=== PATIENT | female | born 1955 | race Caucasian/White ===

== ENCOUNTER 2020-12-10 08:30 | Outpatient (CLI) | payer MEDICARE, SELFPAY ==
--- NOTE | ~2020-12-10 | CT_ITS ---
. EXAMINATION: CT knee RT w con DATE: 12/10/2020 09:21 INDICATION: Right knee pain TECHNIQUE: High resolution computed tomography (CT) arthrogram of the right knee was performed follow ing intra-articular administration of 42 mL of 2:1:3 mixture of Omnipaque-240:1% lidocaine:sterile sa line but without intravenous contrast. Details of the joint injection have been dictated separately. Additional sagittal and coronal reconstructions were performed. Automated exposure control and iterat zeynep reconstruction technique were employed. The dose-length product was 447.50 mGy-cm. COMPARISON: None FINDINGS: Bone alignment is normal. No fracture. Contrast extends into a large Angulo's cyst measuring 6.8 cm cr aniocaudally and 4.3 x 1.8 cm in maximal transaxial dimensions. The muscles, ligaments and tendons ap pear unremarkable although sensitivity is significantly more limited than with MRI. Medial compartment: Complex tear along the inner third of the posterior horn of the medial meniscus with subtle truncatio n of the inner free edge at the medial side of the posterior horn resulting from lateral displacement of a small meniscal flap which extends short distance anteriorly from the lateral side of the concrete pipe maker ior horn along the shoulder the intercondylar eminence. There is shallow chondral ulceration and fiss uring involving less than 50% the cartilage thickness at the anterior weightbearing medial femoral co ndyle. Deeper fissuring and ulceration involving greater than 50% the cartilage thickness at the cent ral weightbearing medial femoral condyle. Mild partial thickness cartilage loss with smooth chondral surface along the anterior medial aspect of the medial tibial plateau. Lateral compartment: Lateral meniscus appears normal. Partial-thickness cartilage loss with smooth chondral surface along the lateral third of the of the central to posterior weightbearing lateral femoral condyle. Tiny part ial-thickness chondral fissure involving up to 50% the cartilage thickness at the medial side of the lateral tibial plateau along the shoulder the intercondylar eminence. Patellofemoral compartment: Partial-thickness chondral fissuring involving less than 50% the cartilage thickness at the patellar apical ridge and medial facet. Small central subchondral osteophyte at the junction of the inferior m edial trochlea and the anteriormost margin of the weightbearing medial femoral condyle. IMPRESSION: 1. Complex tear of the posterior horn of the medial meniscus which remains restricted to the inner fr ee edge with small displaced meniscal flap. 2. 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 3. Large Angulo's cyst. Reviewed, dictated and finalized at location A. IMPRESSION: 1. Complex tear of the posterior horn of the medial meniscus which remains rest ricted to the inner free edge with small displaced meniscal flap. 2. Mild tricompartmental osteoarthritis with moderate grade chondromalacia in t he lateral and patellofemoral compartments and at the medial tibial plateau and with moderate to high-grade chondromalacia at the central weightbearing medial femoral condyle. 3. Large Angulo's cyst.
--- NOTE | ~2020-12-10 | XR_ITS ---
EXAMINATION: XR fl inj knee RT for MR/CT DATE: 12/10/2020 09:19 INDICATION: Right knee pain TECHNIQUE: A time-out was performed to verify the patient's name, date of , and procedure to b e performed. The procedure including the risks, benefits, and alternatives was discussed with the pat ient. Risks discussed included bleeding and infection. The patient understood the risks and agreed to proceed. The skin overlying the lateral aspect of the right knee joint was prepped and draped in us ua sterile fashion. Anesthetic was administered with 1% lidocaine subcutaneously. A 22 G needle wa s advanced under fluoroscopic guidance into the joint. 42 mL of an injectate consisting of 2:1:3 of O mnipaque-240:1% lidocaine:sterile saline was instilled with intermittent fluoroscopy confirming intra -articular administration. The needle was removed and the entry site was cleaned and dressed. There were no immediate complications. Fluoroscopy exposure time was 0.1 minutes. The total number of image s was 4. FINDINGS: Real-time fluoroscopy demonstrates the needle and contrast in the right knee joint. IMPRESSION: 1. Right knee joint injection of iodinated contrast for subsequent CT arthrogram which will be dictat ed separately. Reviewed, dictated and finalized at location A. IMPRESSION: 1. Right knee joint injection of iodinated contrast for subsequent CT arthrogra m which will be dictated separately.
== END 2020-12-10 08:31 | disposition home or self-care (01) ==
PROVIDERS: PCP Internal Medicine; Visit Provider Orthopaedic Surgery
DX: S83.231A Complex tear of medial meniscus, current injury, right knee, initial encounter (principal); X58.XXXA Exposure to other specified factors, initial encounter; M71.21 Synovial cyst of popliteal space [Baker], right knee; M17.11 Unilateral primary osteoarthritis, right knee
CPT/HCPCS: 20610; 73701; 77002; Q9966

== ENCOUNTER 2021-06-15 07:14 | Outpatient (CLI) | payer MEDICARE, SELFPAY ==
--- NOTE | 2021-06-15 | ECG_ITS ---
Measurements Intervals [place] Rate: 69 P: 42 IN: 173 QRS: 4 QRSD: 95 T: 11 QT: 388 QTc: 417 Interpretive Statements SINUS RHYTHM BORDERLINE R WAVE PROGRESSION, ANTERIOR LEADS BASELINE ARTIFACT- I, II, AVR, AVL, AVF BORDERLINE ECG Electronically Signed On 06-15-2021 15:31:24 CDT by Lupillo Collazo D.O.
[2021-06-15 08:16] LABS: Anion Gap 5 mmol/L (8-16); Blood Urea Nitrogen 16 mg/dL (7-17); Calcium 9.4 mg/dL (8.4-10.2); Carbon Dioxide 32 mmol/L (22-30); Chloride 103 mmol/L (98-107); Estimated Glomerular Filt Rate > 60; Glucose 96 mg/dL (65-110); Potassium 4.2 mmol/L (3.4-5.0); Sodium 140 mmol/L (137-145)
== END 2021-06-15 07:15 | disposition home or self-care (01) ==
PROVIDERS: PCP Internal Medicine
DX: Z01.818 Encounter for other preprocedural examination (principal); I10 Essential (primary) hypertension
CPT/HCPCS: 36415; 80048; 93005

== ENCOUNTER 2021-07-17 08:50 | Emergency (ER) | payer MEDICARE, SELFPAY ==
[2021-07-17 09:04] VITALS: BP 148/86; PULSE 97; RESP 18; TEMP 37.6; O2SAT 97
--- NOTE | 2021-07-17 10:02 | ED.URI ---
HPI - URI/Sore Throat General Chief Complaint: Upper Respiratory Infection Stated Complaint: fever/cough Source: patient and RN notes reviewed Limitations: no limitations History of Present Illness HPI Narrative: The unvaccinated patient, ex-smoker/nondrinker, presents with cough. Patient states she has a couple day history of fever to 100 p.o., associated with persistent dry cough. No loss of taste/smell, sneezing, wheezing, CP, sore throat, vomiting/diarrhea, S OB. Symptoms are mild to moderate and worse supine/sleeping. [id number] testing for Covid is early/strongly positive . Related Data Allergies Allergy/AdvReac Type Severity Reaction Status Date / Time azithromycin Allergy Unknown Blister Verified 07/17/21 09:13 erythromycin base Allergy Unknown Blister Verified 07/17/21 09:13 Review of Systems Review of Systems: General/Constitutional: No weight loss, REPORTS possible fever Eyes: N0: Redness,discharge Ears/Nose/Throat: No: Epistaxis,ear discharge Respiratory: Denies: Hemoptysis Gastrointestinal: No Vomiting, Bleeding-rectal Skin: No Lumps, eruption Neurologic: No Focal Weakness,Sz Hematologic: Denies: Petechiae/Purpura Psychiatric: No: Suicida ideationl All Other Systems: Reviewed and Negative FOR[facility]LY [facility] Family History Family History Father Family history of malignant neoplasm Family history of diabetes mellitus in first degree relative Other Carcinoma of colon Social History Social History Smoking status: Former smoker Alcohol intake: never Comments At time of signature, agree with nursing past medical, surgical, social and family history. There is no relevant family history pertinent to the presenting complaint Exam Narrative: General Appearance: Well nourished EYE: PERRLA, Conjunctiva clear Ears: Auditory canal normal, TM normal Nose: Rhinorrhea, Mucousal erythema Mouth/Throat: MM moist, Uvula midline, Pharyngeal erythema Neck: Supple, No adenopathy Respiratory: No respiratory distress, distant/decreased BS at bases otherwise Clear to auscultation Cardiovascular: RRR, No JVD Musculoskeletal: Non tender, Normal strength Skin: Warm, Dry Neurological: A&O x3, CN II-XII intact Psychiatric: Normal mood, Normal affect Course Vital Signs Vital signs: Vital Signs Temperature 99.6 F 07/17/21 09:04 Pulse Rate 97 07/17/21 09:04 Respiratory Rate 18 07/17/21 09:04 Blood Pressure 148/86 H 07/17/21 09:04 Pulse Oximetry 97 07/17/21 09:04 Temperature 99.6 F 07/17/21 09:04 Pulse Rate 97 07/17/21 09:04 Respiratory Rate 18 07/17/21 09:04 Blood Pressure 148/86 H 07/17/21 09:04 Pulse Oximetry 97 07/17/21 09:04 MDM - URI/Sore Throat Lab Data Labs: Lab Results 07/17/21 Range/Units 09:43 POC SARS CoV-2 Ag Positive (Negative) Influenza A Screen Negative Reference Range: Negative Influenza B Screen Negative Reference Range: Negative Discharge Plan Discharge Clinical Impression: COVID-19 Patient Disposition: Home, Self-Care Condition: Stable Instructions: Antibiotic Form, COVID-19 (Coronavirus Disease 2019) (ED) Additional Instructions: Isolate for 10 days; inform and quarantine close contacts Get and take supplements vitamins D, C, B, and zinc; consider baby aspirin the next month Return for walking pulse ox less than 93%; considering discussing promptly this week with your PMD monoclonal antibodies Consider reviewing You tube: Dr Arce- If you get covid Prescriptions: New benzonatate 100 mg capsule 100 mg PO TID PRN (Reason: cough) Qty: 20 RF: 2 codeine-guaifenesin 10-100 mg/5 mL liquid 7.5 ml PO Q6H PRN (Reason: cough) Qty: 118 RF: 0 ivermectin 3 mg tablet 15,
== END 2021-07-17 10:00 | disposition home or self-care (01) ==
PROVIDERS: Emergency Provider Emergency Medicine; PCP Internal Medicine
DX: U07.1 COVID-19 (principal)
CPT/HCPCS: 87426; 87804; 99213; C9803; G0463

== ENCOUNTER 2021-07-22 06:37 | Outpatient (RCR) | payer MEDICARE, SELFPAY ==
[2021-07-22] MEDS: FAMOTIDINE 20 MG TABLET PO (08:13)
[2021-07-22] MEDS: ACETAMINOPHEN 325 MG TABLET 650 MG PO (08:13)
[2021-07-22] MEDS: diphenhydrAMINE HCl CAP 25 MG CAPSULE PO (08:13)
[2021-07-22 08:15] VITALS: BP 139/71; PULSE 90; RESP 18; TEMP 36.9; O2SAT 92
[2021-07-22 09:39] VITALS: BP 132/62
--- NOTE | 2021-07-22 10:12 | PDRADONCCN ---
Impression Probably Stage I RUL cancer in somewhat with compromised respiratory function from smoking and prior NAYAN lobectomy. I would recommend SBRT in 5 fractions over two weeks. I reviewed the logistics and rationale of therapy, including the need for simulation session. I also reviewed the acute and chronic risks of therapy, including fatigue, cough, trouble swallowing, SOB, rib fractrure, chestwall pain, esophageal stenosis, and very rare--but possible fatal--bleeding events. The patient voiced understanding and wishes to move forward. We will work on getting approval and schedule her for simulation before the end of the year. [facility] - Date/Time Seen 07/22/21 10:12 - Identifying Data 66 y/o female with history of T1 N0 MIKIE of left upper lung s/p left upper lobectomy. She presents now for a new lesion in the right upper lung. - History of Present Illness Nidia had a lobectomy for what proved to be a pT1N0 left upper lobe adenocarcinoma in 2018. She tolerated the lobectomy well, but did have a serious pneumothorax from biopsy prior to this that required a chest tube. She receive no adjuvant therapy for this cancer. She has been under radiological surveillance since then. A new lesion has been identified in the right upper lobe. This has enlarged on recent scans and is now about 9 mm. Staging PET/CT shows hypermetabolism in the nodule, but no signs of regional or distant disease spread. She is refusing repeat biopsy. The patient has some baseline SOB and cough. She denies chest pain. She continues to smoke 1 ppd. - Family History Family History (Last Reviewed 09/11/20 @ 07:14 by Ivania Leon [facility]) Father Family history of malignant neoplasm Family history of diabetes mellitus in first degree relative Other Carcinoma of colon - Social History Social History (Last Reviewed 03/18/21 @ 08:02 by Salud Lora [facility]) Alcohol Use: Alcohol intake: never Others: Spiritual care concerns: No Smoking Status: Smoking status: Former smoker Tobacco type: cigarettes Approximate Smoking End Date: 2005 Smoking Pack-years: Smoking packs per day: 1 Smoking cigarettes per day: 20.0 Years smoked: 35 Smoking pack-years: 35.00 - Medications Active Medications Generic Name Dose Route Start Last Admin Trade Name Freq PRN Reason Stop Dose Admin Acetaminophen 650 mg 07/22/21 00:00 07/22/21 08:13 Acetaminophen 325 Mg Tablet PO 07/22/21 23:59 650 mg PREMED YUNIOR Administration Albuterol 4 - 8 puff 07/22/21 00:00 Albuterol Sulfate (*Sp) Inhaler INHALATION 07/22/21 23:59 Q20M PRN Drug Reaction Alteplase, Recombinant 2 mg 07/22/21 00:00 Alteplase 2 Mg Vial (Cathflo) IV PUSH 07/22/21 23:59 DIRECTED PRN Line Occlusion Diphenhydramine HCl 25 mg 07/22/21 00:00 07/22/21 08:13 Diphenhydramine Hcl Cap 25 Mg Capsule PO 07/22/21 23:59 25 mg PREMED YUNIOR Administration Diphenhydramine HCl 50 mg 07/22/21 00:00 Diphenhydramine Hcl Inj 50 Mg/Ml Vial IV PUSH 07/22/21 23:59 ONCE PRN Drug Reaction Epinephrine HCl 0.3 mg 07/22/21 00:00 Epinephrine Hcl Inj 1 Mg/Ml Ampul IM 07/22/21 23:59 ONCE PRN Drug Reaction Famotidine 20 mg 07/22/21 00:00 07/22/21 08:13 Famotidine 20 Mg Tablet PO 07/22/21 23:59 20 mg PREMED YUNIOR Administration Famotidine 20 mg 07/22/21 00:00 Famotidine 20 Mg/2 Ml Vial IV PUSH 07/22/21 23:59 ONCE PRN Drug Reaction Heparin Sodium (Porcine) 500 units 07/22/21 00:00 Heparin Sodium Lock Flush 500 Units/5 Ml Syringe IV PUSH 07/22/21 23:59 DIRECTED PRN Flush Hydrocortisone Sodium Succinate 100 mg 07/22/21 00:00 Hydrocortisone Sodium Succinate 100 Mg/2 Ml Vial IV PUSH 07/22/21 23:59 ONCE PRN Drug Reaction Casirivimab 600 mg/ Imdevimab 110 mls @ 220 mls/hr 07/22/21 00:00 07/22/21 09:00 600 mg/ Sodium Chlori
--- NOTE | 2021-07-22 10:24 | P.RADPN_ITS ---
Radiation Narrative Note - Date/Time Date/Time: 07/22/21 10:24 - Narrative Narrative: SPECIAL MEDICAL RADIATION PHYSICS CONSULT REQUEST MEDICAL NECESSITY: I am requesting a special medical radiation physics consultation due to the complexity of this patient?s case. Additional medical physics work will be required above and beyond what is typically performed for standard radiation therapy treatment planning to ensure accurate and safe delivery of the radiation treatment. SPECIAL TREATMENT PROCEDURE: Stereotactic radiosurgery/radiotherapy will be utilized to treat the patient's tumor with extremely high accuracy in a single fraction or limited number of fractions (< 5). Due to the large fraction size and close proximity of critical normal tissues there is increased risk of late toxicity. Therefore, special calibration of the treatment machine is necessary to ensure extremely precise positioning of the treatment isocenter. Please perform all necessary calculations and measurements associated with assistant manager quality management and dosimetric planning involved in planning and delivering stereotactic radiosurgery to this patient. Antonio Tejeda MD, PhD
--- NOTE | 2021-07-22 10:25 | WPDRADIATNAR ---
Radiation Narrative Note - Date/Time Date/Time: 07/22/21 10:25 - Narrative Narrative: SPECIAL TREATMENT MANAGEMENT MEDICAL NECESSITY: A special treatment management code (93968) has been charged for this patient due to the additional time and effort required of myself and the department staff while performing and/or managing a special treatment situation. This procedure has been charged only once during the entire course of treatment. SPECIAL TREATMENT PROCEDURE: Stereotactic radiosurgery/radiotherapy will be utilized to treat the patient's tumor with extremely high accuracy in a single fraction or limited number of fractions (< 5). Fabrication of a unique custom rigid immobilization device, sophisticated computerized treatment planning, special consideration of the tolerance of adjacent critical normal tissues to large dose fractions, and complex delivery techniques required for this special treatment procedure exceed that typically involved in a usual course of radiation therapy. PAIN SCORE: 0/10 Intervention planned: N/a Antonio Tejeda MD
--- NOTE | 2021-07-22 10:26 | WPDONCRADTXP ---
Radiation Treatment Plan - Date/Time Date/Time: 07/22/21 10:26 - Diagnosis Diagnosis: Stage I NAYAN NSCLC - Summary Summary: TREATMENT INTENT: Cure SPECIAL TEST(S) INTERPRETED FOR TUMOR DELINEATION: None CHEMOTHERAPY CONSIDERATIONS: NOne PROTOCOL ENROLLMENT: None TREATMENT SITE(S): NAYAN NUMBER OF AREAS OR HADDAD: 1 treatment area(s) NUMBER OF TREATMENT PORTS: Arc-based SBRT IMMOBILIZATION: Alpha-cradle TREATMENT DEVICES: SBRT QA TREATMENT MODALITY: EBRT PLANNED DOSE: See constraint form FRACTIONATION: 2-3x/week TECHNIQUE CONTEMPLATED: SBRT MEDICAL NECESSITY FOR SRS TREATMENT PLANNING: An ablative radiation dose is to be delivered to the target lesion in only 1-5 fractions, which is in excess of the dose commonly utilized with conventional treatments. The target volume is in close proximity to critical normal structures (BP, lung, esophagus, spinal cord, heart) and must be treated with very narrow margins to adequately protect immediately adjacent structures in order to reduce the probability of radiation toxicity. The dose required to deliver to the target volume exceeds the tolerance of these adjacent normal structures.
--- NOTE | 2021-07-23 08:03 | PC.NURSE ---
Called Ms Levine and she stated she is not doing any better than yesterday, she is still having a fever,and had some diarrhea last night. She stated she is short of breath and I told her to go to the ER and she said she is refusing at this time, she is going to use her oxygen at home for now. She is going to continue the Benadryl and Tylenol as scheduled. She does not have any other questions at this time.
== END 2021-07-22 16:00 ==
LOC: AMCINF 06:37
PROVIDERS: PCP Internal Medicine; Visit Provider Internal Medicine Hematology & Oncology
DX: U07.1 COVID-19 (principal); I10 Essential (primary) hypertension
CPT/HCPCS: A9270; M0243; Q0243

== ENCOUNTER 2021-07-24 10:23 | Inpatient (IN) | payer MEDICARE, SELFPAY ==
[2021-07-24] VITALS (13 sets, daily range): BP systolic 121–154; BP diastolic 59–84; PULSE 82–111; RESP 18–32; TEMP 36.2–37.1; O2SAT 77–97; BMI 27.6
--- NOTE | ~2021-07-24 | XR_ITS ---
EXAMINATION: XR chest 1V portable DATE: 08/02/2021 11:28 INDICATION: Endotracheal tube repositioning TECHNIQUE: frontal view of the chest was obtained. COMPARISON: Chest radiograph dated 08/02/2021 at 6:24 AM FINDINGS: Endotracheal tube tip 3.4 cm above the margot. Nasogastric tube extends below the left hemidiaphragm with distal tip collimated off the study. Left upper extremity peripherally inserted central venous catheter (PICC) tip has advanced, now positioned in the caudal superior vena cava. No significant change in patchy airspace opacities in the bilateral mid and lower lung zones. No pleu ral effusion or pneumothorax. The cardiomediastinal silhouette is normal. IMPRESSION: 1. Lines and tubes in expected position as detailed above. 2. No significant change in patchy lung disease consistent with pneumonia in the bilateral mid and lo wer lung zones. Reviewed, dictated and finalized at location A. RDS CLERK IMPRESSION: 1. Lines and tubes in expected position as detailed above. 2. No significant change in patchy lung disease consistent with pneumonia in th e bilateral mid and lower lung zones.
--- NOTE | ~2021-07-24 | XR_ITS ---
EXAMINATION: XR chest 1V portable DATE: 07/28/2021 05:43 INDICATION: Increasing oxygen requirements. COVID-19 pneumonia. TECHNIQUE: A single frontal view of the chest was obtained. COMPARISON: Chest CT 07/24/2021, chest single view 07/24/2021 FINDINGS: There are peripheral reticular opacities in all lung zones. There are mild peripheral airsp carolyn opacities in the mid and lower lung zones. No pleural effusion or pneumothorax. The heart size is normal. IMPRESSION: 1. Diffuse lung disease with slight worsening from 07/24/2021, consistent with COVID-19 pneumonia. Reviewed, dictated and finalized at location A. ERY WORKER IMPRESSION: 1. Diffuse lung disease with slight worsening from 07/24/2021, consistent with C OVID-19 pneumonia.
--- NOTE | ~2021-07-24 | XR_ITS ---
EXAMINATION: XR chest 1V portable DATE: 07/24/2021 12:10 INDICATION: COVID positive and shortness of breath TECHNIQUE: frontal view of the chest was obtained. COMPARISON: Chest radiograph dated 09/04/2013 FINDINGS: Lung volumes are decreased. There are patchy peripheral predominant groundglass opacities in bilatera l mid and lower lung zones. No pleural effusion or pneumothorax. The cardiomediastinal silhouette is normal. Visualized bones and soft tissues are unremarkable. IMPRESSION: 1. Mild patchy airspace opacities in the bilateral mid and lower lung zones with peripheral predomina nce consistent with COVID pneumonia. Reviewed, dictated and finalized at location A. ER OUT IMPRESSION: 1. Mild patchy airspace opacities in the bilateral mid and lower lung zones wit h peripheral predominance consistent with COVID pneumonia.
--- NOTE | ~2021-07-24 | XR_ITS ---
EXAMINATION: XR chest 1V portable DATE: 07/29/2021 06:03 INDICATION: Intubation. TECHNIQUE: A single frontal view of the chest was obtained. COMPARISON: Chest single view 07/28/2021 FINDINGS: There are airspace and interstitial opacities in all lung zones bilaterally with a peripher al predominance. No pleural effusion or pneumothorax. The heart size is normal. The endotracheal tube tip is 1.2 cm above the margot. The nasogastric tube tip is beyond the inferior margin of the radiog raph, but at least to the stomach. IMPRESSION: 1. Stable diffuse lung disease, consistent with COVID-19 pneumonia. Reviewed, dictated and finalized at location A. EMS ADMINISTRATOR
--- NOTE | ~2021-07-24 | XR_ITS ---
XR chest ET placement 08/03/2021 19:07 Indication: Endotracheal tube placement Procedure: AP portable chest Comparison: 08/03/2021 and 08/02/2021 Findings: Endotracheal tube tip is directed towards the right mainstem bronchus. NG tube in the dista l esophagus. Interval development of large bilateral pneumothoraces with subcutaneous gas along the l eft lateral chest wall. There is also pneumomediastinum. There is extensive consolidation of the lung s, consistent with pneumonia. PICC line tip in the SVC. Impression: 1: Large bilateral pneumothoraces with pneumomediastinum and subcutaneous emphysema of the left late ral chest wall. 2: Extensive bilateral airspace disease, compatible with pneumonia versus edema or ARDS. 3: Endotracheal tube tube tip directed towards the right mainstem bronchus. Dr. Aly Haider discussed with the ICU casino manager Chandu Reza at 08/03/2021 19:13 BLANCHING MACHINE OPERATOR. Reviewed, dictated and finalized at location A. CHING MACHINE OPERATOR Impression: 1: Large bilateral pneumothoraces with pneumomediastinum and subcutaneous emph ysema of the left lateral chest wall. 2: Extensive bilateral airspace disease, compatible with pneumonia versus edema or ARDS. 3: Endotracheal tube tube tip directed towards the right mainstem bronchus. Dr. Aly Haider discussed with the ICU casino manager Chandu Reza at 08/03/2021 19: 13 BLANCHING MACHINE OPERATOR.
--- NOTE | ~2021-07-24 | XR_ITS ---
EXAMINATION: XR chest ET placement, XR abdomen NG/feed tube insert DATE: 07/28/2021 12:25 INDICATION: Endotracheal tube and nasogastric tube placement. TECHNIQUE: 1. frontal view of the chest was obtained. 2. AP view of the abdomen was obtained. COMPARISON: Chest radiograph dated 07/28/21 and 5:36 AM FINDINGS: Chest: Endotracheal tube tip 2.4 cm above the margot. Diffuse peripheral predominant reticular and mild airs pace opacities in the bilateral mid and lower lung zones. No pleural effusion or pneumothorax. The ca rdiomediastinal silhouette is normal. Visualized bones and soft tissues are unremarkable. Abdomen: Nasogastric tube tip in proximal side port in the body of the stomach. No dilated gas-filled bowel in the visualized abdomen. IMPRESSION: 1. And endotracheal and nasogastric tubes in expected positions. 2. Diffuse bilateral lung disease consistent with COVID pneumonia. Reviewed, dictated and finalized at location B. PRIOR AUTHORIZATION IMPRESSION: 1. And endotracheal and nasogastric tubes in expected positions. 2. Diffuse bilateral lung disease consistent with COVID pneumonia.
--- NOTE | ~2021-07-24 | XR_ITS ---
EXAMINATION: XR chest PICC line INDICATION: PICC insertion TECHNIQUE: Portable AP chest at 1216 hours and 1221 hours COMPARISON: 0959 hours FINDINGS: A left upper extremity PICC has been inserted. The second image demonstrates the PICC at th e superior cavoatrial junction. The endotracheal tube ends approximately 6.2 cm above the margot. Kvng ogastric tube is beyond the inferior margin of the radiograph. Patchy airspace opacities persist with out significant change. The cardiomediastinal silhouette is stable. There is no pleural effusion or p neumothorax. IMPRESSION: 1. Left upper extremity PICC ending with its tip at the superior cavoatrial 20, otherwise no signific ant change. Reviewed, dictated and finalized at location A. LION CUTTER IMPRESSION: 1. Left upper extremity PICC ending with its tip at the superior cavoatrial 20, otherwise no significant change.
--- NOTE | ~2021-07-24 | XR_ITS ---
EXAMINATION: XR chest 1V portable DATE: 08/03/2021 09:48 INDICATION: COVID pneumonia. Acute respiratory failure. TECHNIQUE: frontal view of the chest was obtained. COMPARISON: Chest radiograph dated 08/02/2021 FINDINGS: Endotracheal tube tip 1.4 cm above the margot. Nasogastric tube extends below the left hemidiaphragm with distal tip collimated off the study. Left upper extremity peripherally inserted central venous catheter (PICC) tip at the caudal superior vena cava. No significant change in patchy airspace opacities throughout the bilateral mid and lower lung zones. There is blunting at the left costophrenic angle bilateral cardiophrenic angles suspicious for small bilateral pleural effusions. No pneumothorax. The cardiomediastinal silhouette is normal. IMPRESSION: 1. Opacities in the bilateral mid to lower lung zones which could represent pneumonia, pulmonary rasta a, atelectasis, small pleural effusions or some combination thereof. Reviewed, dictated and finalized at location A. ERY ENGINEER IMPRESSION: 1. Opacities in the bilateral mid to lower lung zones which could represent pne umonia, pulmonary edema, atelectasis, small pleural effusions or some combinati on thereof.
--- NOTE | ~2021-07-24 | XR_ITS ---
EXAMINATION: XR chest 1V portable INDICATION: Respiratory failure, intubation TECHNIQUE: Portable AP chest at 1235 hours COMPARISON: 07/29/2021 FINDINGS: The endotracheal tube ends approximately 6.4 cm above the margot. The nasogastric tube is f ollowed as far as the stomach. Its tip is beyond the inferior margin of the radiograph. There are pat lisbeth airspace opacities of the lungs, left greater than right, with slight worsening on the left. No p leural effusion or pneumothorax is identified. The cardiomediastinal silhouette is normal. IMPRESSION: 1. Endotracheal tube approximately 6.4 cm above the margot. 2. Diffuse lung disease with interval worsening worsening on the left, consistent with COVID 19 pneum onia. Reviewed, dictated and finalized at location A. ER/WAITRESS ECONOMY CLASS IMPRESSION: 1. Endotracheal tube approximately 6.4 cm above the margot. 2. Diffuse lung disease with interval worsening worsening on the left, consiste nt with COVID 19 pneumonia.
--- NOTE | ~2021-07-24 | XR_ITS ---
EXAMINATION: XR chest ET placement DATE: 08/02/2021 06:40 INDICATION: Possible dislodged ET tube TECHNIQUE: frontal view of the chest was obtained. COMPARISON: Chest radiograph dated 08/01/2021 FINDINGS: Endotracheal tube tip 2.8 cm above the margot. Nasogastric tube extends below the left hemidiaphragm with distal tip collimated off the study. Left upper extremity peripherally inserted central venous catheter (PICC) which appears to have progressed slightly withdrawn since 07/31/2021 with distal tip now at the cephalad most superior vena cava. No significant change in the patchy airspace opacities in the bilateral mid and lower lung zones cons istent with pneumonia. Surgical round lucencies at the left lower lung zone which could represent und erlying emphysema or other cystic/cavitary lung disease. No pleural effusion or pneumothorax. The car diomediastinal silhouette is normal. IMPRESSION: 1. Endotracheal tube in expected position. Left PICC line has withdrawn with distal tip now at the ce phalad-most superior vena cava. 2. No significant change in patchy bilateral lung disease consistent with pneumonia superimposed over emphysema other cystic/cavitary lung disease in the left lower lung zone. Reviewed, dictated and finalized at location A. NDING UROLOGIST IMPRESSION: 1. Endotracheal tube in expected position. Left PICC line has withdrawn with di stal tip now at the cephalad-most superior vena cava. 2. No significant change in patchy bilateral lung disease consistent with pneum onia superimposed over emphysema other cystic/cavitary lung disease in the left lower lung zone.
--- NOTE | ~2021-07-24 | XR_ITS ---
EXAMINATION: XR chest 1V portable EXAM DATE: 08/01/2021 11:28 INDICATION: Respiratory failure. TECHNIQUE: Portable AP frontal chest x-ray was obtained. Comparison is made to prior examination from 07/31/2021, 07/30. FINDINGS: Endotracheal tube is 6 cm above the margot. There is a nasogastric tube seen with tip colli mated off the study, but below the left hemidiaphragm. Left-sided PICC line in position. Moderate amount of airspace disease with sparing of the upper lobes, consistent with pneumonia. There is significant interval progression in the amount of right-sided airspace disease over last few days , mild progression on the left. No pneumothorax or pleural effusion. Cardiomediastinal silhouette is normal. There are no osseous abnormalities identified. IMPRESSION: Bilateral pneumonia with interval progression. Reviewed, dictated and finalized at location A. ING BALL MOLDER
--- NOTE | ~2021-07-24 | XR_ITS ---
XR abdomen/kub 1V INDICATION: Evaluate G-tube position. TECHNIQUE: Limited KUB perform for evaluating NG tube . COMPARISON: 07/28/2021 FINDINGS: NG tube has been retracted, tip in the distal esophagus.. There are bilateral pneumothorace s. There is subcutaneous gas of the chest wall. IMPRESSION: 1: NG tube tip in the distal esophagus. Reviewed, dictated and finalized at location A. TRIMMER
--- NOTE | ~2021-07-24 | CT_ITS ---
EXAMINATION: CTA chest PE protocol DATE: 07/24/2021 13:11 INDICATION: Tachycardia, shortness of breath and COVID TECHNIQUE: Computed tomography (CT) pulmonary angiogram of the chest was performed with 100 mL Omnipa que-350 intravenous contrast. Additional 3D reconstructions utilizing coronal maximum intensity proje ction (MIP) were performed. Automated exposure control and iterative reconstruction technique were em ployed. The dose-length product was 348.41 mGy-cm. COMPARISON: None FINDINGS: Good contrast opacification of the pulmonary arteries. There is mild streak artifact from dense contr ast in the superior vena cava and right atrium. Mild scattered respiratory motion artifact which only mildly decreases sensitivity in some of the smaller subsegmental pulmonary arteries. No pulmonary em bolism. Peripheral and basilar predominant groundglass opacities, reticular septal line thickening an d subpleural bands. Small regions of more dense consolidation in the bilateral lower lobes. Bilateral mild central bronchiectatic changes. Mild peripheral cystic changes in the lungs. No pleural effusio n or pneumothorax. Heart size is normal. No pericardial effusion. Thoracic aorta is normal in caliber with no dissection. A few mildly dominant likely reactive right hilar lymph nodes. No pathologically enlarged thoracic lymphadenopathy. Small focus of hepatic steatosis along the ligamentum teres. Very small sliding-type hiatal hernia. Chronic mild superior endplate compression fracture at T8. IMPRESSION: 1. No pulmonary embolism. 2. Bilateral peripheral and lower lung predominant lung disease which could be due to acute pneumonia superimposed over mild emphysema or chronic interstitial lung disease in either usual interstitial p neumonia (UIP) or nonspecific interstitial pneumonia (NSIP) pattern. Reviewed, dictated and finalized at location A. [facility] [employer] IMPRESSION: 1. No pulmonary embolism. 2. Bilateral peripheral and lower lung predominant lung disease which could be due to acute pneumonia superimposed over mild emphysema or chronic interstitial lung disease in either usual interstitial pneumonia (UIP) or nonspecific inter stitial pneumonia (NSIP) pattern.
--- NOTE | ~2021-07-24 | XR_ITS ---
EXAMINATION: XR chest 1V portable INDICATION: Respiratory failure TECHNIQUE: Portable AP chest at 0957 hours COMPARISON: 07/30/2021 FINDINGS: The endotracheal tube ends approximately 6.2 cm above the margot. The nasogastric tube is i n the stomach. There are patchy airspace opacities throughout the lungs with continued interval worse laila of the left midlung zone. No pleural effusion or pneumothorax is identified. The cardiomediastin al silhouette is stable. IMPRESSION: 1. Diffuse lung disease with interval worsening on the left, consistent with COVID 19 pneumonia. Reviewed, dictated and finalized at location A. A DESIGNER IMPRESSION: 1. Diffuse lung disease with interval worsening on the left, consistent with CO VID 19 pneumonia.
--- NOTE | 2021-07-24 10:33 | ECG_ITS ---
Measurements Intervals [place] Rate: 98 P: 16 [place]: 151 QRS: -15 QRSD: 84 T: -13 QT: 329 QTc: 420 Interpretive Statements SINUS RHYTHM VOLTAGE CRITERIA FOR LVH BORDERLINE R WAVE PROGRESSION, ANTERIOR LEADS BORDERLINE ST-T WAVE ABNORMALITY- INFERIOR LEADS BORDERLINE ECG Electronically Signed On 07-24-2021 12:37:13 OUTPATIENT SERVICES DIRECTOR by Lupillo Collazo D.O.
[2021-07-24 10:54] LABS: Alveolar/Arterial O2 Gradient 144.4 mmHg; Base Excess ABG 1.6 mEq/l (+/-2.0); Carboxyhemoglobin 1.1 % THb (0-2.0); Fractional Inspired Oxygen 32 %; HCO3 ABG 23.4 mEq/l (22.0-26.0); Methemoglobin ABG 0.3 %THb (0-1.5); Oxygen Content ABG 17.1 %vol (16.0-22.0); Oxygen Saturation ABG 89.3 % (95.0-100.0); PCO2 ABG 29.4 mmHg (35.0-45.0); PO2 FiO2 Ratio Arterial Blood 1.54 %; Reduced Hemoglobin 13.8 %THb (0-5.0); Total Hemoglobin 14.4 g/dL (12.0-18.0)
[2021-07-24 10:55] LABS: pH ABG 7.519 (7.350-7.450)
[2021-07-24 10:57] LABS: Device NASAL CANNULA; Modified Allen's Test Pass; Oxyhemoglobin 84.8 % THb (90.0-100.0); PO2 ABG 49.4 mmHg (80.0-100.0); Site Drawn RIGHT RADIAL
[2021-07-24 11:00] LABS: Basophils Percent Auto 0.2 % (0.2-1.2); Hematocrit 45.3 % (37.0-47.0); Immature Granulocyte Absolute 0.03 K/mm3 (0.00-0.031); Immature Granulocyte Percent A 0.5 % (0-0.5); Lymphocytes Absolute Auto 1.04 K/mm3 (0.9-3.2); Mean Corpuscular HGB Conc 33.1 g/dl (32-36); Mean Corpuscular Hemoglobin 30.7 pg (26-34); Mean Corpuscular Volume 92.8 fl (80-100); Mean Platelet Volume 9.8 fl (7.4-10.4); Monocytes Absolute Auto 0.5 K/mm3 (0.1-0.6); Neutrophils Absolute Auto 4.9 K/mm3 (1.3-6.7); Neutrophils Percent Auto 75.3 % (45.5-73.1); Platelet Count Result 271 k/mm3 (150-375); Red Blood Count 4.88 M/mm3 (4.2-5.4); Red Cell Distribution Width 13.2 % (11.5-14.5); White Blood Count 6.5 K/mm3 (4.5-10.0)
--- NOTE | 2021-07-24 11:00 | ED.GENADULT ---
HPI - General Adult General Chief complaint: Shortness of Breath/Dyspnea Stated complaint: sob, covid Time Seen by Provider: 07/24/21 10:38 Source: patient Mode of arrival: EMS Limitations: no limitations History of Present Illness HPI narrative: Patient presents for evaluation of shortness of breath. She was seen at the [facility] last weekend with reports of cough. She tested positive for COVID at that time. She was given scripts for guaifenesin and tessalon. She states sometime between her [facility] Care visit and today she became SOB. She states she does not remember most of this past week so cannot provide me with an exact timeline of evolution of her symptoms. She has experienced fever and fatigue. She denies chills, chest pain and abdominal pain and diarrhea. Her also has COVID at this time. She states she quit smoking many years ago. EMS was contacted and brought pt in for further evaluation. She was saturating in the 70's on RA and mid 80's on 2 L NC. She received an infusion of Regen two days ago. Related Data Allergies Allergy/AdvReac Type Severity Reaction Status Date / Time azithromycin Allergy Unknown Blister Verified 07/22/21 08:16 erythromycin base Allergy Unknown Blister Verified 07/22/21 08:16 Review of Systems Review of Systems: CONSTITUTIONAL:Reports fever and fatigue EYES: Denies visual changes, redness, or discharge. ENT: Denies rhinorrhea, congestion, sore throat, or otalgia. CARDIOVASCULAR: Denies chest pain, palpitations, or edema. RESPIRATORY: Reports nonproductive cough and shortness of breath GASTROINTESTINAL: Reports episode of vomiting. Denies abdominal pain or diarrhea. GENITOURINARY: Denies dysuria or hematuria. SKIN: Denies rash or itching. MUSCULOSKELETAL: Denies back pain, joint pain, or myalgia. NEUROLOGIC: Reports generalized weakness. Denies headache, numbness, or dizziness PSYCHIATRIC: Denies anxiety or depression. [facility] Past Medical History Medical History (Updated 07/24/21 @ 12:50 by Michele Saez, SUZANNE, ) Cluster headaches GERD (gastroesophageal reflux disease) Surgical History Surgical History H/O: hysterectomy History of medial meniscus repair of left knee History of medial meniscus repair of right knee Family History Family History Father Family history of malignant neoplasm Family history of diabetes mellitus in first degree relative Other Carcinoma of colon Social History Social History Smoking packs per day: 1 Smoking cigarettes per day: 20.0 Years smoked: 35 Smoking pack-years: 35.00 Smoking status: Former smoker Tobacco type: cigarettes Alcohol intake: never Substance use: never Living arrangements: with family Gender identity (if verbalized by the patient): Female Sexual Orientation (if Verbalized by the Patient): Straight or Heterosexual Spiritual care concerns: No Exam Narrative: GENERAL: Appears acutely ill, moderate amount of distress. HEAD: Normocephalic, atraumatic. EYES: PERRLA and EOMI. ENT: Nares clear, no rhinorrhea or epistaxis. Mucous membranes moist. Oropharynx without tonsillar hypertrophy exudate or other lesions. Bilateral TMs pearly bond nonbulging NECK: Supple. No adenopathy or masses. No carotid bruits or JVD CHEST: Rales noted bilaterally. Tachypneic. O2 at 3 L per nasal cannula. HEART: Rate 110. Normal rhythm. No murmur heard. Normal peripheral pulses. ABDOMEN: Soft, nontender, nondistended, normal active bowel sounds. EXTREMITIES: Normal range of motion. No edema. SKIN: Warm, dry, no rash. NEURO: No focal deficits. Alert and oriented x3. PSYCH: Normal mood and affect. Course Course Emergency Course: This is a 66-year-old female who presented with reports of shortness of breath with recent diagnosis of
--- NOTE | 2021-07-24 11:02 | PC.NURSE ---
pt here Severino Levine can be reached at [phone]. family instructed that he cannot go into the room w/ patient due to SS. or wait in the waiting room and is to return home or wait in the car for updates.
[2021-07-24 11:14] LABS: Alanine Aminotransferase 74 U/L (4-35); Albumin Level 4.3 g/dL (3.5-5.1); Alkaline Phosphatase 246 U/L (38-126); Anion Gap 13 mmol/L (8-16); Aspartate Amino Transferase 63 U/L (14-36); Bilirubin,Total 0.6 mg/dL (0.2-1.3); Blood Urea Nitrogen 23 mg/dL (7-17); Calcium 9.7 mg/dL (8.4-10.2); Carbon Dioxide 26 mmol/L (22-30); Chloride 101 mmol/L (98-107); Estimated Glomerular Filt Rate > 60; Glucose 134 mg/dL (65-110); Potassium 3.7 mmol/L (3.4-5.0); Sodium 140 mmol/L (137-145)
[2021-07-24] MEDS: ALBUTEROL SULFATE NEB 2.5 MG/3 ML INH INHALATION (11:32)
[2021-07-24] MEDS: IPRATROPIUM BR 0.02% INH SOLN 0.5 MG/2.5 ML VIAL INHALATION (11:33)
[2021-07-24 11:43] LABS: Creatine Kinase 61 U/L (30-135); Lactate Dehydrogenase 1057 U/L (313-618)
[2021-07-24 11:52] LABS: Troponin I < 0.012 ng/mL (0.000-0.034)
[2021-07-24 11:54] LABS: Lactic Acid Reflex 1.5 mmol/L (0.7-2.1)
[2021-07-24] MEDS: methylPREDNISolone SOD SUCC 125 MG VIAL IV PUSH (13:16)
[2021-07-24] MEDS: DOXYCYCLINE IV 100 MG in SODIUM CHLORIDE 0.9% IV 100 ML IVPB (13:21)
[2021-07-24 14:45] LABS: Troponin I < 0.012 ng/mL (0.000-0.034)
--- OUTSIDE RECORDS SUMMARY | 2021-07-24 17:43 | XMS_ITS ---
:1955 Author Care Team Providers Name Role Phone DR. JOE TSE Primary Care Provider [phone] DR. JOE TSE Referring Provider [phone] Allergies None recorded. Medications Name Status Start Date Stop Date ? ? amoxicillin 250 mg/5 mL oral suspension Completed ? 10/28/2020 amoxicillin 875 mg tablet Completed ? 2020 amoxicillin 875 mg-potassium clavulanate Completed ? 10/28/2020 125 mg tablet azithromycin 250 mg tablet Completed ? 10/28 Boostrix Tdap 2.5 Lf unit-8 mcg-5 Lf/0.5 mL intramuscular syring e Completed ? 10/28/2020 ADM 0.5ML IM UTD carvedilol 12.5 mg tablet Completed ? 2020 cefuroxime axetil 500 mg tablet Completed ? 10/28/2020 codeine 10 mg-guaifenesin 100 mg/5 mL oral Completed ? 10/28/2020 liquid Emgality 120 mg/mL subcutaneous syringe Completed ? 10/28/2020 fluconazole 150 mg tablet Completed ? 2020 fluticasone propionate 50 mcg/actuation Completed ? 10/28/2020 nasal spray,suspension gabapentin 100 mg capsule Completed ? 2020 hydrocodone 5 mg-acetaminophen 325 mg Completed ? 10/28/2020 tablet levofloxacin 500 mg tablet Completed ? 10/28 Lotemax 0.5 % eye gel drops Completed ? 10/19 methocarbamol 750 mg tablet Completed ? 10/19 methylprednisolone 4 mg tablets in a dose Completed ? 10/28/2020 pack moxifloxacin 0.5 % eye drops Completed ? 05/2021 nitrofurantoin macrocrystal 50 mg capsule Completed ? 10/28/2020 prednisone 10 mg tablet Completed ? 10/29/19 2
--- OUTSIDE RECORDS SUMMARY | 2021-07-24 17:43 | XMS_ITS | Encounter Summary ---
:1955 Author Care Team Providers Name Role Phone Dr. Guillaume Morales Primary Care Provider [phone] Dr. Guillaume Morales Referring Provider [phone] Reason for Visit Right Knee Problem/Pain Assessment and Plan Assessment Note patient returns status post knee a rthroscopy right pain is resolving low bit tender still a totally should go away wi th time will see in 2 weeks if she still hurts consider cortisone injection discu ssed the findings at surgery including and gave her pictures of it thanks 1. Pain of right knee joint Discussion Note: None recorded.Patient educational handouts: No information available. Plan of Care Reminders Provider Appointments None ? ? recorded. Lab None ? ? recorded. Referral None ? ? recorded. Procedures None ? ? recorded. Surgeries None ? ? recorded. Imaging None ? ? recorded. Medications Name Start Date ? ? carvedilol 12.5 mg tablet ? Take 1 tablet twice a day by oral route. Elderberry ? 1250 mg Fish Oil 10/24/2016 takes 1200mg daily Kenalog 10 mg/mL suspension for injection ? In office injection administered by the provider lecithin 1,200 mg capsule 10/24/2016 Take 1 capsule every da
--- OUTSIDE RECORDS SUMMARY | 2021-07-24 17:43 | XMS_ITS ---
:1955 Author Care Team Providers Name Role Phone DR. JOE TSE Primary Care Provider [phone] DR. JOE TSE Referring Provider [phone] Allergies None recorded. Medications Name Status Start Date Stop Date ? ? amoxicillin 250 mg/5 mL oral Completed ? 05/2021 suspension amoxicillin 875 mg tablet Completed ? 2020 amoxicillin 875 mg-potassium Completed ? 05/2021 clavulanate 125 mg tablet azithromycin 250 mg tablet Completed ? 10/28 Boostrix Tdap 2.5 Lf unit-8 mcg-5 Completed ? 10/28/2020 Lf/0.5 mL intramuscular syringe carvedilol 12.5 mg tablet Active ? Not av ailable cefuroxime axetil 500 mg tablet Completed ? 10/28/2020 Cheratussin AC 10 mg-100 mg/5 mL oral liquid Completed ? 11/08/2018 Take 10 mL every 4-6 hours by oral route as needed. Elderberry Active ? Not available 1250 mg Emgality 120 mg/mL subcutaneous Completed ? 10/28/2020 syringe Fish Oil Active 10/24/2016 Not available takes 1200mg daily fluconazole 150 mg tablet Completed ? 2020 fluticasone propionate 50 Completed ? 2020 mcg/actuation nasal spray,suspension gabapentin 100 mg capsule Completed ? 2020 hydrocodone 5 mg-acetaminophen 325 Completed ? 10/28/2020 mg tablet Kenalog 10 mg/mL suspension for injection Active ? Not available In office injection administered by the provider lecithin 1,200 mg capsule Active 10/24/2016 Not av ailable
--- OUTSIDE RECORDS SUMMARY | 2021-07-24 17:43 | XMS_ITS | Encounter Summary ---
:1955 Author Care Team Providers Name Role Phone Dr. Guillaume Morales Primary Care Provider [phone] Dr. Guillaume Morales Referring Provider [phone] Reason for Visit Right Knee Problem/Pain Assessment and Plan Assessment Note patient returns knee pain right sh e has meniscal pathology and tear clearly she would benefit from arthroscopic interven tion as she would like a shot today to keep going she is going to call me when she i s ready injected the knee with 20 mg Kenalog 4 cc 1% lidocaine follow-up in my 1. Pain in right knee ? Kenalog 10 mg/mL suspensio n for injection ? lidocaine (PF) 10 mg/mL (1 %) injection solution ? injection/aspiration joint /bursa (PROC) - in office procedure, administered by provider Discussion Note: None recorded.Patient educational handouts: No information available. Plan of Care Reminders Provider Appointments None ? ? recorded. Lab None ? ? recorded. Referral None ? ? recorded. Procedures 05/04/2021 In-Office O rder Injection/aspiratio n Joint/bursa (PROC) Surgeries None ? ? recorded. Imaging None ? ? recorded. Medications Name Start Date ? ? carvedilol 12.5 mg tablet ?
--- OUTSIDE RECORDS SUMMARY | 2021-07-24 17:43 | XMS_ITS | Encounter Summary ---
:1955 Author Care Team Providers Name Role Phone Dr. Guillaume Morales Primary Care Provider [phone] Dr. Guillaume Morales Referring Provider [phone] Reason for Visit Right Knee Problem/Pain Assessment and Plan Assessment Note Patient returns has knee pain with degenration right. Will try injection, prednisone and therapy 1. Pain of right knee joint ? Kenalog 10 mg/mL suspensio n for injection ? lidocaine (PF) 10 mg/mL (1 %) injection solution ? injection/aspiration joint /bursa (PROC) - in office procedure, administered by provider Discussion Note: None recorded.Patient educational handouts: No information available. Plan of Care Reminders Provider Appointments None ? ? recorded. Lab None ? ? recorded. Referral None ? ? recorded. Procedures 07/13/2021 In-Office O rder Injection/aspiratio n Joint/bursa (PROC) Surgeries None ? ? recorded. Imaging None ? ? recorded. Medications Name Start Date ? ? carvedilol 12.5 mg tablet ? Take 1 tablet twice a day by oral route. Elderberry ? 1250 mg Fish Oil 10/24/2016 takes 1200mg
--- OUTSIDE RECORDS SUMMARY | 2021-07-24 17:43 | XMS_ITS ---
:1955 Author Care Team Providers Name Role Phone DR. JOE TSE Primary Care Provider [phone] DR. JOE TSE Referring Provider [phone] Allergies Code Code System Name Reaction Severity Status Onset NKDA ? Medications Name Status Start Date Stop Date ? ? amoxicillin 875 mg tablet Completed ? 2017 amoxicillin 875 mg-potassium Completed ? clavulanate 125 mg tablet azithromycin 250 mg tablet Completed ? 10/24 Boostrix Tdap 2.5 Lf unit-8 mcg-5 Lf/0.5 mL intramuscular syring e Active ? Not available ADM 0.5ML IM UTD carvedilol 12.5 mg tablet Active ? Not av ailable cefuroxime axetil 500 mg tablet Completed ? 10/24/2016 Cheratussin AC 10 mg-100 mg/5 mL oral liquid Completed ? 11/08/2018 Take 10 mL every 4-6 hours by oral route as needed. Emgality 120 mg/mL subcutaneous Active ? Not available syringe Fish Oil Active ? Not available takes 1200mg daily fluconazole 150 mg tablet Completed ? 2018 lecithin 1,200 mg capsule Active ? Not av ailable Take 1 capsule every day by oral route. magnesium aspartate HCl Active ? Not avai lable takes 2 tabs daily methocarbamol 750 mg tablet Completed ? 04/22 methylprednisolone 4 mg tablets in Completed ? 05/11/2017 a dose pack moxifloxacin 0.5 % eye drops Completed ? nitrofurantoin 50 mg tablet Active 05/10/2019 Not available Take by oral route as needed.
--- OUTSIDE RECORDS SUMMARY | 2021-07-24 17:43 | XMS_ITS ---
:1955 Author Care Team Providers Name Role Phone DR. JOE TSE Primary Care Provider [phone] DR. JOE TSE Referring Provider [phone] Allergies Code Code System Name Reaction Severity Status Onset NKDA ? Medications Name Status Start Date Stop Date ? ? amoxicillin 875 mg tablet Active ? Not av ailable amoxicillin 875 mg-potassium clavulanate Active ? Not available 125 mg tablet azithromycin 250 mg tablet Active ? Not a vailable Boostrix Tdap 2.5 Lf unit-8 mcg-5 Lf/0.5 mL intramuscular syring e Active ? Not available ADM 0.5ML IM UTD carvedilol 12.5 mg tablet Active ? Not av ailable cefuroxime axetil 500 mg tablet Active ? Not available codeine 10 mg-guaifenesin 100 mg/5 mL Active ? Not available oral liquid Emgality 120 mg/mL subcutaneous syringe Active ? Not available fluconazole 150 mg tablet Active ? Not av ailable Lotemax 0.5 % eye gel drops Unknown ? Not available methocarbamol 750 mg tablet Active ? Not available methylprednisolone 4 mg tablets in a dose Active ? Not available pack moxifloxacin 0.5 % eye drops Active ? Not available nitrofurantoin macrocrystal 50 mg capsule Active ? Not available prednisone 20 mg tablet Active ? Not avai lable ProAir HFA 90 mcg/actuation aerosol Active ? Not available inhaler Prolensa 0.07 % eye drops Active ? Not av ailable Shingrix (PF) 50 mcg/0.5 mL intramuscular suspension, kit Active ?
--- NOTE | 2021-07-24 18:31 | ADMGEN ---
This patient, Nidia Levine, was admitted to 3 Med Surg Room [id number]. Patient/family oriented to hospital policies and general routines including ID bracelet, bed and alarms, visiting hours, pain management, procedures, bathroom and other care routines, personal items, smoking policy, room service/diet, and visiting hours. Information on how to activate the Rapid Response Team has been discussed. Patient/Family are encouraged to report perceived risks to care and to ask questions if they do not understand what they are told or what they should do.
[2021-07-24] MEDS: SODIUM CHLORIDE 0.9% IV 1,000 ML 125 ML IV CONT (18:40)
--- NOTE | 2021-07-24 20:01 | PM.IMHP ---
H&P: HPI History of Present Illness Date/Time: 07/24/21 20:01 Chief Complaint: Increased shortness breath with COVID Narrative: 66-year-old female with past medical history of cluster headaches and hypertension who presented to the ER with increased shortness of breath associated with known COVID infection. The patient reports that she tested positive for COVID-19 on the 17 of July. She has been feeling ill for a few days prior to that with nonproductive cough and thought she had bronchitis. She went to urgent care where she was tested and found to be positive. She was discharged home with cough suppressant medications. She continued to have progressive shortness of breath. She reported that 3 days ago she was checking her pulse ox in her pulse ox was down to 76%. She has home O2 that she uses periodically for cluster headaches. She placed herself on her home O2 at 8 L with improvement in her oxygen saturations. She received regen-COV on 07/22/2021. I asked her of her pulse ox was low when she received her infusion in she stated that she had used her oxygen when she went to the infusion center. She did not notify them that she is not usually on oxygen on a continuous basis. She realized that if she continued using her home oxygen at the same rate she would run out of her home oxygen so she decreased to 6 L nasal cannula. On the 6 L nasal cannula her oxygen saturations for better but was still only in the 80s. Over the last 12-24 her dyspnea was worsening and she decided to come to the ER. She has been having intermittent fevers since onset of illness and her temperatures have been ranging between 100? and 102?. Her cough is nonproductive. She has not had any chest pain, palpitations or lower extremity swelling. She denies any orthopnea. She did have some loose stools in the 1st few days of her symptoms but these have resolved. She denies any loss of sense of taste or smell. She has not had the unusual headaches, myalgias or arthralgias. She denies any sore throat, nausea or vomiting. She reported to the ER staff that. She denies any history of chronic bronchitis/COPD. She does have a history of smoking but quit smoking 15 years ago. She has not know of any history of interstitial lung disease. She does not have any shortness of breath at baseline prior to this illness. She denies any known cardiac condition. Review of Systems Review of Systems: 12 systems were reviewed with pertinent positives and negatives per HPI. Except as documented in the HPI, all other systems were reviewed and are negative. [facility] Past Medical History Medical History (Updated 07/24/21 @ 23:46 by Maria Elena Altamirano DO) Cluster headaches Essential (primary) hypertension GERD (gastroesophageal reflux disease) Lumbar back pain Surgical History Surgical History (Updated 07/24/21 @ 23:33 by Maria Elena Altamirano DO) H/O: hysterectomy History of medial meniscus repair of left knee History of medial meniscus repair of right knee Status post cataract extraction of both eyes with insertion of intraocular lens Family History Family History (Updated 07/24/21 @ 20:07 by Maria Elena Altamirano DO) Father Carcinoma of colon Diabetes mellitus Social History Social History (Updated 07/24/21 @ 20:10 by Maria Elena Altamirano DO) Social History: Primary care physician: Dr. Guillaume Morales Code status: Full code Surrogate decision maker: Severino Levine () Smoking packs per day: 1 Smoking cigarettes per day: 20.0 Years smoked: 35 Smoking pack-years: 35.00 Smoking status: Former smoker Tobacco type: cigarettes Alcohol intake: never Substance use: never Living arrangements: with family Gender identity (if verbalized by the patient): Female Sexual Orientation (if Verbalized by the Patient): Straight or Heterosexual Spiritual care concerns: No Meds Home Medications and Allergies Home Medications Medication Instructions R
[2021-07-24 21:04] LABS: INR 0.9; Prothrombin Time 12.3 Seconds (11.1-14.7)
[2021-07-24] MEDS: REMDESIVIR 200 MG/NS 250 ML 200 MG/250 ML BAG 250 MG IVPB (22:31)
[2021-07-24] MEDS: carvediloL 12.5 MG TABLET PO (22:32)
[2021-07-24] MEDS: BENZONATATE 100 MG CAPSULE PO (22:40)
[2021-07-25] VITALS (18 sets, daily range): BP systolic 117–132; BP diastolic 59–73; PULSE 84–100; RESP 18–24; TEMP 36.3–37.1; O2SAT 88–98
[2021-07-25] MEDS: ALBUTEROL SULFATE (*SP) INHALER 4 PUFF INHALATION ×4 (02:30→19:47)
[2021-07-25] MEDS: ACETAMINOPHEN 325 MG TABLET 650 MG PO ×3 (03:05→22:02)
--- NOTE | 2021-07-25 06:01 | PCRCNOTE ---
PT desated throughout the night into the low 80 high 70. PT was placed on a High flow nasal cannula and got sats up to 90-91. When pt moved they desated quickly and it was hard to recover. Pt ended up on 15 L high flow. A non rebreather mask was also added for when the pt moves to go to the bed side commode. With adding the nonrebreather the pt would not desat as fast or as low and was able to recover quickly and well. The pt is now on 13L high flow nasal cannula with the help of a nonrebreather mask with activity at 10 LPM. At this time the pt is sating 95% and is doing well. The pt still has a cough but their SOB is improving.
[2021-07-25 06:20] LABS: Hematocrit 36.9 % (37.0-47.0); Hemoglobin 12.4 g/dL (12.0-15.0); Immature Granulocyte Absolute 0.01 K/mm3 (0.00-0.031); Immature Granulocyte Percent A 0.2 % (0-0.5); Lymphocytes Absolute Auto 0.55 K/mm3 (0.9-3.2); Lymphocytes Percent Auto 13.5 % (18.3-44.2); Mean Corpuscular HGB Conc 33.6 g/dl (32-36); Mean Corpuscular Volume 92.3 fl (80-100); Mean Platelet Volume 9.7 fl (7.4-10.4); Monocytes Absolute Auto 0.2 K/mm3 (0.1-0.6); Monocytes Percent Auto 5.9 % (2.6-8.5); Neutrophils Absolute Auto 3.3 K/mm3 (1.3-6.7); Neutrophils Percent Auto 80.4 % (45.5-73.1); Platelet Count Result 246 k/mm3 (150-375); Red Cell Distribution Width 12.9 % (11.5-14.5); White Blood Count 4.1 K/mm3 (4.5-10.0)
[2021-07-25 06:29] LABS: INR 0.9; Prothrombin Time 12.2 Seconds (11.1-14.7)
[2021-07-25 06:31] LABS: Alanine Aminotransferase 48 U/L (4-35); CRP 7.1 mg/dL (<1.0); Lactate Dehydrogenase 769 U/L (313-618)
[2021-07-25 08:02] LABS: Anion Gap 9 mmol/L (8-16); Blood Urea Nitrogen 17 mg/dL (7-17); Calcium 8.6 mg/dL (8.4-10.2); Carbon Dioxide 24 mmol/L (22-30); Chloride 103 mmol/L (98-107); Estimated CRCL calculation 88 ml/min; Estimated Glomerular Filt Rate > 60; Glucose 132 mg/dL (65-110); Potassium 3.6 mmol/L (3.4-5.0); Sodium 136 mmol/L (137-145)
[2021-07-25] MEDS: carvediloL 12.5 MG TABLET PO ×2 (08:08→22:00)
[2021-07-25] MEDS: TRIAMTERENE 37.5 MG/HCTZ 25 MG (MAXZIDE) TABLET 1 TAB PO (08:08)
[2021-07-25] MEDS: ENOXAPARIN 40 MG/0.4 ML SYRINGE SUB-Q (08:08)
[2021-07-25] MEDS: SUMAtriptan SUCCINATE 25 MG TABLET 100 MG PO (08:09)
--- NOTE | 2021-07-25 11:40 | PM.IMPN ---
Progress Note: A&P Assessment and Plan (1) Acute hypoxemic respiratory failure: Code(s): J96.01 - Acute respiratory failure with hypoxia Status: Acute Assessment and Plan: Acute respiratory failure with hypoxia secondary to COVID-19 pneumonia. Patient is stable hemodynamically. She had been diagnosed in the outpatient setting and had already received immunomodulator therapy as an outpatient. Patient appropriately started on Rocephin and doxycycline and receive a single dose of Solu-Medrol in the ED. currently patient started on a COVID protocol with Decadron and REM the severe. She received schedule albuterol inhalers. Will monitor serial inflammatory markers. Ferritin is elevated at 500. Mild elevation of LDH at 769 (2) Pneumonia due to COVID-19 virus: Code(s): U07.1 - COVID-19; J12.82 - Pneumonia due to coronavirus disease 2019 Status: Acute Assessment and Plan: As above. (3) Transaminitis: Code(s): R74.01 - Elevation of levels of liver transaminase levels Status: Acute Assessment and Plan: Marginal elevation of liver function tests. Currently asymptomatic. Continue to monitor. Additional Plan Patient has acute hypoxic respiratory failure due to COVID 19 pneumonia. The patient may have some component of underlying lung disease that she (not know about given CT findings. The patient has already received immune modulator therapy as outpatient. The patient received IV Solu-Medrol and 1 dose of Rocephin and doxycycline in the ER. Will hold off on any additional antibiotic therapy as the patient clearly has pneumonia due to COVID. Will change the patient to Decadron and will add Remdesivir. The patient does have some transaminitis but still falls within limits that her acceptable for Remdesivir use. Will check serial inflammatory markers and hepatic enzymes. The patient will be placed on scheduled albuterol inhalers. He Subjective Date/time seen: Narrative. Unvaccinated 66-year-old female with past medical history of cluster headaches and hypertension who presented to the ER with increased shortness of breath associated with known COVID infection 07/25/21 11:40 S: Patient examined at the bedside she is complaining of headaches. Otherwise denies respiratory complaints. She ate 1/3 of her breakfast. Review of Systems Review of Systems: All systems reviewed & are unremarkable except as noted in HPI and below Constitutional: Constitutional: Reports as per HPI, Reports no additional constitutional complaints and Denies chills Eyes: Eyes: Reports as per HPI and Reports no additional eye complaints ENT: Reports system reviewed and no additional complaints, except as documented and Reports as per HPI Cardiovascular: Cardiovascular: Reports as per HPI and Reports no additional cardiovascular complaints Respiratory: Respiratory: Reports as per HPI, Reports cough and Reports dyspnea Gastrointestinal: Gastrointestinal: Reports as per HPI, Denies diarrhea, Denies nausea and Denies vomiting Genitourinary: Genitourinary: Reports as per HPI Musculoskeletal: Musculoskeletal: Reports as per HPI and Denies back pain Integumentary/Breasts: Skin/Breast: Reports as per HPI and Denies rash Neurologic: Reports as per HPI and Reports headache(s) Psychiatric: Psychiatric: Reports as per HPI and Denies confusion Exam Narrative: PHYSICAL EXAM: WEIGHT 73.1 kg BMI 27.7 General: Well-developed well-nourished, no acute distress HEENT: Mucous membranes are moist, no oral pharyngeal erythema, good dentition Respiratory: Decreased breath sounds bilaterally, no increased work of breathing Cardiovascular: Regular rate, regular rhythm, Gastrointestinal: Soft, nontender, nondistended, positive bowel sounds, no hepatosplenomegaly Skin: Tanned, non jaundice Musculoskeletal: No clubbing, cyanosis or edema Neurological: Alert and oriented, speech is clear, no facial asymmetry, normal gait Psy
[2021-07-25] MEDS: REMDESIVIR 100 MG/NS 250 ML 100 MG/250 ML BAG 250 MG IVPB (22:00)
[2021-07-26] VITALS (12 sets, daily range): BP systolic 105–127; BP diastolic 42–61; PULSE 73–87; RESP 18–19; TEMP 36.1–36.6; O2SAT 88–100
[2021-07-26] MEDS: ALBUTEROL SULFATE (*SP) INHALER 4 PUFF INHALATION ×4 (02:54→20:53)
[2021-07-26 07:33] LABS: Alanine Aminotransferase 50 U/L (4-35); Estimated CRCL calculation 75 ml/min; Estimated Glomerular Filt Rate > 60
[2021-07-26 08:03] LABS: Prothrombin Time 12.8 Seconds (11.1-14.7)
[2021-07-26] MEDS: carvediloL 12.5 MG TABLET PO ×2 (09:38→20:04)
[2021-07-26] MEDS: BENZONATATE 100 MG CAPSULE PO (09:40)
[2021-07-26] MEDS: ENOXAPARIN 40 MG/0.4 ML SYRINGE SUB-Q (09:40)
[2021-07-26] MEDS: TRIAMTERENE 37.5 MG/HCTZ 25 MG (MAXZIDE) TABLET 1 TAB PO (09:40)
--- NOTE | 2021-07-26 14:13 | PM.IMPN ---
Progress Note: A&P Assessment and Plan (1) Acute hypoxemic respiratory failure: Code(s): J96.01 - Acute respiratory failure with hypoxia Status: Acute Assessment and Plan: Acute respiratory failure with hypoxia secondary to COVID-19 pneumonia. Patient is stable hemodynamically. She had been diagnosed in the outpatient setting and had already received immunomodulator therapy as an outpatient. Patient appropriately started on Rocephin and doxycycline and receive a single dose of Solu-Medrol in the ED. currently patient started on a COVID protocol with Decadron and Remdesivir. Continue schedule albuterol inhalers. Will monitor serial inflammatory markers. Ferritin is elevated at 500. Mild elevation of LDH at 769 (2) Pneumonia due to COVID-19 virus: Code(s): U07.1 - COVID-19; J12.82 - Pneumonia due to coronavirus disease 2018 Status: Acute Assessment and Plan: As above. (3) Transaminitis: Code(s): R74.01 - Elevation of levels of liver transaminase levels Status: Acute Assessment and Plan: Marginal elevation of liver function tests. Currently asymptomatic. Continue to monitor. (4) GERD (gastroesophageal reflux disease): Code(s): K21.9 - Gastro-esophageal reflux disease without esophagitis Status: Acute Assessment and Plan: Currently asymptomatic. (5) Cluster headache syndrome: Qualifiers: Headache chronicity pattern: chronic headache Intractability: intractable Qualified Code(s): G44.021 - Chronic cluster headache, intractable Code(s): G44.009 - Cluster headache syndrome, unspecified, not intractable Status: Acute Assessment and Plan: Currently asymptomatic. Tylenol as needed. (6) Hypertension: Code(s): I10 - Essential (primary) hypertension Status: Acute Assessment and Plan: Were controlled on triamterene /HCTZ and carvedilol. On a BP in the 105/54-120 7/61 range. Additional Plan Patient has acute hypoxic respiratory failure due to COVID 19 pneumonia. The patient may have some component of underlying lung disease that she (not know about given CT findings. The patient has already received immune modulator therapy as outpatient. The patient received IV Solu-Medrol and 1 dose of Rocephin and doxycycline in the ER. Will hold off on any additional antibiotic therapy as the patient clearly has pneumonia due to COVID. Will change the patient to Decadron and will add Remdesivir. The patient does have some transaminitis but still falls within limits that her acceptable for Remdesivir use. Will check serial inflammatory markers and hepatic enzymes. The patient will be placed on scheduled albuterol inhalers. He Subjective Date/time seen: nvaccinated 66-year-old female with past medical history of cluster headaches and hypertension who presented to the ER with increased shortness of breath associated with previously diagnosed COVID infection. Currently on remdesivir and IV steroids. 07/26/21 15:13 S: patient is examined at the bedside. She denies headaches today. Sleep adequate and appetite is preserved. Her O2 requirement has improved from up to 15 L down to 10 liters. Review of Systems Review of Systems: All systems reviewed & are unremarkable except as noted in HPI and below Constitutional: Constitutional: Reports as per HPI, Reports no additional constitutional complaints, Denies chills and Reports headache(s) Eyes: Eyes: Reports as per HPI and Reports no additional eye complaints ENT: Reports system reviewed and no additional complaints, except as documented, Reports as per HPI and Reports headache(s) Cardiovascular: Cardiovascular: Reports as per HPI, Reports no additional cardiovascular complaints and Reports dyspnea Respiratory: Respiratory: Reports as per HPI, Reports cough and Reports dyspnea Gastrointestinal: Gastrointestinal: Reports as per HPI, Denies diarrhea, Denies nausea and Denie
[2021-07-26 16:18] LABS: Alveolar/Arterial O2 Gradient 341.7 mmHg; Base Excess ABG 2.4 mEq/l (+/-2.0); Fractional Inspired Oxygen 60 %; HCO3 ABG 24.3 mEq/l (22.0-26.0); Oxygen Content ABG 17.1 %vol (16.0-22.0); Oxygen Saturation ABG 91.4 % (95.0-100.0); Oxyhemoglobin 88.2 % THb (90.0-100.0); PCO2 ABG 29.9 mmHg (35.0-45.0); PO2 ABG 53.2 mmHg (80.0-100.0); PO2 FiO2 Ratio Arterial Blood 0.89 %; Total Hemoglobin 13.8 g/dL (12.0-18.0)
[2021-07-26 16:21] LABS: Modified Allen's Test Pass; Site Drawn LEFT RADIAL; pH ABG 7.528 (7.350-7.450)
[2021-07-26 16:22] LABS: Device HIGH FLOW NASAL CANN
[2021-07-26 16:24] LABS: Basophils Percent Auto 0.1 % (0.2-1.2); Eosinophils Absolute Auto 0.1 K/mm3 (0-0.3); Eosinophils Percent Auto 0.4 % (0-4.4); Hematocrit 38.6 % (37.0-47.0); Hemoglobin 13.2 g/dL (12.0-15.0); Immature Granulocyte Absolute 0.13 K/mm3 (0.00-0.031); Immature Granulocyte Percent A 0.9 % (0-0.5); Immature Platelet Fraction Pct 3.1 % (0.9-11.2); Lymphocytes Absolute Auto 0.54 K/mm3 (0.9-3.2); Lymphocytes Percent Auto 3.9 % (18.3-44.2); Mean Corpuscular HGB Conc 34.2 g/dl (32-36); Mean Corpuscular Hemoglobin 31.5 pg (26-34); Mean Corpuscular Volume 92.1 fl (80-100); Mean Platelet Volume 10.4 fl (7.4-10.4); Monocytes Absolute Auto 0.5 K/mm3 (0.1-0.6); Monocytes Percent Auto 3.7 % (2.6-8.5); Neutrophils Absolute Auto 12.7 K/mm3 (1.3-6.7); Nucleated Red Blood Cells Perc 0.1 % (0.0-0.2); Platelet Count Result 395 k/mm3 (150-375); Red Blood Count 4.19 M/mm3 (4.2-5.4); Red Cell Distribution Width 12.9 % (11.5-14.5)
[2021-07-26 16:32] LABS: Anion Gap 11 mmol/L (8-16); Blood Urea Nitrogen 22 mg/dL (7-17); Carbon Dioxide 24 mmol/L (22-30); Chloride 100 mmol/L (98-107); Estimated CRCL calculation 75 ml/min; Estimated Glomerular Filt Rate > 60; Glucose 128 mg/dL (65-110); Sodium 135 mmol/L (137-145)
[2021-07-26] MEDS: REMDESIVIR 100 MG/NS 250 ML 100 MG/250 ML BAG 250 MG IVPB (21:31)
[2021-07-26] MEDS: ACETAMINOPHEN 325 MG TABLET 650 MG PO (22:50)
[2021-07-27] VITALS (21 sets, daily range): BP systolic 124–143; BP diastolic 59–73; PULSE 68–104; RESP 17–32; TEMP 35.8–36.7; O2SAT 85–98
[2021-07-27] MEDS: ALBUTEROL SULFATE (*SP) INHALER 4 PUFF INHALATION ×4 (02:07→21:56)
[2021-07-27 07:19] LABS: Hematocrit 39.5 % (37.0-47.0); Hemoglobin 13.5 g/dL (12.0-15.0); Mean Corpuscular HGB Conc 34.2 g/dl (32-36); Mean Corpuscular Hemoglobin 30.9 pg (26-34); Mean Corpuscular Volume 90.4 fl (80-100); Mean Platelet Volume 9.8 fl (7.4-10.4); Platelet Count Result 391 k/mm3 (150-375); Red Blood Count 4.37 M/mm3 (4.2-5.4); Red Cell Distribution Width 12.6 % (11.5-14.5); White Blood Count 13.1 K/mm3 (4.5-10.0)
[2021-07-27 07:43] LABS: Alanine Aminotransferase 86 U/L (4-35); Albumin Level 3.7 g/dL (3.5-5.1); Alkaline Phosphatase 149 U/L (38-126); Anion Gap 11 mmol/L (8-16); Aspartate Amino Transferase 52 U/L (14-36); Bilirubin,Total 0.5 mg/dL (0.2-1.3); Blood Urea Nitrogen 25 mg/dL (7-17); Calcium 8.9 mg/dL (8.4-10.2); Carbon Dioxide 22 mmol/L (22-30); Chloride 102 mmol/L (98-107); Estimated CRCL calculation 88 ml/min; Estimated Glomerular Filt Rate > 60; Glucose 91 mg/dL (65-110); Potassium 3.5 mmol/L (3.4-5.0); Sodium 135 mmol/L (137-145)
[2021-07-27 08:20] LABS: Prothrombin Time 13.5 Seconds (11.1-14.7)
[2021-07-27] MEDS: ENOXAPARIN 40 MG/0.4 ML SYRINGE SUB-Q (08:34)
[2021-07-27] MEDS: SUMAtriptan SUCCINATE 25 MG TABLET 100 MG PO (08:34)
[2021-07-27] MEDS: carvediloL 12.5 MG TABLET PO ×2 (08:34→20:06)
[2021-07-27] MEDS: TRIAMTERENE 37.5 MG/HCTZ 25 MG (MAXZIDE) TABLET 1 TAB PO (08:34)
[2021-07-27 11:20] LABS: Alveolar/Arterial O2 Gradient 613.5 mmHg; Base Excess ABG 2.7 mEq/l (+/-2.0); Fractional Inspired Oxygen 100 %; HCO3 ABG 24.7 mEq/l (22.0-26.0); Oxygen Content ABG 18.2 %vol (16.0-22.0); Oxygen Saturation ABG 95.6 % (95.0-100.0); Oxyhemoglobin 93.2 % THb (90.0-100.0); PCO2 ABG 30.5 mmHg (35.0-45.0); PO2 FiO2 Ratio Arterial Blood 0.69 %; Total Hemoglobin 13.9 g/dL (12.0-18.0)
[2021-07-27 11:22] LABS: pH ABG 7.526 (7.350-7.450)
[2021-07-27 11:23] LABS: Device NON-REBREATHER MASK; Modified Allen's Test Pass; Site Drawn LEFT RADIAL
--- NOTE | 2021-07-27 13:48 | PM.IMPN ---
Progress Note: A&P Assessment and Plan (1) Acute hypoxemic respiratory failure: Code(s): J96.01 - Acute respiratory failure with hypoxia Status: Acute Assessment and Plan: Worsening acute respiratory failure with hypoxia secondary to COVID-19 pneumonia. Patient is stable hemodynamically. She is tachypneic and anxious. She had been previously diagnosed in the outpatient setting and had already received immunomodulator therapy as an outpatient. Patient appropriately started on Rocephin and doxycycline and receive a single dose of Solu-Medrol in the ED. currently patient started on a COVID protocol with Decadron and Remdesivir. Patient started on high flow nasal therapy with FiO2 90%. Continue schedule albuterol inhalers. Will monitor serial inflammatory markers. Ferritin is elevated at 500. Mild elevation of LDH at 769 (2) Pneumonia due to COVID-19 virus: Code(s): U07.1 - COVID-19; J12.82 - Pneumonia due to coronavirus disease 2018 Status: Acute Assessment and Plan: As above. (3) Transaminitis: Code(s): R74.01 - Elevation of levels of liver transaminase levels Status: Acute Assessment and Plan: Marginal elevation of liver function tests. Currently asymptomatic. Continue to monitor. (4) GERD (gastroesophageal reflux disease): Code(s): K21.9 - Gastro-esophageal reflux disease without esophagitis Status: Acute Assessment and Plan: Currently asymptomatic. (5) Cluster headache syndrome: Qualifiers: Headache chronicity pattern: chronic headache Intractability: intractable Qualified Code(s): G44.021 - Chronic cluster headache, intractable Code(s): G44.009 - Cluster headache syndrome, unspecified, not intractable Status: Acute Assessment and Plan: Currently asymptomatic. Tylenol as needed. (6) Hypertension: Code(s): I10 - Essential (primary) hypertension Status: Acute Assessment and Plan: HT is well controlled on triamterene /HCTZ and carvedilol with BP in the 1124/61-143/66 range. Additional Plan Patient has acute hypoxic respiratory failure due to COVID 19 pneumonia. The patient may have some component of underlying lung disease that she (not know about given CT findings. The patient has already received immune modulator therapy as outpatient. The patient received IV Solu-Medrol and 1 dose of Rocephin and doxycycline in the ER. Will hold off on any additional antibiotic therapy as the patient clearly has pneumonia due to COVID. Will change the patient to Decadron and will add Remdesivir. The patient does have some transaminitis but still falls within limits that her acceptable for Remdesivir use. Will check serial inflammatory markers and hepatic enzymes. The patient will be placed on scheduled albuterol inhalers. He Subjective Date/time seen: Unvaccinated 66-year-old female with past medical history of cluster headaches and hypertension who presented to the ER with increased shortness of breath associated with previously diagnosed COVID infection. Currently on remdesivir and IV steroids. Increased oxygen requirements today; baricitinib was added; patient started on airvo and transferred to IMU. 07/27/21 18:48 S: patient is examined at the bedside. She denies headaches today. Sleep adequate and appetite is preserved. She had a bowel movement today. Her O2 requirement has increased to 15 liters again. Due to persistent hypotension, she was started on non rebreather. She is anxious at the bedside and asking when is this ging to end? . Review of Systems Review of Systems: All systems reviewed & are unremarkable except as noted in HPI and below Constitutional: Constitutional: Reports as per HPI, Reports no additional constitutional complaints, Denies chills and Reports headache(s) Eyes: Eyes: Reports as per HPI and Reports no additional eye complaints ENT: Reports system reviewed and no additional comp
[2021-07-27 15:47] LABS: Basophils Percent Auto 0.2 % (0.2-1.2); Immature Granulocyte Absolute 0.11 K/mm3 (0.00-0.031); Immature Granulocyte Percent A 0.9 % (0-0.5); Lymphocytes Absolute Auto 0.64 K/mm3 (0.9-3.2); Lymphocytes Percent Auto 5.1 % (18.3-44.2); Mean Corpuscular HGB Conc 34.1 g/dl (32-36); Mean Corpuscular Hemoglobin 30.8 pg (26-34); Mean Corpuscular Volume 90.1 fl (80-100); Mean Platelet Volume 9.2 fl (7.4-10.4); Monocytes Absolute Auto 0.5 K/mm3 (0.1-0.6); Monocytes Percent Auto 3.9 % (2.6-8.5); Neutrophils Absolute Auto 11.3 K/mm3 (1.3-6.7); Neutrophils Percent Auto 89.9 % (45.5-73.1); Platelet Count Result 432 k/mm3 (150-375); Red Blood Count 4.55 M/mm3 (4.2-5.4); Red Cell Distribution Width 12.9 % (11.5-14.5); White Blood Count 12.6 K/mm3 (4.5-10.0)
[2021-07-27 15:53] LABS: Alanine Aminotransferase 80 U/L (4-35); Aspartate Amino Transferase 59 U/L (14-36); Estimated CRCL calculation 75 ml/min; Estimated Glomerular Filt Rate > 60
--- NOTE | 2021-07-27 16:46 | PC.NURSE ---
This patient, Nidia Levine, was transferred to IMU 209 on 07/27/21 at 1625. Personal belongings sent with patient. Report given to MIKO Bland. Appropriate documentation sent with patient.
[2021-07-27] MEDS: BARICITINIB 2 MG TABLET 4 MG PO (16:54)
--- NOTE | 2021-07-27 17:30 | PC.NURSE ---
This patient, Nidia Levine, was received from [[phone] ] on 07/27/21 at 4905. Patient/family oriented to unit policies and routines. Report received from Alicia Rincon RN @[phone]
[2021-07-27] MEDS: REMDESIVIR 100 MG/NS 250 ML 100 MG/250 ML BAG 250 MG IVPB (20:06)
[2021-07-27] MEDS: BENZONATATE 100 MG CAPSULE PO (20:06)
[2021-07-28] VITALS (33 sets, daily range): BP systolic 94–177; BP diastolic 60–113; PULSE 70–124; RESP 20–33; TEMP 36–36.6; O2SAT 90–97
[2021-07-28] MEDS: ALBUTEROL SULFATE (*SP) INHALER 4 PUFF INHALATION ×2 (02:16→08:40)
[2021-07-28 05:38] LABS: Basophils Percent Auto 0.1 % (0.2-1.2); Hematocrit 40.1 % (37.0-47.0); Hemoglobin 13.7 g/dL (12.0-15.0); Immature Granulocyte Absolute 0.14 K/mm3 (0.00-0.031); Lymphocytes Absolute Auto 1.77 K/mm3 (0.9-3.2); Lymphocytes Percent Auto 12.3 % (18.3-44.2); Mean Corpuscular HGB Conc 34.2 g/dl (32-36); Mean Corpuscular Volume 90.7 fl (80-100); Mean Platelet Volume 9.5 fl (7.4-10.4); Monocytes Absolute Auto 0.7 K/mm3 (0.1-0.6); Monocytes Percent Auto 4.8 % (2.6-8.5); Neutrophils Absolute Auto 11.8 K/mm3 (1.3-6.7); Neutrophils Percent Auto 81.8 % (45.5-73.1); Platelet Count Result 433 k/mm3 (150-375); Red Blood Count 4.42 M/mm3 (4.2-5.4); Red Cell Distribution Width 12.7 % (11.5-14.5); White Blood Count 14.4 K/mm3 (4.5-10.0)
[2021-07-28 05:58] LABS: Alanine Aminotransferase 70 U/L (4-35); Albumin Level 3.6 g/dL (3.5-5.1); Alkaline Phosphatase 155 U/L (38-126); Anion Gap 10 mmol/L (8-16); Aspartate Amino Transferase 37 U/L (14-36); Bilirubin,Total 0.8 mg/dL (0.2-1.3); Blood Urea Nitrogen 23 mg/dL (7-17); Calcium 9.1 mg/dL (8.4-10.2); Carbon Dioxide 24 mmol/L (22-30); Chloride 100 mmol/L (98-107); Estimated CRCL calculation 88 ml/min; Estimated Glomerular Filt Rate > 60; Glucose 100 mg/dL (65-110); Magnesium 2.1 mg/dL (1.6-2.3); Potassium 3.8 mmol/L (3.4-5.0); Sodium 134 mmol/L (137-145)
[2021-07-28] MEDS: ENOXAPARIN 40 MG/0.4 ML SYRINGE SUB-Q (08:15)
[2021-07-28] MEDS: TRIAMTERENE 37.5 MG/HCTZ 25 MG (MAXZIDE) TABLET 1 TAB PO (08:15)
[2021-07-28] MEDS: BARICITINIB 2 MG TABLET 4 MG PO (08:15)
[2021-07-28] MEDS: carvediloL 12.5 MG TABLET PO ×2 (08:15→20:05)
[2021-07-28 08:27] LABS: Lactate Dehydrogenase 879 U/L (313-618)
[2021-07-28 08:31] LABS: Alveolar/Arterial O2 Gradient 627.8 mmHg; Base Excess ABG 1.4 mEq/l (+/-2.0); Fractional Inspired Oxygen 100 %; HCO3 ABG 22.6 mEq/l (22.0-26.0); Oxygen Content ABG 17.9 %vol (16.0-22.0); Oxygen Saturation ABG 93.5 % (95.0-100.0); Oxyhemoglobin 90.2 % THb (90.0-100.0); PO2 ABG 58.2 mmHg (80.0-100.0); PO2 FiO2 Ratio Arterial Blood 0.58 %; Total Hemoglobin 14.1 g/dL (12.0-18.0)
[2021-07-28 08:32] LABS: pH ABG 7.541 (7.350-7.450)
[2021-07-28 08:33] LABS: Device NON-REBREATHER MASK; Modified Allen's Test Pass; Site Drawn LEFT RADIAL
--- NOTE | 2021-07-28 10:06 | PM.IMPN ---
Progress Note: A&P Assessment and Plan (1) Acute hypoxemic respiratory failure: Code(s): J96.01 - Acute respiratory failure with hypoxia Status: Acute Assessment and Plan: Worsening acute respiratory failure with hypoxia secondary to COVID-19 pneumonia; patient cannot tolerate air avoid and was started on BiPAP. ICU consulted. ABG reviewed. Patient is hypoxemic. At the time she remains stable hemodynamically. She is tachypneic and anxious. She had been previously diagnosed in the outpatient setting and had already received immunomodulator therapy as an outpatient. Patient appropriately started on Rocephin and doxycycline and receive a single dose of Solu-Medrol in the ED. currently patient started on a COVID protocol with Decadron, baricitinib and Remdesivir. Patient started on high flow nasal therapy with FiO2 90%. Continue schedule albuterol inhalers. Will monitor serial inflammatory markers. Ferritin is elevated at 500. Mild elevation of LDH at 769. PAtient is a full code and agrees to intubation if needed. (2) Pneumonia due to COVID-19 virus: Code(s): U07.1 - COVID-19; J12.82 - Pneumonia due to coronavirus disease 2018 Status: Acute Assessment and Plan: As above. (3) Transaminitis: Code(s): R74.01 - Elevation of levels of liver transaminase levels Status: Acute Assessment and Plan: Marginal elevation of liver function tests. Currently asymptomatic. Continue to monitor. (4) GERD (gastroesophageal reflux disease): Code(s): K21.9 - Gastro-esophageal reflux disease without esophagitis Status: Acute Assessment and Plan: Currently asymptomatic. (5) Cluster headache syndrome: Qualifiers: Headache chronicity pattern: chronic headache Intractability: intractable Qualified Code(s): G44.021 - Chronic cluster headache, intractable Code(s): G44.009 - Cluster headache syndrome, unspecified, not intractable Status: Acute Assessment and Plan: Currently asymptomatic. Tylenol as needed. (6) Hypertension: Code(s): I10 - Essential (primary) hypertension Status: Acute Assessment and Plan: HT is well controlled on triamterene /HCTZ and carvedilol with BP in the 1124/61-143/66 range. Additional Plan Patient has acute hypoxic respiratory failure due to COVID 19 pneumonia. The patient may have some component of underlying lung disease that she (not know about given CT findings. The patient has already received immune modulator therapy as outpatient. The patient received IV Solu-Medrol and 1 dose of Rocephin and doxycycline in the ER. Will hold off on any additional antibiotic therapy as the patient clearly has pneumonia due to COVID. Will change the patient to Decadron and will add Remdesivir. The patient does have some transaminitis but still falls within limits that her acceptable for Remdesivir use. Will check serial inflammatory markers and hepatic enzymes. The patient will be placed on scheduled albuterol inhalers. He Subjective Date/time seen: Unvaccinated 66-year-old female with past medical history of cluster headaches and hypertension who presented to the ER with increased shortness of breath associated with previously diagnosed COVID infection. Currently on remdesivir, baricitinib and IV steroids. Currently patient in acute respiratory distress, not tolerating the Airvo; she had to be started on BiPAP. Pulmonary and intensive care unit consult placed. 07/28/21 10:06 S: Patient is examined at the bedside. She is very anxious, distressed. I cannot breathe . Review of Systems Review of Systems: All systems reviewed & are unremarkable except as noted in HPI and below Constitutional: Constitutional: Reports as per HPI, Reports fatigue, Reports lethargy and Reports weakness Eyes: Eyes: Reports as per HPI ENT: Reports as per HPI Cardiovascular: Cardiovascular: Reports as per HPI Respiratory: Respira
--- NOTE | 2021-07-28 11:18 | PM.CNPUL ---
Assessment and Plan Assessment and plan (1) Pneumonia due to COVID-19 virus: Code(s): U07.1 - COVID-19; J12.82 - Pneumonia due to coronavirus disease 2019 Status: Acute Assessment and Plan: Patient tested positive for COVID-19 on 07/17 and started on remdesivir, dexamethasone on 07/24 and baricitinib on 07/27 when required high flow oxygen. Influenza swab negative on 07/17. - Remdesivir for 10 days unless he should recover and tolerate room air with rest, ambulation and while sleeping. - Dexamethasone 6 mg IV for 10 days - Continuous pulse oximetry - Prone positioning as tolerated. - Avoid any fluid overload. - Blood cultures negative 07/24 and no evidence of bacterial infection - Albuterol inhaler 2 puffs Q 4 for now, no wheezes. Keep saturations are 90-94% and now requiring BiPAP using the AVAPS mode at 100% FIO2. I discussed the COVID pneumonia with the patient and explained that she has worsening oxygenation and if she does not improve with the BiPAP she would require intubation. The patient understands this and wishes to be full code. I did discuss the case with the hospitalist and presiding steward aware. (2) Acute hypoxemic respiratory failure: Code(s): J96.01 - Acute respiratory failure with hypoxia Status: Acute Assessment and Plan: Etiology of hypoxic respiratory failure is COVID pneumonia. Once stabilizes on BiPAP will check echocardiogram. 07/24 Admit 10:40 2 L nasal cannula sats 88%. ABG on 3 L NC 7.51 /29/49. 07/24 21:00 10 L nasal cannula with sats 90%. 07/25 08:27 13 L nasal cannula with sats 90%. 07/26 08:27 15 L nasal cannula plus 10 L NRB with sats 90%. 07/27 08:30 15 L nasal cannula plus 12 L NRB with sats 95%. 07/27 16:02 Airvo 60 L 90% plus 15 L NRB with sats 91% 07/28 09:00 BiPAP AVAPS mode at a rate of 18, tidal volume 450, expiratory pressure 8, inspiratory pressure minimum 9, inspiratory pressure maximum 30, inspiratory time 1.2 seconds, rise 5 which is are slowest and 100% with saturations 94% Discussed with Dr. Small. Will follow with you. History of Present Illness History of Present Illness Consult date: 07/28/21 Requesting physician: Camila Small MD Reason for consult: hypoxemia and other (COVID pneumonia) Chief complaint: Acute Hypoxic Respiratory Failure, COVID Narrative: 07/28/2021: This is a new Pulmonary consult for COVID pneumonia with hypoxemic respiratory failure. 66-year-old woman with a history of cluster headaches on p.r.n. oxygen at home, hypertension who was exposed to a granddaughter at [facility] who tested positive for COVID and her is also positive for COVID. Patient tested positive for COVID on 07/17/2021 and then had hypoxemia at home and self-treated her hypoxemia with with supplemental oxygen up to 8 L. Patient continued with dyspnea on exertion and presented to the emergency department on 07/24 with hypoxemia with saturations 88% on 2 L nasal cannula. Patient had a blood gas on 3 L nasal cannula the pH of 7.5 09/18/2048. Patient was increased to 10 L high-flow nasal cannula with saturations 90%. Patient's admission white blood cell count was 6.5, her CRP was 8.0 and her creatinine was 0.6. Patient was started on REM test severe and dexamethasone on 07/24/2021. On 07/25 patient required 13 L nasal cannula. On 07/26 patient required 15 L nasal cannula with 10 L non-rebreather over this. On 07/27 patient required high-flow nasal cannula oxygen at 60 L and 90% with 15 L non-rebreather overlying this with saturations 91%. On 07/28 patient required BiPAP rate of 14, pressure is 10/8 and 100%. 07/28 Patient was wearing the BiPAP when I spoke with her this morning. She was alert and communicative and able to follow commands. Patient stated that she had severe rest shortness of breath and was overall feeling tired. She said the BiPAP was uncomfortable and I changed her to noninvasive ventilation mode with AVAPS mode at a rate of 18, tidal volume 4
--- NOTE | 2021-07-28 11:54 | WPDPROCEDUR ---
Procedures Intubation Intubation Date: 07/28/21 Intubation Time: 11:35 A pre-procedural Time-Out was completed immediately before starting the procedure and confirmed: Patient Identification, Site, Procedure, Patient Position and the Availability of Requisite Equipment: Yes Sedative: etomidate Paralytic: rocuronium Laryngoscope: fiber optic video scope Assist device used: fiber optic device ET tube size: 7.5 Tube secured depth (cm): 24 Tube secured location: lips Tube placement confirmation: visualized tube passing through cords, equal breath sounds bilaterally, no breath sounds over epigastrium and confirmation by capnometry Patient tolerated procedure: well Intubation complications: none Additional comments: Vocal cords were slightly anterior, had to manipulate the laryngoscopy blade to visualize the vocal cords.
--- NOTE | 2021-07-28 11:58 | WPDCNINT ---
Assessment and Plan Assessment and plan (1) Acute hypoxemic respiratory failure: Code(s): J96.01 - Acute respiratory failure with hypoxia Status: Acute Assessment and Plan: Acute hypoxic respiratory failure, patient has been tested positive for COVID on 07/17/2021. Patient received Regen-Cov on 07/22/2021. Patient is unvaccinated -patient has been using oxygen up to 8 L at home before she presented the ED with increasing shortness of breath, fevers, nonproductive cough. -in the intermediate Unit patient had increasing oxygen requirements, was placed on BiPAP this morning on 100% FiO2, she was dyspneic, tachypneic, shallow breathing. -intubated the patient on 07/28/2021 -she is currently on CMV mode of ventilation, peep 10 and 100% FiO2, will obtain ABGs post intubation and make ventilator changes as needed -chest x-ray and CTA reviewed -continue bronchodilators, add Pulmicort -sedation with fentanyl Versed infusion (2) Pneumonia due to COVID-19 virus: Code(s): U07.1 - COVID-19; J12.82 - Pneumonia due to coronavirus disease 2019 Status: Acute Assessment and Plan: COVID pneumonia, patient was tested positive on 07/17/2021 -continue remdesivir which was initiated on 07/25/2021 -continue dexamethasone and Baricitinib -continue droplet, airborne, contact isolation/precautions (3) GERD (gastroesophageal reflux disease): Code(s): K21.9 - Gastro-esophageal reflux disease without esophagitis Status: Acute Assessment and Plan: Will start Protonix (4) Hypertension: Code(s): I10 - Essential (primary) hypertension Status: Acute Assessment and Plan: Continue carvedilol low-dose for now (5) DVT prophylaxis: Code(s): Z29.9 - Encounter for prophylactic measures, unspecified Status: Acute Assessment and Plan: Lovenox Additional Plan Discussed with Severino and updated with patient's condition and plan of care. I answered all questions Code status: Full code Critical care time spent: 47 minutes Code status: Critical care time spent: This dictation may have been done utilizing a voice recognition system. Attempts have been made to correct errors. However, there may be uncorrected grammatical, spelling, and recognition errors present. Due to a high probability of clinically significant, life threatening deterioration, the patient required my highest level of preparedness to intervene emergently and I personally spent this critical care time directly and personally managing the patient. This critical care time included obtaining a history; examining the patient; pulse oximetry; ordering and review of studies; arranging urgent treatment with development of a management plan; evaluation of patient's response to treatment; frequent reassessment; and discussions with other providers. It was exclusive of separately billable procedures and treating other patients and teaching time. Please see Assessment and Plan section and the rest of the note for further information on patient assessment and treatment Fire Technician Consult Note Consult date: 07/28/21 Time Seen: 11:45 Reason for consult: Acute hypoxic respiratory failure, COVID HPI: Nidia Levine is a 66 year old female with significant past medical history of GERD and cluster headaches presented the ED on 07/24/2021 with complains of shortness of breath. She had been tested positive for COVID on 07/17/2021 he has been feeling unwell infusions for development of nonproductive cough and shortness of breath. She was hypoxic at home when she checked a pulse ox, placed herself on 8 L oxygen at home with improvement in O2 sats. He received regen-COV on 07/22/2021. Prior to admission O2 sats were low and she was having significant dyspnea along with fevers of a T-max of 102?. Nonproductive cough. Admit to the intermediate Unit and was placed on Airvo with increasing oxygen requirements and then BiPAP earlier this mo
[2021-07-28] MEDS: SODIUM CHLORIDE 0.9% IV 1,000 ML 30 ML (12:44)
[2021-07-28] MEDS: RAPID SEQUENCE INTUBATION KIT 1 EACH (12:44)
[2021-07-28] MEDS: FENTANYL 2,500MCG/NS250ML(*CRX 2,500 MCG/250 ML BAG 100 MCG (12:44)
[2021-07-28] MEDS: MIDAZOLAM 100MG/NS 100ML(*CRX) 100 MG/100 ML BAG (12:45)
[2021-07-28 12:50] LABS: Alveolar/Arterial O2 Gradient 558.7 mmHg; Base Excess ABG -4.1 mEq/l (+/-2.0); Fractional Inspired Oxygen 100 %; HCO3 ABG 23.2 mEq/l (22.0-26.0); Oxygen Content ABG 20.4 %vol (16.0-22.0); Oxygen Saturation ABG 97.1 % (95.0-100.0); Oxyhemoglobin 95.8 % THb (90.0-100.0); PCO2 ABG 50.4 mmHg (35.0-45.0); PO2 ABG 103.9 mmHg (80.0-100.0); PO2 FiO2 Ratio Arterial Blood 1.04 %; Total Hemoglobin 15.1 g/dL (12.0-18.0)
[2021-07-28 12:52] LABS: Device VENTILATOR; Modified Allen's Test Pass; Site Drawn RIGHT RADIAL
[2021-07-28 12:53] LABS: Arterial Blood Gas PEEP 10 cmH2O; Arterial Blood Gas Tidal Volume 330 ml; Arterial Blood Gas Vent Mode CMV; Arterial Blood Gas Ventilator rate 24 /MIN
[2021-07-28] MEDS: MIDAZOLAM 100MG/NS 100ML(*CRX) 100 MG/100 ML BAG IV CONT (13:00)
[2021-07-28] MEDS: PANTOPRAZOLE SODIUM IV 40 MG VIAL IV PUSH (13:40)
[2021-07-28] MEDS: FENTANYL 2,500MCG/NS250ML(*CRX 2,500 MCG/250 ML BAG 10 MCG IV CONT (13:42)
[2021-07-28] MEDS: IPRATROPIUM BR 0.02% INH SOLN 0.5 MG/2.5 ML VIAL INHALATION ×2 (15:03→21:58)
[2021-07-28] MEDS: LEVALBUTEROL NEB 1.25 MG/3 ML 0.63 MG INHALATION ×2 (15:03→21:59)
[2021-07-28] MEDS: MINERAL OIL/WHITE PETROLATUM OINTMENT 1 APPLIC EACH EYE (20:05)
[2021-07-28] MEDS: REMDESIVIR 100 MG/NS 250 ML 100 MG/250 ML BAG 250 MG IVPB (21:51)
[2021-07-28] MEDS: BUDESONIDE RESPULE NEB 0.5 MG/2 ML AMP INHALATION (21:59)
[2021-07-29] VITALS (38 sets, daily range): BP systolic 85–124; BP diastolic 49–74; PULSE 68–93; RESP 26–30; TEMP 35.9–37.1; O2SAT 91–100; BMI 27.1
--- NOTE | 2021-07-29 | ECHO_ITS ---
Patient Info Name: Nidia Levine Age: 66 years : 1955 Gender: Female Ht: 64 in Wt: 161 lbs BSA: 1.83 m2 HR: 77 bpm BP: 100 / 72 mmHg Heart Rhythm: Sinus Rhythm Technical Quality: Fair Exam Date: 07/29/2021 10:10 AM Exam Location: [facility] Pulmonary Patient Status: Inpatient Admit Date: 07/24/2021 Staff Ordering Physician: Jonnie Wilks MD [employer] Advisor: Anupama Holloway RDCS Attending Provider: Luis Duque MD Referring Physician: Efe RASHEED; Exam Type: CA echo doppler color flow Study Info Indications - HYPOXIA Complete two-dimensional, color flow and Doppler transthoracic echocardiogram is performed. Summary 1. Complete two-dimensional, color flow and Doppler transthoracic echocardiogram is performed. 2. The apical septum, and apical lateral wall are akinetic. 3. The apical inferior wall, apical anterior wall, mid anterior wall, mid inferoseptal, mid anterolateral wall, mid anteroseptal, and mid inferolateral wall are hypokinetic. 4. The apical cap is dyskinetic. 5. Left ventricular chamber dimension is normal. 6. Left ventricular systolic function is mildly reduced, estimated at 40-45%. 7. There is mildly increased left ventricular wall thickness. 8. The left ventricular diastolic function is grade I diastolic dysfunction. 9. Left atrial chamber dimension is mildly enlarged. 10. There is mild tricuspid valve regurgitation. Left Ventricle Left ventricular chamber dimension is normal. Left ventricular systolic function is mildly reduced, estimated at 40-45%. There is mildly increased left ventricular wall thickness. The left ventricular diastolic function is grade I diastolic dysfunction. The apical septum, and apical lateral wall are akinetic. The apical inferior wall, apical anterior wall, mid anterior wall, mid inferoseptal, mid anterolateral wall, mid anteroseptal, and mid inferolateral wall are hypokinetic. The apical cap is dyskinetic. All other fair appear normal. Right Ventricle Right ventricular chamber dimension is normal. Right ventricular systolic function is normal. Left Atria Left atrial chamber dimension is mildly enlarged. Right Atria Right atrial chamber dimension is normal. Atrial Septum Intact interatrial septum visualized by color flow imaging. Aortic Valve The aortic valve is trileaflet. There is mild aortic valve sclerosis. There is no aortic valve stenosis. There is trace aortic valve regurgitation. Pulmonic Valve The pulmonic valve is normal. There is no pulmonic valve stenosis. There is trace pulmonic regurgitation. Mitral Valve The mitral valve has normal leaflets. There is no mitral valve stenosis. There is trace mitral valve regurgitation. Tricuspid Valve The tricuspid valve leaflets are normal. There is no significant tricuspid valve stenosis. There is mild tricuspid valve regurgitation. No pulmonary hypertension, estimated pulmonary arterial systolic pressure is 24 mmHg. Pericardium/Pleural The pericardium appears normal. There is trivial pericardial effusion. Inferior Vena Cava Normal inferior vena cava with >50% collapse upon inspiration consistent with normal right atrial pressure, 10 mmHg. Aorta The aortic root size at the sinus of Valsalva is normal. Left Ventricular Outflow Tract Name Value Normal
[2021-07-29] MEDS: IPRATROPIUM BR 0.02% INH SOLN 0.5 MG/2.5 ML VIAL INHALATION ×4 (03:02→21:43)
[2021-07-29] MEDS: LEVALBUTEROL NEB 1.25 MG/3 ML 0.63 MG INHALATION ×4 (03:03→21:43)
[2021-07-29] MEDS: FENTANYL 2,500MCG/NS250ML(*CRX 2,500 MCG/250 ML BAG 12.5 MCG IV CONT (03:41)
[2021-07-29] MEDS: MIDAZOLAM 100MG/NS 100ML(*CRX) 100 MG/100 ML BAG IV CONT (03:43)
[2021-07-29 04:44] LABS: Basophils Percent Auto 0.2 % (0.2-1.2); Hematocrit 39.6 % (37.0-47.0); Hemoglobin 13.6 g/dL (12.0-15.0); Immature Granulocyte Absolute 0.24 K/mm3 (0.00-0.031); Immature Granulocyte Percent A 1.7 % (0-0.5); Lymphocytes Absolute Auto 1.39 K/mm3 (0.9-3.2); Mean Corpuscular HGB Conc 34.3 g/dl (32-36); Mean Corpuscular Hemoglobin 31.4 pg (26-34); Mean Corpuscular Volume 91.5 fl (80-100); Mean Platelet Volume 9.3 fl (7.4-10.4); Monocytes Absolute Auto 0.9 K/mm3 (0.1-0.6); Monocytes Percent Auto 6.2 % (2.6-8.5); Neutrophils Absolute Auto 11.3 K/mm3 (1.3-6.7); Neutrophils Percent Auto 81.9 % (45.5-73.1); Platelet Count Result 418 k/mm3 (150-375); Red Blood Count 4.33 M/mm3 (4.2-5.4); Red Cell Distribution Width 12.7 % (11.5-14.5); White Blood Count 13.9 K/mm3 (4.5-10.0)
[2021-07-29 04:56] LABS: Alanine Aminotransferase 54 U/L (4-35); Albumin Level 3.3 g/dL (3.5-5.1); Alkaline Phosphatase 139 U/L (38-126); Anion Gap 10 mmol/L (8-16); Aspartate Amino Transferase 32 U/L (14-36); Bilirubin,Total 0.6 mg/dL (0.2-1.3); Blood Urea Nitrogen 33 mg/dL (7-17); Calcium 9.1 mg/dL (8.4-10.2); Carbon Dioxide 25 mmol/L (22-30); Chloride 102 mmol/L (98-107); Estimated CRCL calculation 64 ml/min; Estimated Glomerular Filt Rate > 60; Glucose 114 mg/dL (65-110); Magnesium 2.2 mg/dL (1.6-2.3); Potassium 4.4 mmol/L (3.4-5.0); Sodium 137 mmol/L (137-145)
[2021-07-29 05:41] LABS: Alveolar/Arterial O2 Gradient 527.1 mmHg; Carboxyhemoglobin 0.4 % THb (0-2.0); Fractional Inspired Oxygen 90 %; HCO3 ABG 23.9 mEq/l (22.0-26.0); Methemoglobin ABG 0.3 %THb (0-1.5); Oxygen Saturation ABG 95.9 % (95.0-100.0); Oxyhemoglobin 94.1 % THb (90.0-100.0); PCO2 ABG 36.3 mmHg (35.0-45.0); PO2 ABG 77.4 mmHg (80.0-100.0); PO2 FiO2 Ratio Arterial Blood 0.86 %; Reduced Hemoglobin 5.2 %THb (0-5.0); Total Hemoglobin 12.8 g/dL (12.0-18.0); pH ABG 7.436 (7.350-7.450)
[2021-07-29 05:42] LABS: Device VENTILATOR; Modified Allen's Test Pass; Site Drawn RIGHT RADIAL
[2021-07-29 05:43] LABS: Arterial Blood Gas PEEP 10 cmH2O; Arterial Blood Gas Tidal Volume 330 ml; Arterial Blood Gas Vent Mode CMV; Arterial Blood Gas Ventilator rate 26 /MIN
--- NOTE | 2021-07-29 08:05 | ECG_ITS ---
Measurements Intervals [place] Rate: 79 P: 61 IA: 153 QRS: 1 QRSD: 90 T: 207 QT: 418 QTc: 480 Interpretive Statements SINUS RHYTHM BORDERLINE R WAVE PROGRESSION, ANTERIOR LEADS T WAVE ABNORMALITY IN DIFFUSE LEADS- CONSIDER ISCHEMIA ABNORMAL ECG Electronically Signed On 07-29-2021 8:24:13 [employer]AMEL [employer] by Lupillo Collazo D.O.
[2021-07-29] MEDS: BUDESONIDE RESPULE NEB 0.5 MG/2 ML AMP INHALATION ×2 (08:42→21:43)
[2021-07-29] MEDS: BARICITINIB 2 MG TABLET 4 MG PO (09:11)
[2021-07-29] MEDS: carvediloL 12.5 MG TABLET PO (09:11)
[2021-07-29] MEDS: PANTOPRAZOLE SODIUM IV 40 MG VIAL IV PUSH (09:12)
[2021-07-29] MEDS: MINERAL OIL/WHITE PETROLATUM OINTMENT 1 APPLIC EACH EYE ×2 (09:12→21:27)
[2021-07-29] MEDS: ENOXAPARIN 40 MG/0.4 ML SYRINGE SUB-Q (09:12)
--- NOTE | 2021-07-29 09:50 | WPDINTPN ---
Progress Note: A&P Assessment and Plan (1) Acute hypoxemic respiratory failure: Code(s): J96.01 - Acute respiratory failure with hypoxia Status: Acute Assessment and Plan: Acute hypoxic respiratory failure, patient has been tested positive for COVID on 07/17/2021. Patient received Regen-Cov on 07/22/2021. Patient is unvaccinated -patient has been using oxygen up to 8 L at home before she presented the ED with increasing shortness of breath, fevers, nonproductive cough. -in the intermediate Unit patient had increasing oxygen requirements, was placed on BiPAP this morning on 100% FiO2, she was dyspneic, tachypneic, shallow breathing. -intubated the patient on 07/28/2021 -she is currently on CMV mode of ventilation, peep 10 and 90% FiO2. Wean FiO2 to maintain O2 sats greater than 92% -chest x-ray and ABGs reviewed -continue bronchodilators, add Pulmicort -sedation with fentanyl Versed infusion -will place patient in prone position for 16-18 hours -continue low tidal volume strategy to avoid Volu-trauma (2) Pneumonia due to COVID-19 virus: Code(s): U07.1 - COVID-19; J12.82 - Pneumonia due to coronavirus disease 2019 Status: Acute Assessment and Plan: COVID pneumonia, patient was tested positive on 07/17/2021 -continue remdesivir which was initiated on 07/25/2021 -continue dexamethasone and Baricitinib -continue droplet, airborne, contact isolation/precautions (3) GERD (gastroesophageal reflux disease): Code(s): K21.9 - Gastro-esophageal reflux disease without esophagitis Status: Acute Assessment and Plan: Continue Protonix (4) Hypertension: Code(s): I10 - Essential (primary) hypertension Status: Acute Assessment and Plan: Continue carvedilol low-dose for now (5) DVT prophylaxis: Code(s): Z29.9 - Encounter for prophylactic measures, unspecified Status: Acute Assessment and Plan: Lovenox (6) Abnormal EKG: Code(s): R94.31 - Abnormal electrocardiogram [ECG] [EKG] Status: Acute Assessment and Plan: Patient has an abdominal EKG diffuse T-wave inversion. Could be related to coronary artery disease, type 2 infarct acute respiratory and hypoxia -cardiology consulted await evaluation and recommendations -add aspirin, patient already on carvedilol Additional Plan Discussed with Severino and updated with patient's condition and plan of care. I answered all questions Code status: Full code Critical care time spent: 33 minutes This dictation may have been done utilizing a voice recognition system. Attempts have been made to correct errors. However, there may be uncorrected grammatical, spelling, and recognition errors present. Due to a high probability of clinically significant, life threatening deterioration, the patient required my highest level of preparedness to intervene emergently and I personally spent this critical care time directly and personally managing the patient. This critical care time included obtaining a history; examining the patient; pulse oximetry; ordering and review of studies; arranging urgent treatment with development of a management plan; evaluation of patient's response to treatment; frequent reassessment; and discussions with other providers. It was exclusive of separately billable procedures and treating other patients and teaching time. Please see Assessment and Plan section and the rest of the note for further information on patient assessment and treatment Subjective Date/time seen: 07/29/21 09:50 Interval history: Reason for consult: Acute hypoxic respiratory failure, COVID -intubated on 07/28/2021 07/29/2021: Patient seen examined this morning in the ICU, remains intubated on CMV mode of ventilation, peep of 10 and 90% FiO2. Sedated with fentanyl Versed infusion. Patient opens her eyes to name and follows simple commands. Patient is afebrile, hemodynamically stable, urine output has been a
--- NOTE | 2021-07-29 09:50 | PM.PNPUL ---
Progress Note: A&P Assessment and Plan (1) Pneumonia due to COVID-19 virus: Code(s): U07.1 - COVID-19; J12.82 - Pneumonia due to coronavirus disease 2019 Status: Acute Assessment and Plan: 07/28 Patient tested positive for COVID-19 on 07/17 and started on remdesivir, dexamethasone on 07/24 and baricitinib on 07/27 when required high flow oxygen. Influenza swab negative on 07/17. failed BiPAP and intubated on 07/28 - Remdesivir for 10 days unless he should recover and tolerate room air with rest, ambulation and while sleeping. - Dexamethasone 6 mg IV for 10 days - Continuous pulse oximetry - Prone positioning as tolerated. - Avoid any fluid overload. - Blood cultures negative 07/24 and no evidence of bacterial infection - Albuterol inhaler 2 puffs Q 4 for now, no wheezes. Keep saturations are 90-94% and now requiring BiPAP using the AVAPS mode at 100% FIO2. I discussed the COVID pneumonia with the patient and explained that she has worsening oxygenation and if she does not improve with the BiPAP she would require intubation. The patient understands this and wishes to be full code. I did discuss the case with the hospitalist and broommaker aware. 07/29 patient remains intubated and sedated on CMV with a rate of 26, tidal volume 330, 90% FiO2, 10 of peep with peak airway pressure is 22% and saturations 90%. ventilator management per broommaker. Her ABG on the settings 7.46/36/77. Chest x-ray shows continued diffuse interstitial infiltrates bilaterally with no change. Once patient is adequately sedated the plan is for prone positioning later today. I recommend a total of 10 days remdesivir and dexamethasone given her illness severity. (2) Acute hypoxemic respiratory failure: Code(s): J96.01 - Acute respiratory failure with hypoxia Status: Acute Assessment and Plan: Etiology of hypoxic respiratory failure is COVID pneumonia. Once stabilizes on BiPAP will check echocardiogram. 07/24 Admit 10:40 2 L nasal cannula sats 88%. ABG on 3 L NC 7.51 /29/49. 07/24 21:00 10 L nasal cannula with sats 90%. 07/25 08:27 13 L nasal cannula with sats 90%. 07/26 08:27 15 L nasal cannula plus 10 L NRB with sats 90%. 07/27 08:30 15 L nasal cannula plus 12 L NRB with sats 95%. 07/27 16:02 Airvo 60 L 90% plus 15 L NRB with sats 91% 07/28 09:00 BiPAP AVAPS mode at a rate of 18, tidal volume 450, expiratory pressure 8, inspiratory pressure minimum 9, inspiratory pressure maximum 30, inspiratory time 1.2 seconds, rise 5 which is are slowest and 100% with saturations 94%. Intubated later in day after fdailed BiPAP. 07/29 08:00 CMV with a rate of 26, tidal volume 330, 90% FiO2, 10 of peep, sats 90%, plan to prone later today. Discussed with Dr. Orr. Will sign off, please call for any questions. Subjective Date/time seen: 07/29/21 09:50 Interval history: 07/28/2021: This is a new Pulmonary consult for COVID pneumonia with hypoxemic respiratory failure. 66-year-old woman with a history of cluster headaches on p.r.n. oxygen at home, hypertension who was exposed to a granddaughter at [facility] who tested positive for COVID and her is also positive for COVID. Patient tested positive for COVID on 07/17/2021 and then had hypoxemia at home and self-treated her hypoxemia with with supplemental oxygen up to 8 L. Patient continued with dyspnea on exertion and presented to the emergency department on 07/24 with hypoxemia with saturations 88% on 2 L nasal cannula. Patient had a blood gas on 3 L nasal cannula the pH of 7.5 09/18/2048. Patient was increased to 10 L high-flow nasal cannula with saturations 90%. Patient's admission white blood cell count was 6.5, her CRP was 8.0 and her creatinine was 0.6. Patient was started on REM test severe and dexamethasone on 07/24/2021. On 07/25 patient required 13 L nasal cannula. On 07/26 patient required 15 L nasal cannula with 10 L non-rebreather over this. On 07/27 patient require
[2021-07-29 11:28] LABS: Alanine Aminotransferase 51 U/L (4-35); Estimated CRCL calculation 64 ml/min; Estimated Glomerular Filt Rate > 60
[2021-07-29] MEDS: CISATRACURIUM BESYLATE 20 MG/10 ML VIAL 10.7 MG IV PUSH (11:38)
[2021-07-29] MEDS: CISATRACURIUM BESYLATE 200 MG in DEXTROSE 5% 80 ML 6.44 ML IV CONT (11:39)
[2021-07-29 11:48] LABS: Prothrombin Time 13.5 Seconds (11.1-14.7)
--- NOTE | 2021-07-29 12:52 | PM.CNCAR ---
Assessment and Plan Assessment and plan (1) Abnormal EKG: Code(s): R94.31 - Abnormal electrocardiogram [ECG] [EKG] Status: Acute Assessment and Plan: She does have abnormal EKG and EKG changes may be related to underlying ischemia. Can also be seen with underlying COVID infection, hypotension. 2D echocardiogram with Doppler has been ordered will be reviewed. I will check a troponin level. Conservative treatment for now as there are no ST segment elevations present. Aspirin 81 mg p.o. daily. If troponins are elevated, will change her DVT dose enoxaparin to full dose 1 milligram/kg subQ q.12 hours. Carvedilol should be continued as well as long as her blood pressure will allow. Hold triamterene hydrochlorothiazide. Repeat EKG now (2) Hypertension: Code(s): I10 - Essential (primary) hypertension Status: Acute Assessment and Plan: Currently hypotensive. (3) Pneumonia due to COVID-19 virus: Code(s): U07.1 - COVID-19; J12.82 - Pneumonia due to coronavirus disease 2018 Status: Acute Assessment and Plan: Intubated (4) Acute hypoxemic respiratory failure: Code(s): J96.01 - Acute respiratory failure with hypoxia Status: Acute Assessment and Plan: Intubated History of Present Illness History of Present Illness Consult date/time: 07/29/21 12:52 Requesting physician: Felix Orr MD Consult reason: Other (Abnormal EKG) Reason For Visit: Acute Hypoxic Respiratory Failure, COVID Narrative: Date of service 07/29/2021 Requesting provider: Dr. Orr Reason for consultation: Abnormal EKG History: Patient is a 66-year-old female who will has been diagnosed with COVID. See history and physical for full details regarding her COVID infection but she was diagnosed because of worsening shortness of breath. She went to urgent care where she was tested. She tested positive. She was triaged at home. She sometimes uses home oxygen for cluster headache treatment. Whenever she was satting low, she put herself on home O2. Eventually her dyspnea became significant and she came to the hospital. She has continued to decline and was transferred to the ICU yesterday because of worsening respiratory distress. She has been subsequently intubated. Initial EKG shows some inferior T-wave abnormalities. The white metal corrosion proofer showed some EKG changes an EKG was performed showing deep lateral T-wave abnormalities, consider ischemia. Cardiology consultation was therefore requested. She is currently intubated and sedated no other history can be obtained at this point. She reportedly has prior no cardiac issues however. No baseline shortness of breath, chest pain. Review of Systems Review of Systems: All systems reviewed & are unremarkable except as noted in HPI and below Constitutional: Constitutional: Reports body ache(s) Eyes: Eyes: Denies blurry vision ENT: Reports Normal hearing present Cardiovascular: Cardiovascular: Denies chest pain Respiratory: Respiratory: Reports cough and Reports dyspnea Gastrointestinal: Gastrointestinal: Reports diarrhea Genitourinary: Genitourinary: Denies flank pain Musculoskeletal: Musculoskeletal: Denies neck pain Integumentary/Breasts: Skin/Breast: Denies dry skin Neurologic: Reports headache(s) Psychiatric: Psychiatric: Denies anxiety Endocrine: Endocrine: Denies excessive sweating Hematologic/Lymphatic: Hematologic/Lymphatic: Denies easy bleeding Allergic/Immunologic: Allergic/Immunologic: Denies lip swelling PMFSH Past Medical History Medical History Cluster headaches Essential (primary) hypertension GERD (gastroesophageal reflux disease) Hypertension Lumbar back pain Surgical History Surgical History H/O: hysterectomy History of medial meniscus repair of left knee History of medial meniscus
--- NOTE | 2021-07-29 13:03 | ECG_ITS ---
Measurements Intervals [place] Rate: 78 P: 59 RI: 153 QRS: 7 QRSD: 88 T: 209 QT: 457 QTc: 522 Interpretive Statements SINUS RHYTHM BORDERLINE R WAVE PROGRESSION, ANTERIOR LEADS ST-T WAVE ABNORMALITY IN DIFFUSE LEADS- CONSIDER ISCHEMIA ABNORMAL ECG Electronically Signed On 07-29-2021 16:52:43 UNDER SHERIFF by Lupillo Collazo D.O.
[2021-07-29 13:39] LABS: Troponin I 0.656 ng/mL (0.000-0.034)
[2021-07-29] MEDS: ASPIRIN 81 MG CHEWABLE TABLET PO (15:15)
[2021-07-29 15:54] LABS: Troponin I 0.385 ng/mL (0.000-0.034)
[2021-07-29] MEDS: ENOXAPARIN 80 MG/0.8 ML SYRINGE 70 MG SUB-Q (21:25)
[2021-07-29] MEDS: FENTANYL 2,500MCG/NS250ML(*CRX 2,500 MCG/250 ML BAG 15 MCG IV CONT (21:26)
[2021-07-29] MEDS: REMDESIVIR 100 MG/NS 250 ML 100 MG/250 ML BAG 250 MG IVPB (21:28)
[2021-07-30] VITALS (31 sets, daily range): BP systolic 95–133; BP diastolic 60–72; PULSE 84–122; RESP 26–114; TEMP 35.5–36.8; O2SAT 90–100
[2021-07-30] MEDS: CISATRACURIUM BESYLATE 200 MG in DEXTROSE 5% 80 ML 8.59 ML IV CONT (02:04)
[2021-07-30] MEDS: MIDAZOLAM 100MG/NS 100ML(*CRX) 100 MG/100 ML BAG IV CONT (02:06)
[2021-07-30] MEDS: LEVALBUTEROL NEB 1.25 MG/3 ML 0.63 MG INHALATION ×4 (02:50→23:38)
[2021-07-30] MEDS: IPRATROPIUM BR 0.02% INH SOLN 0.5 MG/2.5 ML VIAL INHALATION ×4 (02:50→23:38)
[2021-07-30 04:56] LABS: Alveolar/Arterial O2 Gradient 379.3 mmHg; Base Excess ABG 0.4 mEq/l (+/-2.0); Carboxyhemoglobin 0.2 % THb (0-2.0); Fractional Inspired Oxygen 75 %; HCO3 ABG 27.9 mEq/l (22.0-26.0); Oxygen Content ABG 19.5 %vol (16.0-22.0); Oxygen Saturation ABG 96.5 % (95.0-100.0); Oxyhemoglobin 95.9 % THb (90.0-100.0); PCO2 ABG 56.9 mmHg (35.0-45.0); PO2 FiO2 Ratio Arterial Blood 1.27 %; Reduced Hemoglobin 3.9 %THb (0-5.0); Total Hemoglobin 14.4 g/dL (12.0-18.0); pH ABG 7.308 (7.350-7.450)
[2021-07-30 04:58] LABS: Device VENTILATOR; Modified Allen's Test Pass; Site Drawn LEFT RADIAL
[2021-07-30 04:59] LABS: Arterial Blood Gas PEEP 10 cmH2O; Arterial Blood Gas Tidal Volume 330 ml; Arterial Blood Gas Vent Mode CMV; Arterial Blood Gas Ventilator rate 26 /MIN; Basophils Absolute Auto 0.1 K/mm3 (0.0-0.1); Basophils Percent Auto 0.3 % (0.2-1.2); Hematocrit 43.5 % (37.0-47.0); Hemoglobin 14.3 g/dL (12.0-15.0); Immature Granulocyte Absolute 0.24 K/mm3 (0.00-0.031); Immature Granulocyte Percent A 0.9 % (0-0.5); Lymphocytes Absolute Auto 0.57 K/mm3 (0.9-3.2); Lymphocytes Percent Auto 2.1 % (18.3-44.2); Mean Corpuscular HGB Conc 32.9 g/dl (32-36); Mean Corpuscular Volume 94.2 fl (80-100); Mean Platelet Volume 9.4 fl (7.4-10.4); Monocytes Absolute Auto 1.5 K/mm3 (0.1-0.6); Monocytes Percent Auto 5.7 % (2.6-8.5); Neutrophils Absolute Auto 24.5 K/mm3 (1.3-6.7); Platelet Count Result 454 k/mm3 (150-375); Red Blood Count 4.62 M/mm3 (4.2-5.4); Red Cell Distribution Width 12.6 % (11.5-14.5); White Blood Count 26.9 K/mm3 (4.5-10.0)
[2021-07-30 05:13] LABS: INR 1.1; Prothrombin Time 14.3 Seconds (11.1-14.7)
[2021-07-30 05:15] LABS: Alanine Aminotransferase 49 U/L (4-35); Albumin Level 3.3 g/dL (3.5-5.1); Alkaline Phosphatase 138 U/L (38-126); Anion Gap 10 mmol/L (8-16); Aspartate Amino Transferase 38 U/L (14-36); Bilirubin,Total 0.6 mg/dL (0.2-1.3); Blood Urea Nitrogen 33 mg/dL (7-17); Calcium 8.9 mg/dL (8.4-10.2); Carbon Dioxide 26 mmol/L (22-30); Chloride 100 mmol/L (98-107); Estimated CRCL calculation 106 ml/min; Estimated Glomerular Filt Rate > 60; Glucose 148 mg/dL (65-110); Magnesium 2.1 mg/dL (1.6-2.3); Phosphorus 3.5 mg/dL (2.5-4.5); Potassium 4.2 mmol/L (3.4-5.0); Sodium 136 mmol/L (137-145)
[2021-07-30] MEDS: BUDESONIDE RESPULE NEB 0.5 MG/2 ML AMP INHALATION ×2 (08:35→23:38)
[2021-07-30] MEDS: BARICITINIB 2 MG TABLET 4 MG PO (08:43)
[2021-07-30] MEDS: PANTOPRAZOLE SODIUM IV 40 MG VIAL IV PUSH (08:44)
[2021-07-30] MEDS: ENOXAPARIN 80 MG/0.8 ML SYRINGE 70 MG SUB-Q ×2 (08:45→20:14)
[2021-07-30] MEDS: MINERAL OIL/WHITE PETROLATUM OINTMENT 1 APPLIC EACH EYE ×2 (08:46→20:14)
[2021-07-30] MEDS: ASPIRIN 81 MG CHEWABLE TABLET PO (10:59)
--- NOTE | 2021-07-30 11:46 | PC.NURSE ---
Patient placed in supine position @ 1130, VSS . Ring removed from left ring finger and taped to patients board.
--- NOTE | 2021-07-30 12:03 | PCNFU ---
Nutrition Follow-Up Complete: Inadequate Oral Intake as related to mechanical ventilation as evidenced by NPO. Goal: Meet estimated nutritional needs. Patient is progressing towards goal. We will continue current goal. Pt current nutrition is Vital AF 1.2 at 40 ml/hr over 22 hours goal rate at 55 ml/hr. Last recorded weight is 71.6 kg, no new weight to report. Bowel Motility:No BM reported. Labs Reviewed:Cr 0.74,BUN 33, Na 135, Alb 3.3 Meds Noted:Protonix, Versed, Fentanyl, Decadron, Remdesivir, Nimbex, Lovenox, Coreg Skin:WNL Additional Notes: Patient remains on mechanical vent and tube feedings of Vital AF 1.2, currently at 40 ml/hr. Goal rate of tube feedings recommended at 55 ml/hr providing 1452 kcals/91 gms protein/981 ml water. Free water flush 30 ml q 4 hours. Patient currently in supine position. Agree with diet orders. Will monitor daily in ICU rounds and reassess every Monday and Monday.
--- NOTE | 2021-07-30 12:11 | PM.PNCARD ---
Progress Note: A&P Assessment and Plan (1) Abnormal EKG: Code(s): R94.31 - Abnormal electrocardiogram [ECG] [EKG] Status: Acute Assessment and Plan: She does have abnormal EKG and EKG changes may be related to underlying ischemia but likely from underlying stress-induced cardiomyopathy. (2) Hypertension: Code(s): I10 - Essential (primary) hypertension Status: Acute Assessment and Plan: Blood pressure is more stable today. (3) Pneumonia due to COVID-19 virus: Code(s): U07.1 - COVID-19; J12.82 - Pneumonia due to coronavirus disease 2018 Status: Acute Assessment and Plan: Intubated (4) Acute hypoxemic respiratory failure: Code(s): J96.01 - Acute respiratory failure with hypoxia Status: Acute Assessment and Plan: Intubated (5) Cardiomyopathy: Code(s): I42.9 - Cardiomyopathy, unspecified Status: Acute Assessment and Plan: EF 40-45% with wall motion abnormalities present. The troponin trend and clinical scenario supports a stress-induced cardiomyopathy rather than a large infarct. Start low-dose carvedilol 3.125 mg p.o. b.i.d. and add DEMETRIUS-inhibitor when able. Continue aspirin and enoxaparin. Will need follow-up imaging (6) Elevated troponin: Code(s): R77.8 - Other specified abnormalities of plasma proteins Status: Acute Assessment and Plan: Trend is consistent with injury like a takotsubo rather than acute plaque rupture. Subjective Date/time seen: 07/30/21 12:11 Interval history: 66-year-old woman with a history of cluster headaches on p.r.n. oxygen at home, hypertension who was exposed to a granddaughter at [facility] who tested positive for COVID and her is also positive for COVID. Patient tested positive for COVID on 07/17/2021 and then had hypoxemia at home and self-treated her hypoxemia with with supplemental oxygen up to 8 L. 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 She remains hemodynamically stable. No significant arrhythmia. Review of Systems Review of Systems: All systems reviewed & are unremarkable except as noted in HPI and below Constitutional: Constitutional: Reports body ache(s), Denies excessive sweating and Reports headache(s) Eyes: Eyes: Denies blurry vision ENT: Reports Normal hearing present, Reports headache(s), Denies lip swelling and Denies neck pain Cardiovascular: Cardiovascular: Denies chest pain and Reports dyspnea Respiratory: Respiratory: Reports cough and Reports dyspnea Gastrointestinal: Gastrointestinal: Reports diarrhea Genitourinary: Genitourinary: Denies flank pain Musculoskeletal: Musculoskeletal: Denies neck pain Integumentary/Breasts: Skin/Breast: Denies dry skin Neurologic: Reports Normal hearing present and Reports headache(s) Psychiatric: Psychiatric: Denies anxiety Endocrine: Endocrine: Denies excessive sweating Hematologic/Lymphatic: Hematologic/Lymphatic: Denies easy bleeding Allergic/Immunologic: Allergic/Immunologic: Denies lip swelling Exam Narrative: Intubated and sedated. Const: General: comfortable HENMT: General nose exam: Normal nares present Eyes: Sclera: sclerae normal Neck: Neck: no JVD Chest: Other: No chest wall deformities Resp: Auscultation: diminished lung sounds Cardio: Rate: regular rate Rhythm: regular rhythm GI: Auscultation: normal bowel sounds Skin: General skin exam: normal color Neuro: Cranial nerves: Yes Normal hearing present Cognition (Neuro): abnormal cognition Motor exam (neuro): Normal motor muscle tone present throughout Extrem: General: no edema Psych: Other: Currently sedated Objective Data Vital Signs Vital Signs: Vital Signs - 24 hr 07/29/21 14:00 07/29/21 14:27 07/29/21 14:42 Temperature Pulse Rate 74 73 73 Respiratory Rate 26 H 28 H Blood Pr
[2021-07-30] MEDS: CISATRACURIUM BESYLATE 200 MG in DEXTROSE 5% 80 ML 6.44 ML IV CONT (13:49)
--- NOTE | 2021-07-30 14:16 | WPDINTPN ---
Progress Note: A&P Assessment and Plan (1) Acute hypoxemic respiratory failure: Code(s): J96.01 - Acute respiratory failure with hypoxia Status: Acute Assessment and Plan: Acute hypoxic respiratory failure, patient has been tested positive for COVID on 07/17/2021. Patient received Regen-Cov on 07/22/2021. Patient is unvaccinated -patient has been using oxygen up to 8 L at home before she presented the ED with increasing shortness of breath, fevers, nonproductive cough. -in the intermediate Unit patient had increasing oxygen requirements, was placed on BiPAP this morning on 100% FiO2, she was dyspneic, tachypneic, shallow breathing. -intubated the patient on 07/28/2021 -she is currently on CMV mode of ventilation, peep 10 and 75% FiO2. Continue to wean FiO2 to maintain O2 sats greater than 92% -chest x-ray and ABGs reviewed -continue bronchodilators, add Pulmicort -sedation with fentanyl Versed infusion -continue placing patient in prone position for at least 16 hours daily -continue low tidal volume strategy to avoid Volu-trauma (2) Pneumonia due to COVID-19 virus: Code(s): U07.1 - COVID-19; J12.82 - Pneumonia due to coronavirus disease 2019 Status: Acute Assessment and Plan: COVID pneumonia, patient was tested positive on 07/17/2021 -continue remdesivir which was initiated on 07/25/2021 -continue dexamethasone and Baricitinib -continue droplet, airborne, contact isolation/precautions (3) GERD (gastroesophageal reflux disease): Code(s): K21.9 - Gastro-esophageal reflux disease without esophagitis Status: Acute Assessment and Plan: Continue Protonix (4) Hypertension: Code(s): I10 - Essential (primary) hypertension Status: Acute Assessment and Plan: Continue carvedilol low-dose for now (5) Abnormal EKG: Code(s): R94.31 - Abnormal electrocardiogram [ECG] [EKG] Status: Acute Assessment and Plan: Patient has an abdominal EKG diffuse T-wave inversion. Could be related to coronary artery disease, type 2 infarct acute respiratory and hypoxia -echocardiogram showed likely stressed induced cardiomyopathy (takotsubo cardiomyopathy) could be related to underlying ischemia -patient started on aspirin, low-dose carvedilol, -continue therapeutic Lovenox per Cardiology Will add DEMETRIUS-inhibitor when able Echocardiogram 07/29/2021: Multiple wall motion abnormalities, EF of 40-45%, Takotsubo's cardiomyopathy seen on the echocardiogram. Grade 1 diastolic dysfunction (6) DVT prophylaxis: Code(s): Z29.9 - Encounter for prophylactic measures, unspecified Status: Acute Assessment and Plan: Therapeutic Lovenox Additional Plan Discussed with Severino and updated with patient's condition and plan of care. I answered all questions Code status: Full code Critical care time spent: 35 minutes Discussed with cardiology This dictation may have been done utilizing a voice recognition system. Attempts have been made to correct errors. However, there may be uncorrected grammatical, spelling, and recognition errors present. Due to a high probability of clinically significant, life threatening deterioration, the patient required my highest level of preparedness to intervene emergently and I personally spent this critical care time directly and personally managing the patient. This critical care time included obtaining a history; examining the patient; pulse oximetry; ordering and review of studies; arranging urgent treatment with development of a management plan; evaluation of patient's response to treatment; frequent reassessment; and discussions with other providers. It was exclusive of separately billable procedures and treating other patients and teaching time. Please see Assessment and Plan section and the rest of the note for further information on patient assessment and treatment Subjective Date/time seen: 07/30/21 14:16 Interval his
[2021-07-30] MEDS: FENTANYL 2,500MCG/NS250ML(*CRX 2,500 MCG/250 ML BAG 15 MCG IV CONT (17:29)
[2021-07-30] MEDS: carvediloL 3.125 MG TABLET PO (20:14)
[2021-07-30] MEDS: REMDESIVIR 100 MG/NS 250 ML 100 MG/250 ML BAG 250 MG IVPB (21:26)
[2021-07-31] VITALS (38 sets, daily range): BP systolic 78–137; BP diastolic 50–89; PULSE 9–120; RESP 18–100; TEMP 36.1–38.1; O2SAT 91–99
[2021-07-31] MEDS: CISATRACURIUM BESYLATE 200 MG in DEXTROSE 5% 80 ML 8.59 ML IV CONT ×3 (00:59→21:51)
[2021-07-31] MEDS: MIDAZOLAM 100MG/NS 100ML(*CRX) 100 MG/100 ML BAG IV CONT (01:01)
[2021-07-31] MEDS: LEVALBUTEROL NEB 1.25 MG/3 ML 0.63 MG INHALATION ×4 (03:19→21:37)
[2021-07-31] MEDS: IPRATROPIUM BR 0.02% INH SOLN 0.5 MG/2.5 ML VIAL INHALATION ×4 (03:19→21:37)
[2021-07-31 05:52] LABS: Hematocrit 41.4 % (37.0-47.0); Hemoglobin 13.9 g/dL (12.0-15.0); Mean Corpuscular HGB Conc 33.6 g/dl (32-36); Mean Corpuscular Hemoglobin 31.4 pg (26-34); Mean Corpuscular Volume 93.7 fl (80-100); Mean Platelet Volume 9.7 fl (7.4-10.4); Platelet Count Result 368 k/mm3 (150-375); Red Blood Count 4.42 M/mm3 (4.2-5.4); Red Cell Distribution Width 12.7 % (11.5-14.5); White Blood Count 20.7 K/mm3 (4.5-10.0)
[2021-07-31 06:01] LABS: INR 1.3; Prothrombin Time 15.8 Seconds (11.1-14.7)
[2021-07-31 06:06] LABS: Alanine Aminotransferase 43 U/L (4-35); Albumin Level 3.2 g/dL (3.5-5.1); Alkaline Phosphatase 138 U/L (38-126); Anion Gap 9 mmol/L (8-16); Aspartate Amino Transferase 31 U/L (14-36); Bilirubin,Total 0.7 mg/dL (0.2-1.3); Blood Urea Nitrogen 33 mg/dL (7-17); Carbon Dioxide 31 mmol/L (22-30); Chloride 96 mmol/L (98-107); Estimated CRCL calculation 88 ml/min; Estimated Glomerular Filt Rate > 60; Glucose 133 mg/dL (65-110); Magnesium 2.3 mg/dL (1.6-2.3); Phosphorus 2.4 mg/dL (2.5-4.5); Potassium 4.3 mmol/L (3.4-5.0); Sodium 136 mmol/L (137-145)
[2021-07-31 06:25] LABS: Base Excess ABG 2.6 mEq/l (+/-2.0); Carboxyhemoglobin 0.2 % THb (0-2.0); Fractional Inspired Oxygen 60 %; HCO3 ABG 26.4 mEq/l (22.0-26.0); Methemoglobin ABG 0.3 %THb (0-1.5); Oxygen Saturation ABG 96.4 % (95.0-100.0); Oxyhemoglobin 95.1 % THb (90.0-100.0); PO2 FiO2 Ratio Arterial Blood 1.33 %; Reduced Hemoglobin 4.4 %THb (0-5.0); Site Drawn RIGHT RADIAL; Total Hemoglobin 14.2 g/dL (12.0-18.0)
[2021-07-31 06:26] LABS: Arterial Blood Gas Vent Mode CMV; Arterial Blood Gas Ventilator rate 26 /MIN; Device VENTILATOR; Modified Allen's Test Pass
[2021-07-31 06:27] LABS: Arterial Blood Gas PEEP 10 cmH2O; Arterial Blood Gas Tidal Volume 350 ml
[2021-07-31 06:54] LABS: Band Neutrophils Percent 13 % (0-6); Lymphocytes Absolute Manual 0.62 K/mm3 (1.1-4.5); Monocytes Absolute Manual 0.41 K/mm3 (0.1-0.90); Monocytes Percent Manual 2 % (3-9); Neutrophils Absolute Manual 19.66 K/mm3 (1.7-7.2); Neutrophils Percent Manual 82 % (46-73); Platelet Estimate Adequate (Adequate); Total Cells Counted 100
[2021-07-31] MEDS: PANTOPRAZOLE SODIUM IV 40 MG VIAL IV PUSH (08:36)
[2021-07-31] MEDS: BARICITINIB 2 MG TABLET 4 MG PO (08:36)
[2021-07-31] MEDS: ENOXAPARIN 80 MG/0.8 ML SYRINGE 70 MG SUB-Q ×2 (08:37→20:21)
[2021-07-31] MEDS: MINERAL OIL/WHITE PETROLATUM OINTMENT 1 APPLIC EACH EYE ×2 (08:37→21:50)
--- NOTE | 2021-07-31 08:52 | PM.PNCARD ---
Progress Note: A&P Additional Plan 66-year-old woman who is critically ill with COVID pneumonia. Working diagnosis in this setting is takotsubo cardiomyopathy. Agree with advancing her carvedilol today. Will add a modest dose of DEMETRIUS-inhibitor/ARB as well. Prognosis seems poor Jonnie Bains MD [facility] Subjective Date/time seen: Date of service: 07/31/21 08:52 Interval history: Follow-up visit in this 66-year-old lady with: Suspected takotsubo stress cardiomyopathy in the setting of severe COVID pneumonia requiring ICU care intubation in ventilator support. Echocardiogram demonstrates wall motion abnormalities typical of takotsubo. She is now receiving carvedilol, had a dosage increase this morning by the licensed sales assistant because of persistent tachycardia. Patient is currently sedated in the ICU in prone position on ventilator support. Exam Const: Other: Intubated white female prone position on the ventilator sedated in the ICU Neck: Neck: supple Resp: Other: Coarse rhonchorous breath sounds throughout both lung gonzalez Cardio: Other: Did not rotate the patient into supine position for auscultation as she is proned on the ventilator GI: GI Palp: Yes Soft to palpation Skin: General skin exam: normal color Neuro: Other: Sedated Extrem: Other: No edema adequate distal flow Objective Data Vital Signs Vital Signs: Vital Signs - 24 hr 07/30/21 10:00 07/30/21 11:30 07/30/21 12:00 Temperature 35.6 C L Pulse Rate 100 92 99 Respiratory Rate 26 H 26 H Blood Pressure 103/66 109/70 Pulse Oximetry 100 98 94 07/30/21 13:43 07/30/21 13:49 07/30/21 14:00 Temperature Pulse Rate 102 H 101 H 98 Respiratory Rate 26 H 26 H 26 H Blood Pressure 104/72 104/72 102/60 Pulse Oximetry 97 07/30/21 14:07 07/30/21 14:10 07/30/21 16:00 Temperature Pulse Rate 102 H 103 H 106 H Respiratory Rate 26 H 26 H 26 H Blood Pressure 95/68 L Pulse Oximetry 94 07/30/21 17:15 07/30/21 17:29 07/30/21 18:00 Temperature 36.2 C L Pulse Rate 100 103 H 109 H Respiratory Rate 26 H 26 H Blood Pressure 117/62 Pulse Oximetry 95 95 07/30/21 20:00 07/30/21 20:14 07/30/21 22:00 Temperature 36.5 C Pulse Rate 122 H 122 H 108 H Respiratory Rate 114 H 26 H Blood Pressure 114/68 95/66 L Pulse Oximetry 92 93 07/30/21 23:39 07/30/21 23:40 07/31/21 00:00 Temperature 36.4 C L Pulse Rate 97 97 99 Respiratory Rate 26 H 26 H Blood Pressure 92/57 L Pulse Oximetry 93 92 07/31/21 00:59 07/31/21 01:01 07/31/21 02:00 Temperature Pulse Rate 99 98 97 Respiratory Rate 26 H 26 H 26 H Blood Pressure 93/58 L 91/59 L Pulse Oximetry 93 07/31/21 03:20 07/31/21 03:21 07/31/21 04:00 Temperature 36.9 C Pulse Rate 96 97 104 H Respiratory Rate 26 H 26 H Blood Pressure 108/57 L Pulse Oximetry 95 97 07/31/21 05:00 07/31/21 05:42 07/31/21 06:00 Temperature Pulse Rate 108 H 111 H 119 H Respiratory Rate 26 H 26 H Blood Pressure 137/73 Pulse Oximetry 97 96 07/31/21 06:22 07/31/21 06:26 Temperature Pulse Rate 108 H 119 H Respiratory Rate 100 H 26 H Blood Pressure 137/73 Pulse Oximetry Intake/Output Intake/Output: Intake & Output 07/28/21 07/29/21 07/30/21 07/31/21 23:59 23:59 23:59 23:59 Intake Total 318 1164 1673 1111 Output Total 3645 924 3323 500 Balance -682 189 623 611 Meds/Results Medications: Active Medications Generic Name Dose Route Start Last Admin Trade Name Freq PRN Reason Stop Dose Admin Acetaminophen 650 mg 07/25/21 11:41 07/26/21 22:50 Acetaminophen 325 Mg Tablet PO 650 mg Q4H PRN Administration Mild Pain (1-3) or Fever Aspirin 81 mg 07/29/21 09:55 07/30/21 10:59 Aspirin 81 Mg Chewable Tablet PO 81 mg DAILY@0800 YUNIOR Administration Baricitinib 4 mg 07/27/21 16:00 07/31/21 08:36 Baricitinib 2 Mg Tablet PO 4 mg DAILY YUNIOR Administration Benzonatate 100 mg 12/04/21 20:16 07/27/21 20:06 Benzonatate
[2021-07-31] MEDS: BUDESONIDE RESPULE NEB 0.5 MG/2 ML AMP INHALATION ×2 (09:58→21:37)
[2021-07-31] MEDS: ASPIRIN 81 MG CHEWABLE TABLET PO (10:43)
[2021-07-31] MEDS: ACETAMINOPHEN 325 MG TABLET 650 MG PO (10:43)
[2021-07-31] MEDS: PHENYLEPHRINE HCL 10 MG/ML VIAL (12:00)
[2021-07-31] MEDS: PHENYLEPHRINE 1,000 MCG/10 ML SYRINGE 20 MCG IV PUSH (12:15)
--- NOTE | 2021-07-31 12:19 | WPDINTPN ---
Progress Note: A&P Assessment and Plan (1) Sepsis: Code(s): A41.9 - Sepsis, unspecified organism Status: Acute Assessment and Plan: Patient febrile later this morning with a fever of 100.6, hypotension, PICC line was placed, will give 1 L IV fluid bolus -check lactic acid -will start vasopressors if needed -panculture (2) Acute hypoxemic respiratory failure: Code(s): J96.01 - Acute respiratory failure with hypoxia Status: Acute Assessment and Plan: Acute hypoxic respiratory failure, patient has been tested positive for COVID on 07/17/2021. Patient received Regen-Cov on 07/22/2021. Patient is unvaccinated -failed high-flow therapy and BiPAP and was intubated on 07/28/2021 -she is currently on CMV mode of ventilation, peep 10 and 60% FiO2. Continue to wean FiO2 to maintain O2 sats greater than 92% -chest x-ray and ABGs reviewed -continue bronchodilators, add Pulmicort -sedation with fentanyl Versed infusion. Patient also on neuromuscular blockade with Nimbex -continue placing patient in prone position for at least 16 hours daily -continue low tidal volume strategy to avoid Volu-trauma (3) Pneumonia due to COVID-19 virus: Code(s): U07.1 - COVID-19; J12.82 - Pneumonia due to coronavirus disease 2019 Status: Acute Assessment and Plan: COVID pneumonia, patient was tested positive on 07/17/2021 -continue remdesivir which was initiated on 07/25/2021 -continue dexamethasone and Baricitinib -continue droplet, airborne, contact isolation/precautions (4) GERD (gastroesophageal reflux disease): Code(s): K21.9 - Gastro-esophageal reflux disease without esophagitis Status: Acute Assessment and Plan: Continue Protonix (5) Hypertension: Code(s): I10 - Essential (primary) hypertension Status: Acute Assessment and Plan: Will hold Coreg and losartan (6) Abnormal EKG: Code(s): R94.31 - Abnormal electrocardiogram [ECG] [EKG] Status: Acute Assessment and Plan: Patient has an abdominal EKG diffuse T-wave inversion. Could be related to coronary artery disease, type 2 infarct acute respiratory and hypoxia -echocardiogram showed likely stressed induced cardiomyopathy (takotsubo cardiomyopathy) could be related to underlying ischemia -patient started on aspirin, -continue therapeutic Lovenox per Cardiology Hold Coreg and losartan since patient's blood pressures are low Echocardiogram 07/29/2021: Multiple wall motion abnormalities, EF of 40-45%, Takotsubo's cardiomyopathy seen on the echocardiogram. Grade 1 diastolic dysfunction (7) DVT prophylaxis: Code(s): Z29.9 - Encounter for prophylactic measures, unspecified Status: Acute Assessment and Plan: Therapeutic Lovenox Additional Plan Discussed with Severino and updated with patient's condition and plan of care. I answered all questions Code status: Full code Critical care time spent: 33 minutes Discussed with cardiology This dictation may have been done utilizing a voice recognition system. Attempts have been made to correct errors. However, there may be uncorrected grammatical, spelling, and recognition errors present. Due to a high probability of clinically significant, life threatening deterioration, the patient required my highest level of preparedness to intervene emergently and I personally spent this critical care time directly and personally managing the patient. This critical care time included obtaining a history; examining the patient; pulse oximetry; ordering and review of studies; arranging urgent treatment with development of a management plan; evaluation of patient's response to treatment; frequent reassessment; and discussions with other providers. It was exclusive of separately billable procedures and treating other patients and teaching time. Please see Assessment and Plan section and the rest of the note for further information on patient
[2021-07-31] MEDS: NOREPINEPHRINE 8 MG/D5W 250 ML 8 MG/250 ML BAG 18.75 MG IV CONT (12:30)
[2021-07-31] MEDS: LACTATED RINGERS 1,000 ML 999 ML IV CONT (13:06)
[2021-07-31 13:18] LABS: Lactic Acid Reflex 2.5 mmol/L (0.7-2.1)
[2021-07-31] MEDS: FENTANYL 2,500MCG/NS250ML(*CRX 2,500 MCG/250 ML BAG 12.5 MCG IV CONT (13:43)
[2021-07-31 16:05] LABS: Reflex Lactic Acid Yes or No Add Lactic
[2021-07-31 18:57] LABS: Add Urine Microscopic? YES; Appearance Urine Cloudy (Clear); Bacteria Urine Trace /hpf; Bilirubin Urine Negative (Negative); Blood Urine Negative (Negative); Color Urine Yellow (Yellow); Glucose Urine UA 3+ mg/dL (Negative); Ketones Urine Negative (Negative); Leukocyte Esterase Ur Negative LEU/UL (NEGATIVE); Mucus Urine Moderate /lpf; Nitrate Urine Negative (Negative); Protein Urine 1+ mg/dL (Negative); Specific Grav Ur 1.028 (1.001-1.035); Squamous Epithelial Cell Urine Rare /hpf (Few); WBC Urine 0-3 /hpf (0-3)
[2021-07-31 19:10] LABS: Lactic Acid 1.6 mmol/L (0.7-2.1)
[2021-07-31] MEDS: NOREPINEPHRINE 8 MG/D5W 250 ML 8 MG/250 ML BAG 15 MG IV CONT (21:51)
[2021-07-31] MEDS: REMDESIVIR 100 MG/NS 250 ML 100 MG/250 ML BAG 250 MG IVPB (21:51)
[2021-07-31] MEDS: CENTRAL LINE FLUSH 10 ML IV PUSH (21:54)
[2021-08-01] VITALS (34 sets, daily range): BP systolic 87–137; BP diastolic 48–69; PULSE 26–117; RESP 24–26; TEMP 36.2–37.6; O2SAT 90–98
[2021-08-01] MEDS: LEVALBUTEROL NEB 1.25 MG/3 ML 0.63 MG INHALATION ×4 (03:13→20:01)
[2021-08-01] MEDS: IPRATROPIUM BR 0.02% INH SOLN 0.5 MG/2.5 ML VIAL INHALATION ×4 (03:13→20:00)
[2021-08-01 04:46] LABS: Hematocrit 34.9 % (37.0-47.0); Hemoglobin 11.6 g/dL (12.0-15.0); Mean Corpuscular HGB Conc 33.2 g/dl (32-36); Mean Corpuscular Hemoglobin 30.9 pg (26-34); Mean Corpuscular Volume 92.8 fl (80-100); Red Blood Count 3.76 M/mm3 (4.2-5.4); Red Cell Distribution Width 12.7 % (11.5-14.5); White Blood Count 17.5 K/mm3 (4.5-10.0)
[2021-08-01 04:55] LABS: Anion Gap 9 mmol/L (8-16); Blood Urea Nitrogen 24 mg/dL (7-17); Calcium 7.4 mg/dL (8.4-10.2); Carbon Dioxide 27 mmol/L (22-30); Chloride 95 mmol/L (98-107); Estimated CRCL calculation 137 ml/min; Estimated Glomerular Filt Rate > 60; Glucose 299 mg/dL (65-110); Magnesium 1.9 mg/dL (1.6-2.3); Phosphorus 1.5 mg/dL (2.5-4.5); Potassium 3.7 mmol/L (3.4-5.0); Sodium 131 mmol/L (137-145)
[2021-08-01 04:56] LABS: Alanine Aminotransferase 38 U/L (4-35); Albumin Level 2.4 g/dL (3.5-5.1); Alkaline Phosphatase 118 U/L (38-126); Aspartate Amino Transferase 23 U/L (14-36); Bilirubin,Total 0.4 mg/dL (0.2-1.3)
[2021-08-01 05:10] LABS: INR 1.3; Prothrombin Time 16.4 Seconds (11.1-14.7)
[2021-08-01 05:23] LABS: Band Neutrophils Percent 8 % (0-6); Lymphocytes Absolute Manual 0.52 K/mm3 (1.1-4.5); Monocytes Absolute Manual 1.57 K/mm3 (0.1-0.90); Monocytes Percent Manual 9 % (3-9); Neutrophils Percent Manual 80 % (46-73); Platelet Estimate Adequate (Adequate); Total Cells Counted 100
[2021-08-01] MEDS: MIDAZOLAM 100MG/NS 100ML(*CRX) 100 MG/100 ML BAG IV CONT (06:37)
[2021-08-01] MEDS: CENTRAL LINE FLUSH 10 ML IV PUSH ×3 (06:39→21:37)
[2021-08-01 06:50] LABS: Alveolar/Arterial O2 Gradient 221.1 mmHg; Base Excess ABG 5.9 mEq/l (+/-2.0); Carboxyhemoglobin 0.1 % THb (0-2.0); Fractional Inspired Oxygen 50 %; HCO3 ABG 31.8 mEq/l (22.0-26.0); Methemoglobin ABG 0.3 %THb (0-1.5); Oxygen Saturation ABG 95.4 % (95.0-100.0); Oxyhemoglobin 94.2 % THb (90.0-100.0); PCO2 ABG 51.6 mmHg (35.0-45.0); PO2 ABG 77.4 mmHg (80.0-100.0); PO2 FiO2 Ratio Arterial Blood 1.55 %; Reduced Hemoglobin 5.4 %THb (0-5.0); Total Hemoglobin 12.8 g/dL (12.0-18.0); pH ABG 7.408 (7.350-7.450)
[2021-08-01 07:07] LABS: Arterial Blood Gas Vent Mode CMV; Arterial Blood Gas Ventilator rate 26 /MIN; Device VENTILATOR; Modified Allen's Test Pass; Site Drawn RIGHT RADIAL
[2021-08-01 07:08] LABS: Arterial Blood Gas PEEP 10 cmH2O; Arterial Blood Gas Tidal Volume 330 ml
[2021-08-01] MEDS: BUDESONIDE RESPULE NEB 0.5 MG/2 ML AMP INHALATION ×2 (08:34→20:00)
[2021-08-01] MEDS: PANTOPRAZOLE SODIUM IV 40 MG VIAL IV PUSH (08:53)
[2021-08-01] MEDS: BARICITINIB 2 MG TABLET 4 MG PO (08:53)
[2021-08-01] MEDS: ENOXAPARIN 80 MG/0.8 ML SYRINGE 70 MG SUB-Q (08:53)
[2021-08-01] MEDS: MINERAL OIL/WHITE PETROLATUM OINTMENT 1 APPLIC EACH EYE ×2 (08:55→21:36)
[2021-08-01] MEDS: ASPIRIN 81 MG CHEWABLE TABLET PO (09:45)
[2021-08-01] MEDS: FENTANYL 2,500MCG/NS250ML(*CRX 2,500 MCG/250 ML BAG 12.5 MCG IV CONT (09:48)
[2021-08-01] MEDS: CISATRACURIUM BESYLATE 200 MG in DEXTROSE 5% 80 ML 8.59 ML IV CONT (09:51)
--- NOTE | 2021-08-01 12:42 | WPDINTPN ---
Progress Note: A&P Assessment and Plan (1) Sepsis: Code(s): A41.9 - Sepsis, unspecified organism Status: Acute Assessment and Plan: Patient febrile later this morning with a fever of 100.6, hypotension, PICC line was placed, will give 1 L IV fluid bolus -lactic acid was normal -patient started on Levophed, which is being weaned down -patient has been pancultured and 07/31/2021 -chest x-ray shows worsening bilateral basilar infiltrates, -white count elevated but trending down -and vancomycin and cefepime (2) Acute hypoxemic respiratory failure: Code(s): J96.01 - Acute respiratory failure with hypoxia Status: Acute Assessment and Plan: Acute hypoxic respiratory failure, patient has been tested positive for COVID on 07/17/2021. Patient received Regen-Cov on 07/22/2021. Patient is unvaccinated -failed high-flow therapy and BiPAP and was intubated on 07/28/2021 -she is currently on CMV mode of ventilation, peep 10 and 50% FiO2. Continue to wean FiO2 to maintain O2 sats greater than 92% -chest x-ray and ABGs reviewed -continue bronchodilators, add Pulmicort -sedation with fentanyl Versed infusion. Patient also on neuromuscular blockade with Nimbex -continue placing patient in prone position for at least 16 hours daily -continue low tidal volume strategy to avoid Volu-trauma (3) Pneumonia due to COVID-19 virus: Code(s): U07.1 - COVID-19; J12.82 - Pneumonia due to coronavirus disease 2019 Status: Acute Assessment and Plan: COVID pneumonia, patient was tested positive on 07/17/2021 -continue remdesivir which was initiated on 07/25/2021 -continue dexamethasone and Baricitinib -continue droplet, airborne, contact isolation/precautions (4) GERD (gastroesophageal reflux disease): Code(s): K21.9 - Gastro-esophageal reflux disease without esophagitis Status: Acute Assessment and Plan: Continue Protonix (5) Hypertension: Code(s): I10 - Essential (primary) hypertension Status: Acute Assessment and Plan: Will hold Coreg and losartan due to patient being on vasopressor (6) Abnormal EKG: Code(s): R94.31 - Abnormal electrocardiogram [ECG] [EKG] Status: Acute Assessment and Plan: Patient has an abdominal EKG diffuse T-wave inversion. Could be related to coronary artery disease, type 2 infarct acute respiratory and hypoxia -echocardiogram showed likely stressed induced cardiomyopathy (takotsubo cardiomyopathy) could be related to underlying ischemia -patient started on aspirin, -continue therapeutic Lovenox per Cardiology, switch to prophylactic dose of Lovenox, discussed with Cardiology Hold Coreg and losartan since patient on vasopressors Echocardiogram 07/29/2021: Multiple wall motion abnormalities, EF of 40-45%, Takotsubo's cardiomyopathy seen on the echocardiogram. Grade 1 diastolic dysfunction (7) DVT prophylaxis: Code(s): Z29.9 - Encounter for prophylactic measures, unspecified Status: Acute Assessment and Plan: Switch therapeutic Lovenox to 40 mg SQ daily Additional Plan Nutrition: Tolerating tube feeds Code status: Full code Critical care time spent: 32 minutes Discussed with cardiology This dictation may have been done utilizing a voice recognition system. Attempts have been made to correct errors. However, there may be uncorrected grammatical, spelling, and recognition errors present. Due to a high probability of clinically significant, life threatening deterioration, the patient required my highest level of preparedness to intervene emergently and I personally spent this critical care time directly and personally managing the patient. This critical care time included obtaining a history; examining the patient; pulse oximetry; ordering and review of studies; arranging urgent treatment with development of a management plan; evaluation of patient's response to treatment; frequent reassessmen
[2021-08-01] MEDS: CISATRACURIUM BESYLATE 200 MG in DEXTROSE 5% 80 ML 7.52 ML IV CONT (17:09)
[2021-08-01] MEDS: REMDESIVIR 100 MG/NS 250 ML 100 MG/250 ML BAG 250 MG IVPB (21:37)
[2021-08-02] VITALS (34 sets, daily range): BP systolic 100–130; BP diastolic 53–65; PULSE 77–121; RESP 22–41; TEMP 36.6–37.6; O2SAT 89–100
[2021-08-02] MEDS: IPRATROPIUM BR 0.02% INH SOLN 0.5 MG/2.5 ML VIAL INHALATION ×4 (02:17→22:08)
[2021-08-02] MEDS: LEVALBUTEROL NEB 1.25 MG/3 ML 0.63 MG INHALATION ×4 (02:17→22:09)
[2021-08-02] MEDS: CENTRAL LINE FLUSH 10 ML IV PUSH ×3 (05:12→20:34)
[2021-08-02] MEDS: CISATRACURIUM BESYLATE 200 MG in DEXTROSE 5% 80 ML 8.59 ML IV CONT (05:25)
[2021-08-02] MEDS: FENTANYL 2,500MCG/NS250ML(*CRX 2,500 MCG/250 ML BAG 12.5 MCG IV CONT (05:45)
[2021-08-02 06:11] LABS: Alveolar/Arterial O2 Gradient 355.2 mmHg; Carboxyhemoglobin 0.4 % THb (0-2.0); Fractional Inspired Oxygen 70 %; HCO3 ABG 30.5 mEq/l (22.0-26.0); Methemoglobin ABG 0.3 %THb (0-1.5); Oxygen Content ABG 17.6 %vol (16.0-22.0); Oxygen Saturation ABG 97.7 % (95.0-100.0); Oxyhemoglobin 96.5 % THb (90.0-100.0); PCO2 ABG 43.2 mmHg (35.0-45.0); PO2 ABG 97.5 mmHg (80.0-100.0); PO2 FiO2 Ratio Arterial Blood 1.39 %; Reduced Hemoglobin 2.8 %THb (0-5.0); Total Hemoglobin 12.9 g/dL (12.0-18.0); pH ABG 7.466 (7.350-7.450)
[2021-08-02 06:21] LABS: Device VENTILATOR; Site Drawn LEFT RADIAL
[2021-08-02] MEDS: BUDESONIDE RESPULE NEB 0.5 MG/2 ML AMP INHALATION (08:40)
[2021-08-02] MEDS: MINERAL OIL/WHITE PETROLATUM OINTMENT 1 APPLIC EACH EYE ×2 (08:55→20:34)
[2021-08-02] MEDS: BARICITINIB 2 MG TABLET 4 MG PO (08:55)
[2021-08-02] MEDS: POTASSIUM/PHOSPHORUS/SODIUM 1.5 GM PACKET 1 PACKET PO (08:56)
[2021-08-02] MEDS: ASPIRIN 81 MG CHEWABLE TABLET PO (08:56)
[2021-08-02] MEDS: ENOXAPARIN 40 MG/0.4 ML SYRINGE SUB-Q (08:57)
[2021-08-02 09:04] LABS: Basophils Absolute Auto 0.1 K/mm3 (0.0-0.1); Basophils Percent Auto 0.8 % (0.2-1.2); Eosinophils Percent Auto 0.3 % (0-4.4); Hematocrit 33.6 % (37.0-47.0); Hemoglobin 11.2 g/dL (12.0-15.0); Immature Granulocyte Absolute 0.23 K/mm3 (0.00-0.031); Lymphocytes Percent Auto 3.5 % (18.3-44.2); Mean Corpuscular HGB Conc 33.3 g/dl (32-36); Mean Corpuscular Hemoglobin 31.1 pg (26-34); Mean Corpuscular Volume 93.3 fl (80-100); Mean Platelet Volume 10.3 fl (7.4-10.4); Monocytes Absolute Auto 0.9 K/mm3 (0.1-0.6); Monocytes Percent Auto 8.1 % (2.6-8.5); Neutrophils Absolute Auto 9.8 K/mm3 (1.3-6.7); Neutrophils Percent Auto 85.3 % (45.5-73.1); Platelet Count Result 258 k/mm3 (150-375); White Blood Count 11.5 K/mm3 (4.5-10.0)
[2021-08-02 09:17] LABS: INR 1.3; Prothrombin Time 15.6 Seconds (11.1-14.7)
[2021-08-02 09:22] LABS: Alanine Aminotransferase 46 U/L (4-35); Albumin Level 2.2 g/dL (3.5-5.1); Alkaline Phosphatase 111 U/L (38-126); Anion Gap 4 mmol/L (8-16); Aspartate Amino Transferase 44 U/L (14-36); Bilirubin,Total 0.4 mg/dL (0.2-1.3); Blood Urea Nitrogen 25 mg/dL (7-17); Calcium 7.7 mg/dL (8.4-10.2); Carbon Dioxide 32 mmol/L (22-30); Chloride 96 mmol/L (98-107); Estimated CRCL calculation 137 ml/min; Estimated Glomerular Filt Rate > 60; Glucose 166 mg/dL (65-110); Phosphorus 1.8 mg/dL (2.5-4.5); Potassium 4.3 mmol/L (3.4-5.0); Sodium 132 mmol/L (137-145)
[2021-08-02 11:02] LABS: Anisocytosis 1+ (NORMAL); Helmet Cells 1+ (NORMAL); Platelet Estimate Adequate (Adequate)
[2021-08-02] MEDS: polyethylene glycoL 3350 17 GM POWD.PACK PO ×2 (12:19→14:03)
[2021-08-02 12:25] LABS: Glucose Point of Care 154 mg/dl (65-105)
--- NOTE | 2021-08-02 12:33 | PM.PNCARD ---
Progress Note: A&P Additional Plan 66-year-old female with: Suspected takotsubo stress cardiomyopathy based on ECG and echocardiographic findings. Hemodynamics somewhat better and that he she is no longer on pressure support. We will continue to follow peripherally however there are no specific cardiac recommendations at this time Jonnie Bains MD [facility] Subjective Date/time seen: Date of service: 08/02/21 12:33 Interval history: Follow-up visit in this 66-year-old lady with: Suspected takotsubo stress cardiomyopathy in the setting of severe COVID pneumonia requiring ICU care intubation in ventilator support. Echocardiogram demonstrates wall motion abnormalities typical of takotsubo. She is now receiving carvedilol, had a dosage increase this morning by the piece maker because of persistent tachycardia. Patient is currently sedated in the ICU in prone position on ventilator support. Date of service 08/02/2021: Patient clinically unchanged remains intubated and sedated in the ICU. The patient is off of pressor support but still not able to tolerate beta-lamar or vasodilators therapy. Exam Narrative: Intubated and sedated. Const: General: comfortable Other: Intubated white female prone position on the ventilator sedated in the ICU HENMT: General nose exam: Normal nares present Eyes: Sclera: sclerae normal Neck: Neck: supple and no JVD Chest: Other: No chest wall deformities Resp: Auscultation: diminished lung sounds Other: Coarse rhonchorous breath sounds throughout both lung gonzalez Cardio: Rate: regular rate Rhythm: regular rhythm Other: Did not rotate the patient into supine position for auscultation as she is proned on the ventilator GI: Auscultation: normal bowel sounds Skin: General skin exam: normal color Neuro: Cranial nerves: Yes Normal hearing present Cognition (Neuro): abnormal cognition Motor exam (neuro): Normal motor muscle tone present throughout Other: Sedated Extrem: General: no edema Other: No edema adequate distal flow Psych: Other: Currently sedated Objective Data Vital Signs Vital Signs: Vital Signs - 24 hr 08/01/21 12:45 08/01/21 14:00 08/01/21 14:25 Temperature Pulse Rate 103 H 101 H 108 H Respiratory Rate 26 H 26 H Blood Pressure 87/48 L 100/66 Pulse Oximetry 93 90 08/01/21 14:40 08/01/21 16:00 08/01/21 16:42 Temperature 37.3 C Pulse Rate 103 H 101 H 110 H Respiratory Rate 26 H 26 H Blood Pressure 117/60 Pulse Oximetry 93 94 08/01/21 17:09 08/01/21 18:00 08/01/21 20:00 Temperature 36.6 C 36.6 C Pulse Rate 106 H 103 H 101 H Respiratory Rate 26 H 26 H 26 H Blood Pressure 137/69 116/55 L 109/52 L Pulse Oximetry 98 98 08/01/21 20:02 08/01/21 20:04 08/01/21 20:16 Temperature Pulse Rate 108 H 108 H 105 H Respiratory Rate 24 H 24 H Blood Pressure Pulse Oximetry 92 08/01/21 21:45 08/01/21 22:00 08/01/21 23:27 Temperature Pulse Rate 99 97 95 Respiratory Rate 26 H 26 H Blood Pressure 118/60 116/54 L Pulse Oximetry 97 96 08/02/21 00:00 08/02/21 02:00 08/02/21 02:14 Temperature 37.2 C Pulse Rate 97 94 92 Respiratory Rate 26 H 26 H Blood Pressure 112/57 L 106/54 L Pulse Oximetry 97 96 96 08/02/21 02:17 08/02/21 02:26 08/02/21 04:00 Temperature 37.6 C H Pulse Rate 88 90 90 Respiratory Rate 22 H 22 H 26 H Blood Pressure 110/53 L Pulse Oximetry 97 08/02/21 05:16 08/02/21 05:22 08/02/21 05:25 Temperature Pulse Rate 103 H 103 H Respiratory Rate 26 H 26 H Blood Pressure 114/59 L 114/59 L 114/59 L Pulse Oximetry 08/02/21 05:45 08/02/21 05:52 08/02/21 06:00 Temperature Pulse Rate 104 H 104 H 105 H Respiratory Rate 26 H 26 H Blood Pressure 114/53 L Pulse Oximetry 100 97 08/02/21 08:00 08/02/21 08:41 08/02/21 08:48 Temperature 37.2 C Pulse Rate 105 H 103 H 106 H Respiratory Rate 26 H 26 H Blood Pressure 111/57 L Pulse Oximetry 95 92 08/02/21 08:49 1
--- NOTE | 2021-08-02 12:34 | PCFNICU ---
ICU Rounding Note: Pt current nutrition is Vital AF 1.2 at 55 ml/hr over 22 hours. Last recorded weight is 74.1 kg, up from 71.6 kg on admit. Bowel Motility:NO BM reported, miralax started. Labs Reviewed:PO4 1.8, BUN 25, Cr 0.3,ALb 2.2,Hct 33.6,Hgb 11.2 Meds Noted:Protonix, Versed, Fentanyl, Lovenox, Remdesivir, Miralax, Levophed, Vancomycin. Skin: WNL Additional Notes: Patient remains on mechanical vent. Tolerating tube feedings of Vital AF 1.2 at 55 ml/hr. Proned position. PICC lined placed. Following daily in ICU rounds. Will monitor every Monday and Monday.
--- NOTE | 2021-08-02 13:21 | WPDINTPN ---
Progress Note: A&P Assessment and Plan (1) Sepsis: Code(s): A41.9 - Sepsis, unspecified organism Status: Acute Assessment and Plan: Patient febrile later this morning with a fever of 100.6, hypotension, PICC line was placed, will give 1 L IV fluid bolus -lactic acid was normal -off Levophed -chest x-ray shows worsening bilateral basilar infiltrates, -white count normalized -Continue vancomycin and cefepime 07/31/2028 blood culture: Pseudomonas -07/31/2021 sputum culture: Pseudomonas -07/31/2021 urine culture: Enterococcus species (2) Acute hypoxemic respiratory failure: Code(s): J96.01 - Acute respiratory failure with hypoxia Status: Acute Assessment and Plan: Acute hypoxic respiratory failure, patient has been tested positive for COVID on 07/17/2021. Patient received Regen-Cov on 07/22/2021. Patient is unvaccinated -failed high-flow therapy and BiPAP and was intubated on 07/28/2021 -she is currently on CMV mode of ventilation, peep 10 and 70% FiO2. Increasing oxygen requirement -chest x-ray and ABGs reviewed -continue bronchodilators, add Pulmicort -sedation with fentanyl Versed infusion. Patient also on neuromuscular blockade with Nimbex -continue placing patient in prone position for at least 16 hours daily -continue low tidal volume strategy to avoid Volu-trauma (3) Pneumonia due to COVID-19 virus: Code(s): U07.1 - COVID-19; J12.82 - Pneumonia due to coronavirus disease 2019 Status: Acute Assessment and Plan: COVID pneumonia, patient was tested positive on 07/17/2021 -continue remdesivir which was initiated on 07/25/2021 -continue dexamethasone and Baricitinib -continue droplet, airborne, contact isolation/precautions (4) GERD (gastroesophageal reflux disease): Code(s): K21.9 - Gastro-esophageal reflux disease without esophagitis Status: Acute Assessment and Plan: Continue Protonix (5) Hypertension: Code(s): I10 - Essential (primary) hypertension Status: Acute Assessment and Plan: Will hold Coreg and losartan due to patient being on vasopressor (6) Abnormal EKG: Code(s): R94.31 - Abnormal electrocardiogram [ECG] [EKG] Status: Acute Assessment and Plan: Patient has an abdominal EKG diffuse T-wave inversion. Could be related to coronary artery disease, type 2 infarct acute respiratory and hypoxia -echocardiogram showed likely stressed induced cardiomyopathy (takotsubo cardiomyopathy) could be related to underlying ischemia -patient started on aspirin, -continue therapeutic Lovenox per Cardiology, switch to prophylactic dose of Lovenox, discussed with Cardiology Hold Coreg and losartan as patient just came off vasopressors Echocardiogram 07/29/2021: Multiple wall motion abnormalities, EF of 40-45%, Takotsubo's cardiomyopathy seen on the echocardiogram. Grade 1 diastolic dysfunction (7) DVT prophylaxis: Code(s): Z29.9 - Encounter for prophylactic measures, unspecified Status: Acute Assessment and Plan: Switch therapeutic Lovenox to 40 mg SQ daily Additional Plan Nutrition: Tolerating tube feeds, added MiraLax Discussed with cardiology Code status: Full code Critical care time spent: 32 minutes This dictation may have been done utilizing a voice recognition system. Attempts have been made to correct errors. However, there may be uncorrected grammatical, spelling, and recognition errors present. Due to a high probability of clinically significant, life threatening deterioration, the patient required my highest level of preparedness to intervene emergently and I personally spent this critical care time directly and personally managing the patient. This critical care time included obtaining a history; examining the patient; pulse oximetry; ordering and review of studies; arranging urgent treatment with development of a management plan; evaluation of patient's response to treatment
[2021-08-02] MEDS: PANTOPRAZOLE SODIUM IV 40 MG VIAL IV PUSH (14:03)
[2021-08-02] MEDS: MIDAZOLAM 100MG/NS 100ML(*CRX) 100 MG/100 ML BAG IV CONT (15:33)
[2021-08-02] MEDS: CISATRACURIUM BESYLATE 200 MG in DEXTROSE 5% 80 ML 10.74 ML IV CONT (15:38)
[2021-08-02 18:17] LABS: Glucose Point of Care 178 mg/dl (65-105)
[2021-08-02] MEDS: REMDESIVIR 100 MG/NS 250 ML 100 MG/250 ML BAG 250 MG IVPB (20:29)
[2021-08-03] VITALS (27 sets, daily range): BP systolic 100–124; BP diastolic 56–71; PULSE 99–115; RESP 26; TEMP 36.6–37.1; O2SAT 90–99
[2021-08-03] LABS: Glucose Point of Care 191 mg/dl (65-105)
[2021-08-03] MEDS: FENTANYL 2,500MCG/NS250ML(*CRX 2,500 MCG/250 ML BAG 12.5 MCG IV CONT ×2 (01:14→16:41)
[2021-08-03 02:15] LABS: Vancomycin Trough < 5.0 ug/mL (10.0-20.0)
[2021-08-03] MEDS: CISATRACURIUM BESYLATE 200 MG in DEXTROSE 5% 80 ML 10.74 ML IV CONT (02:37)
[2021-08-03] MEDS: LEVALBUTEROL NEB 1.25 MG/3 ML 0.63 MG INHALATION ×3 (02:45→14:10)
[2021-08-03] MEDS: IPRATROPIUM BR 0.02% INH SOLN 0.5 MG/2.5 ML VIAL INHALATION ×3 (02:45→14:10)
[2021-08-03 05:20] LABS: Hematocrit 33.2 % (37.0-47.0); Hemoglobin 10.9 g/dL (12.0-15.0); Mean Corpuscular HGB Conc 32.8 g/dl (32-36); Mean Corpuscular Hemoglobin 30.3 pg (26-34); Mean Corpuscular Volume 92.2 fl (80-100); Mean Platelet Volume 10.3 fl (7.4-10.4); Platelet Count Result 239 k/mm3 (150-375); Red Cell Distribution Width 13.1 % (11.5-14.5); White Blood Count 8.8 K/mm3 (4.5-10.0)
[2021-08-03 05:32] LABS: Alanine Aminotransferase 101 U/L (4-35); Alkaline Phosphatase 119 U/L (38-126); Anion Gap 3 mmol/L (8-16); Aspartate Amino Transferase 64 U/L (14-36); Bilirubin,Total 0.3 mg/dL (0.2-1.3); Blood Urea Nitrogen 23 mg/dL (7-17); Calcium 7.9 mg/dL (8.4-10.2); Carbon Dioxide 34 mmol/L (22-30); Chloride 93 mmol/L (98-107); Estimated CRCL calculation 108 ml/min; Estimated Glomerular Filt Rate > 60; Glucose 271 mg/dL (65-110); Magnesium 2.1 mg/dL (1.6-2.3); Phosphorus 2.3 mg/dL (2.5-4.5); Potassium 4.5 mmol/L (3.4-5.0); Sodium 130 mmol/L (137-145)
[2021-08-03] MEDS: INSULIN ASPART (*BKC) 100 UNITS/ML SUB-Q ×3 (05:45→17:04)
[2021-08-03 05:46] LABS: Alveolar/Arterial O2 Gradient 284.4 mmHg; Base Excess ABG 3.5 mEq/l (+/-2.0); Carboxyhemoglobin 0.1 % THb (0-2.0); Fractional Inspired Oxygen 60 %; HCO3 ABG 28.9 mEq/l (22.0-26.0); Methemoglobin ABG 0.3 %THb (0-1.5); Oxygen Content ABG 15.1 %vol (16.0-22.0); Oxygen Saturation ABG 96.9 % (95.0-100.0); Oxyhemoglobin 95.8 % THb (90.0-100.0); PCO2 ABG 47.6 mmHg (35.0-45.0); PO2 FiO2 Ratio Arterial Blood 1.52 %; Reduced Hemoglobin 3.8 %THb (0-5.0); Total Hemoglobin 11.1 g/dL (12.0-18.0); pH ABG 7.401 (7.350-7.450)
[2021-08-03 05:48] LABS: Device VENTILATOR; Modified Allen's Test Unable to perform; Site Drawn RIGHT RADIAL
[2021-08-03 05:49] LABS: Arterial Blood Gas PEEP 10 cmH2O; Arterial Blood Gas Tidal Volume 330 ml; Arterial Blood Gas Vent Mode CMV; Arterial Blood Gas Ventilator rate 26 /MIN
[2021-08-03] MEDS: CENTRAL LINE FLUSH 10 ML IV PUSH (06:15)
[2021-08-03] MEDS: ASPIRIN 81 MG CHEWABLE TABLET PO (08:34)
[2021-08-03] MEDS: ENOXAPARIN 40 MG/0.4 ML SYRINGE SUB-Q (08:34)
[2021-08-03] MEDS: BARICITINIB 2 MG TABLET 4 MG PO (08:34)
[2021-08-03] MEDS: PANTOPRAZOLE SODIUM IV 40 MG VIAL IV PUSH (08:35)
[2021-08-03] MEDS: MINERAL OIL/WHITE PETROLATUM OINTMENT 1 APPLIC EACH EYE (08:35)
[2021-08-03 09:03] LABS: Hypochromasia 1+ (NORMAL); Platelet Estimate Adequate (Adequate)
[2021-08-03 09:04] LABS: Burr Cells 1+ (NORMAL); Total Cells Counted 100
[2021-08-03 09:05] LABS: Band Neutrophils Percent 31 % (0-6); Lymphocytes Absolute Manual 1.05 K/mm3 (1.1-4.5); Lymphocytes Percent Manual 12 % (18-44); Metamyelocytes Percent 10 %; Monocytes Absolute Manual 0.35 K/mm3 (0.1-0.90); Monocytes Percent Manual 4 % (3-9); Neutrophils Absolute Manual 6.51 K/mm3 (1.7-7.2); Neutrophils Percent Manual 43 % (46-73)
[2021-08-03] MEDS: SODIUM PHOSPHATE 20 MM in DEXTROSE 5% IN WATER 250 ML 50 MM IVPB (10:03)
[2021-08-03] MEDS: INSULIN GLARGINE (*BKC) 100 UNITS/ML 10 UNITS SUB-Q (10:03)
[2021-08-03 10:17] LABS: Glucose Point of Care 192 mg/dl (65-105)
[2021-08-03 11:09] LABS: Arterial Blood Gas PEEP 10 cmH2O; Arterial Blood Gas Tidal Volume 330 ml; Arterial Blood Gas Vent Mode CMV; Arterial Blood Gas Ventilator rate 26 /MIN
[2021-08-03] MEDS: MIDAZOLAM 100MG/NS 100ML(*CRX) 100 MG/100 ML BAG IV CONT (11:33)
--- NOTE | 2021-08-03 11:37 | PM.IMPN ---
Progress Note: A&P Assessment and Plan (1) Acute hypoxemic respiratory failure: Code(s): J96.01 - Acute respiratory failure with hypoxia Status: Acute Assessment and Plan: Worsening acute respiratory failure with hypoxia secondary to COVID-19 pneumonia complicated by possible and Pseudomonas pneumonia; Current intubated Broad-spectrum IV antibiotics Follow culture results (2) Pneumonia due to COVID-19 virus: Code(s): U07.1 - COVID-19; J12.82 - Pneumonia due to coronavirus disease 2018 Status: Acute Assessment and Plan: Status post remdisever currently on baricitnib (3) Transaminitis: Code(s): R74.01 - Elevation of levels of liver transaminase levels Status: Acute Assessment and Plan: Marginal elevation of liver function tests. Most likely related to COVID-19. (4) GERD (gastroesophageal reflux disease): Code(s): K21.9 - Gastro-esophageal reflux disease without esophagitis Status: Acute Assessment and Plan: Currently asymptomatic. (5) Cluster headache syndrome: Qualifiers: Headache chronicity pattern: chronic headache Intractability: intractable Qualified Code(s): G44.021 - Chronic cluster headache, intractable Code(s): G44.009 - Cluster headache syndrome, unspecified, not intractable Status: Acute Assessment and Plan: Currently asymptomatic. Tylenol as needed. (6) Hypertension: Code(s): I10 - Essential (primary) hypertension Status: Acute Assessment and Plan: Blood pressure medication was held because of septic shock secondary to COVID-19 pneumonia and bacterial pneumonia (7) Takotsubo syndrome: Code(s): I51.81 - Takotsubo syndrome Status: Acute Assessment and Plan: Beta-lamar as tolerated cardiology following (8) Bacterial pneumonia: Code(s): J15.9 - Unspecified bacterial pneumonia Status: Acute Assessment and Plan: Culture was positive for Pseudomonas and Enterococcus continue vancomycin and cefepime Subjective Date/time seen: 08/03/21 11:37 Interval history: Patient seen and examined Patient still intubated Tolerated tube feeding Weaned off of pressors Afebrile Blood culture was for Pseudomonas and Enterococcus There cardiology was likely patient have takotsubo disease I am seeing the patient for pneumonia Exam Narrative: Intubated Chest not kept neck Abdomen nondistended CVS regular Objective Data Vital Signs Vital Signs: Vital Signs - 24 hr 08/02/21 12:00 12/13/21 14:00 08/02/21 14:45 Temperature 98 F Pulse Rate 108 H 110 H 118 H Respiratory Rate 26 H 26 H 30 H Blood Pressure 100/57 L 124/62 Pulse Oximetry 93 89 L 08/02/21 15:18 08/02/21 15:19 08/02/21 15:33 Temperature Pulse Rate 115 H 115 H 118 H Respiratory Rate 26 H 30 H Blood Pressure Pulse Oximetry 92 08/02/21 15:38 08/02/21 16:00 08/02/21 18:00 Temperature 99.3 F Pulse Rate 120 H 121 H 115 H Respiratory Rate 30 H 26 H 26 H Blood Pressure 128/61 122/59 L 130/65 Pulse Oximetry 92 92 08/02/21 19:04 08/02/21 20:00 08/02/21 22:00 Temperature 99.4 F Pulse Rate 115 H 114 H 91 Respiratory Rate 26 H 26 H Blood Pressure 125/61 114/54 L Pulse Oximetry 92 92 91 08/02/21 22:02 08/02/21 22:09 08/02/21 22:17 Temperature Pulse Rate 107 H 109 H 106 H Respiratory Rate 26 H 26 H Blood Pressure Pulse Oximetry 92 08/02/21 23:30 08/03/21 00:00 08/03/21 00:57 Temperature 98.5 F Pulse Rate 111 H 115 H 109 H Respiratory Rate 26 H 26 H Blood Pressure 113/65 119/56 L Pulse Oximetry 93 93 08/03/21 01:14 08/03/21 02:00 08/03/21 02:37 Temperature Pulse Rate 110 H 107 H 109 H Respiratory Rate 26 H 26 H 26 H Blood Pressure 117/64 119/66 Pulse Oximetry 94 08/03/21 02:45 08/03/21 02:57 08/03/21 04:00 Temperature 98.7 F Pulse Rate 107 H 107 H 108 H Respiratory Rate 26 H 26 H 26 H Blood Pressure
--- NOTE | 2021-08-03 12:09 | PCNFU ---
Nutrition Follow-Up Complete: Inadequate Oral Intake as related to mechanical ventilation as evidenced by NPO. goal: Meet estimated nutritional needs. Patient is progressing towards goal. We will continue current goal. Pt current nutrition is Vital AF 1.2 at 55 ml/hr over 22 hours. Last recorded weight is 74 kg, up from 71.6 kg on admit. Bowel Motility:NO BM reported, Miralax and Colace given. Labs Reviewed:PO4 1.8,Cr 0.4,BUN 23, Alb 2.0,Na 130 Meds Noted:Atrovent, Protonix, Versed, Fentanyl, Lantus, Vancomycin, Coreg, Levophed, Lovenox. Skin:WNL Additional Notes: Patient remains on mechanical vent and tube feedings of Vital AF 1.2 at 55 ml/hr over 22 hours. Current tube feedings are providing 1452 kcals/91 gms protein/981 ml water. Agree with diet orders. Monitoring daily in ICU rounds, reassessing every Monday and Monday.
--- NOTE | 2021-08-03 12:47 | PM.PNCARD ---
Progress Note: A&P Assessment and Plan (1) Abnormal EKG: Code(s): R94.31 - Abnormal electrocardiogram [ECG] [EKG] <Lor RothmanFANNYC - Last Filed: 08/03/21 15:08> Status: Acute <Lor RothmanJOHN-C - Last Filed: 08/03/21 15:08> Assessment and Plan: She does have abnormal EKG. EKG changes may be related to underlying ischemia but likely from underlying stress-induced cardiomyopathy. Echo findings consistent with Takotsubo cardiomyopathy. <Lor SterlingFANNY justinC - Last Filed: 08/03/21 15:08> (2) Hypertension: Code(s): I10 - Essential (primary) hypertension <Lor SterlingFANNY justinC - Last Filed: 08/03/21 15:08> Status: Acute <Lor RothmanJOHNPennieC - Last Filed: 08/03/21 15:08> Assessment and Plan: Blood pressure is more stable today. She is off vasopressors. <Lor SterlingJOHN justin-C - Last Filed: 08/03/21 15:08> (3) Pneumonia due to COVID-19 virus: Code(s): U07.1 - COVID-19; J12.82 - Pneumonia due to coronavirus disease 2019 <Lor RothmanJOHN-C - Last Filed: 08/03/21 15:08> Status: Acute <Lor SterlingJOHN justin-C - Last Filed: 08/03/21 15:08> Assessment and Plan: Intubated <Lor SterlingJOHN justin-C - Last Filed: 08/03/21 15:08> (4) Acute hypoxemic respiratory failure: Code(s): J96.01 - Acute respiratory failure with hypoxia <Lor Buddy SterlingJOHN justin-C - Last Filed: 08/03/21 15:08> Status: Acute <Lor SterlingJOHN justin-C - Last Filed: 08/03/21 15:08> Assessment and Plan: Intubated <Lor Rothman APN-C - Last Filed: 08/03/21 15:08> (5) Cardiomyopathy: Code(s): I42.9 - Cardiomyopathy, unspecified <OSWALD Mclaughlin - Last Filed: 08/03/21 15:08> Status: Acute <OSWALD Mclaughlin - Last Filed: 08/03/21 15:08> Assessment and Plan: EF 40-45% with wall motion abnormalities present. The troponin trend, echo findings, and clinical scenario supports a stress-induced cardiomyopathy rather than a large infarct. Previously unable to initiate any medical therapy as she was on vasopressors which she has been weaned off of at this point. Can try very low dose DEMETRIUS and monitor for blood pressure tolerance. Will titrate and use additional agents as blood pressure allows. <OSWALD Mclaughlin - Last Filed: 08/03/21 15:08> (6) Elevated troponin: Code(s): R77.8 - Other specified abnormalities of plasma proteins <OSWALD Mclaughlin - Last Filed: 08/03/21 15:08> Status: Acute <OSWALD Mclaughlin - Last Filed: 08/03/21 15:08> Assessment and Plan: Trend is consistent with injury like a takotsubo rather than acute plaque rupture. <OSWALD Mclaughlin - Last Filed: 08/03/21 15:08> Additional Plan Attending addendum: I agree with the above documentation and plan of care as outlined. <Efe Kramer MD - Last Filed: 08/03/21 16:44> Subjective Date/time seen: 08/03/21 12:47 Cardiology follow up for Takotsubo CMY Date of service 08/03/21: No significant clinical changes. Remains intubated and sedated. <OSWALD Mclaughlin - Last Filed: 08/03/21 15:08> Review of Systems Review of Systems: All systems reviewed & are unremarkable except as noted in HPI and below <OSWALD Mclaughlin - Last Filed: 08/03/21 15:08> Constitutional: Constitutional: Reports body ache(s), Denies excessive sweating and Reports headache(s) <OSWALD Mclaughlin - Last Filed: 08/03/21 15:08> Eyes: Eyes: Denies blurry vision <OSWALD Mclaughlin - Last Filed: 08/03/21 15:08> ENT: Reports Normal hearing present, Reports headache(s), Denies lip swelling and Denies neck pain <OSWALD Mclaughlni - Last Filed: 08/03/21 15:08> Cardiovascular: Cardiovascular: Denies chest pain and Reports dyspnea <OSWALD Mclaughlin - Last Filed: 08/03/21 15:08> Respiratory: Respiratory: Reports cough and Reports dyspnea <Lor Goodwin
--- NOTE | 2021-08-03 13:23 | WPDINTPN ---
Progress Note: A&P Assessment and Plan (1) Sepsis: Code(s): A41.9 - Sepsis, unspecified organism Status: Acute Assessment and Plan: Off of vasopressors. Afebrile and WBC has normalized -Continue vancomycin and cefepime 07/31/2028 blood culture: Pseudomonas sensitive to cefepime -07/31/2021 sputum culture: Pseudomonas sensitive to cefepime -07/31/2021 urine culture: Enterococcus species sensitive to vancomycin (2) Acute hypoxemic respiratory failure: Code(s): J96.01 - Acute respiratory failure with hypoxia Status: Acute Assessment and Plan: Acute hypoxic respiratory failure, patient has been tested positive for COVID on 07/17/2021. Patient received Regen-Cov on 07/22/2021. Patient is unvaccinated -failed high-flow therapy and BiPAP and was intubated on 07/28/2021 -she is currently on CMV mode of ventilation, peep 10 and 60% FiO2. -chest x-ray reviewed -withdraw ETT by 2 cm -ABG reviewed -continue bronchodilators, add Pulmicort -sedation with fentanyl Versed infusion. Patient also on neuromuscular blockade with Nimbex -continue placing patient in prone position for at least 16 hours daily -continue low tidal volume strategy to avoid Volu-trauma (3) Pneumonia due to COVID-19 virus: Code(s): U07.1 - COVID-19; J12.82 - Pneumonia due to coronavirus disease 2019 Status: Acute Assessment and Plan: COVID pneumonia, patient was tested positive on 07/17/2021 -completed 10 day course of remdesivir which was initiated on 07/25/2021 -completed a course of dexamethasone -continue 14 day course of Baricitinib -continue droplet, airborne, contact isolation/precautions (4) GERD (gastroesophageal reflux disease): Code(s): K21.9 - Gastro-esophageal reflux disease without esophagitis Status: Acute Assessment and Plan: Continue Protonix (5) Abnormal EKG: Code(s): R94.31 - Abnormal electrocardiogram [ECG] [EKG] Status: Acute Assessment and Plan: Patient has an abdominal EKG diffuse T-wave inversion. Could be related to coronary artery disease, type 2 infarct acute respiratory and hypoxia -echocardiogram showed likely stressed induced cardiomyopathy (takotsubo cardiomyopathy) could be related to underlying ischemia -patient started on aspirin, -patient was on therapeutic Lovenox per Cardiology which has been switched to prophylactic dose now after discussion with Cardiology -not on beta-lamar or ARB at this time due to hypotension Echocardiogram 07/29/2021: Multiple wall motion abnormalities, EF of 40-45%, Takotsubo's cardiomyopathy seen on the echocardiogram. Grade 1 diastolic dysfunction (6) DVT prophylaxis: Code(s): Z29.9 - Encounter for prophylactic measures, unspecified Status: Acute Assessment and Plan: Switch therapeutic Lovenox to 40 mg SQ daily (7) Hyperglycemia: Code(s): R73.9 - Hyperglycemia, unspecified Status: Acute Assessment and Plan: Sliding scale insulin As Lantus (8) Electrolyte abnormality: Code(s): E87.8 - Other disorders of electrolyte and fluid balance, not elsewhere classified Status: Acute Assessment and Plan: Replace low phos Additional Plan DVT prophylaxis -Lovenox Stress ulcer prophylaxis -PPI Nutrition - Tube Feeds Code Status - Full Code Total Critical Care Time - 35 minutes Due to a high probability of clinically significant, life threatening deterioration, the patient required my highest level of preparedness to intervene emergently and I personally spent this critical care time directly and personally managing the patient. This critical care time included obtaining a history; examining the patient; pulse oximetry; ordering and review of studies; arranging urgent treatment with development of a management plan; evaluation of patient's response to treatment; frequent reassessment; and discussions with other providers. It was exclusive of separately billab
[2021-08-03] MEDS: CISATRACURIUM BESYLATE 200 MG in DEXTROSE 5% 80 ML 9.67 ML IV CONT (13:38)
[2021-08-03 16:45] LABS: Glucose Point of Care 214 mg/dl (65-105)
[2021-08-03 17:08] LABS: Glucose Point of Care 217 mg/dl (65-105)
--- NOTE | 2021-08-03 18:25 | PDCODEBLUE ---
Code Blue Note Code Richard Note Time Arrived at Code Richard: 1820 Initial Rhythm on Arrival: PEA Airway Management: Pt being bagged on arrival Chest Compressions: In process on arrival to bedside Result of Code Richard: Pt Cardiac Rhythm Post Code: Initially we had ROSC with sinus tachycardia than narrow complex tachycardia with a rate in the 170s. Within 20 minutes she once again lost a pulse and despite heroic efforts we were unable to get a pulse back. Code Richard Summary: AARON MAHAN called overhead. According to the nurse the patient was in a prone position when the vent started to alarm at which time she noticed a large amount of blood coming up the ET tube. Patient was repositioned onto her back and then lost a pulse. CPR was initiated. I arrived to the room within a few minutes and noted that there were significant difficulties bagging the patient and concern was for clots in the ET tube. Initial plan was to switch out the ET tube over a bougie however once the ET tube was disconnected from the vent a large amount of blood came out which pushed the ET tube out as well. She was reintubated with a 7.5 ET tube using a GlideScope after copious amounts of blood was suctioned from the oropharynx and airway. She was easier to bag thereafter however her oxygen saturations remained in the mid to upper 80s. ROSC was achieved and she was in a sinus tachycardia for about 10 minutes but switched to a narrow complex atrial tachycardia in the 170s to 180s. Post intubation chest x-ray showed bilateral pneumothoraces with pneumomediastinum and subcutaneous emphysema. Stat call was placed to Dr. Sargent (surgery) for chest tube placement however the patient became bradycardic and went into asystole. Three more rounds of CPR were initiated but we were never able to get a pulse back. Time of called at 19:03. Dr. Gonsales was present at bedside as well. Critical Care Time Critical Care Time: Yes Total Critical Care Time: 35 Attestation: Due to a high probability of clinically significant, life threatening deterioration, the patient required my highest level of preparedness to intervene emergently and I personally spent this critical care time directly and personally managing the patient. This critical care time included obtaining a history; examining the patient; pulse oximetry; ordering and review of studies; arranging urgent treatment with development of a management plan; evaluation of patient's response to treatment; frequent reassessment; and discussions with other providers. It was exclusive of separately billable procedures. Please see Assessment and Plan section and the rest of the note for further information on patient assessment and treatment.
--- NOTE | 2021-08-03 18:30 | WPDPROCEDUR ---
Procedures Intubation Intubation Date: 08/03/21 Intubation Time: 18:32 Consent: Emergent intubation. A pre-procedural Time-Out was completed immediately before starting the procedure and confirmed: Patient Identification, Site, Procedure, Patient Position and the Availability of Requisite Equipment: Yes Sedative: none Laryngoscope: Nura Assist device used: fiber optic device ET tube size: 7.5 Tube secured depth (cm): 24 Tube secured location: teeth Tube placement confirmation: visualized tube passing through cords, equal breath sounds bilaterally, no breath sounds over epigastrium and confirmation by capnometry Intubation complications: none Additional comments: Initial plan was to exchange ET tube over bougie as the old ET tube was full of clots. When BVM was removed a large amount of blood came out and the ET tube was dislodged. The patient was bagged with O2 sats in the upper 80s. She was subsequently intubated easily and on 1st attempt using the Glidescope. Post intubation chest x-ray was reviewed personally showing bilateral pneumonthroacies, pneumomediastinum, and subcutaneous emphysema on the left.
--- NOTE | 2021-08-03 19:07 | PDCODEBLUE ---
Code Blue Note Code Blue Note Time Arrived at Code Blue: 182 Airway Management: Pt intubated during resuscitation Chest Compressions: In process on arrival to bedside Result of Code Blue: Pt Cardiac Rhythm Post Code: Asystole Code Blue Summary: Code blue was called Patient has no pulse Patient has hypoxia Hypoxia was corrected CPR was continued for total of more than 35 minutes I discussed with the family With the heroic if for that was done by the team Unfortunately patient pronounced at 7:04
--- NOTE | 2021-08-03 19:08 | PM.DDS ---
Discharge Summary Date and Time Date of : 08/03/21 Time of : 19:02 Provider Pronounced By: Dr. Ya Probable Cause of Probable Cause of : COVID-19 pneumonia Summary Hospital Course: A41.9 - Sepsis, unspecified organism Status: Acute Assessment and Plan: f vasopressors. vancomycin and cefepime 07/31/2028 blood culture: Pseudomonas sensitive to cefepime -07/31/2021 sputum culture: Pseudomonas sensitive to cefepime -07/31/2021 urine culture: Enterococcus species sensitive to vancomycin (2) Acute hypoxemic respiratory failure: Code(s): J96.01 - Acute respiratory failure with hypoxia Status: Acute Assessment and Plan: Acute hypoxic respiratory failure, patient has been tested positive for COVID on 07/17/2021. Patient received Regen-Cov on 07/22/2021. Patient is unvaccinated -failed high-flow therapy and BiPAP and was intubated on 07/28/2021 -patient condition deteriorated respiratory failure will worsen patient evolved asystole -patient had code blue resuscitation effort was not successful and patient was pronounced (3) Pneumonia due to COVID-19 virus: Code(s): U07.1 - COVID-19; J12.82 - Pneumonia due to coronavirus disease 2019 Status: Acute Assessment and Plan: COVID pneumonia, patient was tested positive on 07/17/2021 (4) GERD (gastroesophageal reflux disease): Code(s): K21.9 - Gastro-esophageal reflux disease without esophagitis Status: Acute Assessment and Plan: Continue Protonix (5) Abnormal EKG: Code(s): R94.31 - Abnormal electrocardiogram [ECG] [EKG] Status: Acute Assessment and Plan: -echocardiogram showed likely stressed induced cardiomyopathy (takotsubo cardiomyopathy) could be related to underlying ischemia Patient was admitted to the hospital with shortness of breath was found to have COVID-19 pneumonia her condition deteriorated rapidly patient required intubation unfortunately patient has asystole code blue was called resuscitation efforts was unsuccessful discussed with the family patient comfortably Additional Data Confirmation of as documented by pronouncing clinician: Pupillary Reflex, Palpable Pulses, Response to Stimuli, Heart Tones and Breath Sounds Name of Provider Notified: same Time Provider Notified: 19:02 Provider Requests Autopsy: No Family Requests Autopsy: No Entry Driver Operator Notified: Yes Date [facility] Notified of : 08/03/21 Time [facility] Notified of : 20:06
--- NOTE | 2021-08-03 19:42 | PC.NURSE ---
Patients ventilator alarming. Entered room to find ET tube filled with blood. Pt turned to supine position with help from 2nd RN and respiratory. Unable to bag pt due to resistance and large amount of blood present in ET tube. MIGUEL A Emanuel in room, pulse checked, pt found in PEA. Dr. Gonsaels at bedside. Notified family of events occurring. Code blue initiated per ACLS protocol.
== END 2021-08-03 19:02 | disposition expired | DRG 207 ==
LOC: ANHED 14:37 → ANH3MEDSUR 17:42 → ANHIMU 07-27 16:25 → ANHICU 07-28 11:40
PROVIDERS: Emergency Medicine; Internal Medicine; Internal Medicine Cardiovascular Disease; Nurse Practitioner; Admitting Provider Internal Medicine; Emergency Provider Nurse Practitioner; PCP Internal Medicine; Visit Provider Internal Medicine
DX: U07.1 COVID-19 (principal); R65.21 Severe sepsis with septic shock; J12.82 Pneumonia due to coronavirus disease 2019; J96.01 Acute respiratory failure with hypoxia; A41.89 Other specified sepsis; J15.1 Pneumonia due to Pseudomonas; J15.8 Pneumonia due to other specified bacteria; I51.81 Takotsubo syndrome; J93.9 Pneumothorax, unspecified; R50.9 Fever, unspecified; Z87.891 Personal history of nicotine dependence; K21.9 Gastro-esophageal reflux disease without esophagitis; I10 Essential (primary) hypertension; M54.50 Low back pain, unspecified; Z88.1 Allergy status to other antibiotic agents; R74.01 Elevation of levels of liver transaminase levels; G44.021 Chronic cluster headache, intractable; R73.9 Hyperglycemia, unspecified; E87.8 Other disorders of electrolyte and fluid balance, not elsewhere classified; I46.9 Cardiac arrest, cause unspecified
CPT/HCPCS: 36415; 36569; 36600; 71045; 71275; 74018; 80048; 80053; 80202; 81001; 82375; 82550; 82565; 82728; 82805; 82948; 83050; 83605; 83615; 83735; 84100; 84450; 84460; 84484; 85025; 85027; 85055; 85610; 86140; 87040; 87070; 87077; 87086; 87088; 87186; 87205; 92950; 93005; 93306; 94002; 94003; 94640; 96365; 96375; 99291; A9270; C1751; C9113; J0171; J0692; J0696; J1100; J1650; J1815; J2250; J2370; J2930; J3010; J3370; J7030; J7060; J7120; Q9967